=== PATIENT | male | born 1990 | race Caucasian/White ===

== ENCOUNTER 2016-11-12 08:21 | Emergency (ER) | payer SELFPAY ==
--- NOTE | 2016-11-12 09:08 | ER Document Report ---
HPI - HPI Onset: Other Onset/Duration: Gradual Quality of pain: Throbbing Pain Level: 5 Context: 26-year-old male wants a pimple cut open on his right forehead. It has been there 3 days and is getting worse without coming to a head he thinks it's too deep without cutting it open. 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 No fever. Associated Symptoms: None Exacerbated by: Denies Relieved by: Denies Similar symptoms previously: Yes Recently seen / treated by doctor: No - ROS ROS below otherwise negative: Yes Systems Reviewed and Negative: Yes All other systems reviewed and negative - CARDIOVASCULAR Cardiovascular: DENIES: Chest pain - REPRODUCTIVE Reproductive: DENIES: : - DERM Skin Color: Normal Past Medical History - General Information source: Patient - Social History Smoking Status: Current Every Day Smoker Chew tobacco use (# tins/day): No Frequency of alcohol use: Occasional Drug Abuse: None Family History: Reviewed & Not Pertinent Patient has suicidal ideation: No Patient has homicidal ideation: No Renal/ Medical History: Denies: Hx Peritoneal Dialysis Musculoskeltal Medical History: Reports Hx Musculoskeletal Trauma Skin Medical History: Reports Hx Cellulitis, Reports Hx MRSA Traumatic Medical History: Reports: Hx Fractures Infectious Medical History: Reports: Hx MRSA Past Surgical History: Reports: Hx Appendectomy - Immunizations Hx Diphtheria, Pertussis, Tetanus Vaccination: Yes Vertical Provider Document - CONSTITUTIONAL Agree With Documented VS: Yes Exam Limitations: No Limitations - INFECTION CONTROL TRAVEL OUTSIDE OF THE [place] IN LAST 30 DAYS: No - HEENT HEENT: Normocephalic Notes: Tender red indurated crusted lesion to the right forehead with surrounding swelling. - NECK Neck: Supple. negative: Lymphadenopathy-Left, Lymphadenopathy-Right - RESPIRATORY O2 Sat by Pulse Oximetry: 100 - MUSCULOSKELETAL/EXTREMETIES Musculoskeletal/Extremeties: MAEW, FROM - NEURO Level of Consciousness: Awake, Alert - DERM Integumentary: Warm, Dry, Abscess - The above Course - Vital Signs Vital signs: Temp Pulse Resp BP Pulse Ox 97.6 F 80 18 127/62 H 100 11/12/16 08:27 11/12/16 08:27 11/12/16 08:27 11/12/16 08:27 11/12/16 08:27 Procedures - Incision and Drainage Right Face Time completed: 10:08 Type: Simple Anesthetic type: 1% Lidocaine mL's of anesthetic: 3 Blade size: 11 I&D procedure: Betadine prep applied, Sterile dressing applied - corner of gauze packing Incision Method: Incision made by scalpel - 4mm with wrinkle line forehead Amount/type of drainage: large sebaceous abscess Adult Head Front/Back picture: 1 - secauceous abscess 4 mm horozontal cut Discharge - Discharge Clinical Impression: sebaceous abscess incision and drainage Condition: Good Disposition: HOME, SELF-CARE Instructions: Abscess ([facility]), Warm Packs ([facility]), Bactroban Ointment ([facility]), Trimethoprim-Sulfa ([facility]) Additional Instructions: warm compress bactroban when the pimple is small to er any concerns The dressing on for 2 days and then remove the packing at home Prescriptions: Mupirocin [Bactroban 2% Ointment 22 gm] 1 applic TP TID #22 gm Oxycodone HCl/Acetaminophen [Percocet 5-325 mg Tablet] 1 - 2 tab PO ASDIR PRN # 10 tablet PRN Reason: Sulfamethoxazole/Trimethoprim [Sulfamethoxazole-Tmp Ds Tablet] 1 each PO BID # 14 tablet Forms: Return to Work
[2016-11-12] MEDS ORDERED: OXYCODONE-ACETAMINOPHEN 5-325 MG TABLET PO ONE (10:07)
[2016-11-12] MEDS ORDERED: ONDANSETRON 4 MG TAB.RAPDIS PO ONE (10:07)
[2016-11-12] MEDS ORDERED: SULFAMETHOXAZOLE/TRIMETHOPRIM 800-160 MG TABLET PO ONE (10:07)
[2016-11-12 10:41] VITALS: BP 121/74
== END 2016-11-12 10:41 | disposition home or self-care (01) ==
LOC: ER 08:21
PROC: 0H91XZZ Drainage of Face Skin, External Approach (ICD-10-PCS; principal; 2016-11-12)
DX: L02.811 Cutaneous abscess of head [any part, except face] (principal)
CPT/HCPCS: 99283; 10060; S0119

== ENCOUNTER 2016-12-19 00:50 | Emergency (ER) | payer SELFPAY ==
[2016-12-19 01:33] VITALS: BP 119/73
== END 2016-12-19 03:53 | disposition left against medical advice (07) ==
LOC: ER 00:50
DX: Z53.21 Procedure and treatment not carried out due to patient leaving prior to being seen by health care provider (principal)

== ENCOUNTER 2017-09-26 09:09 | Emergency (ER) | payer SELFPAY ==
[2017-09-26 09:13] VITALS: BP 133/84
--- NOTE | 2017-09-26 09:22 | ER Document Report ---
ED General - General Chief Complaint: Ear Pain Stated Complaint: RIGHT EAR PAIN Time Seen by Provider: 09/26/17 09:20 Mode of Arrival: Ambulatory Information source: Patient Notes: Patient is a 26-year-old male who presents with right ear pain that started suddenly this morning when he woke up. He also endorses associated "fullness feeling" to right ear and some lightheadedness. He denies any fever, chills, headache, changes in vision, tinnitus, decreased or loss of hearing, cough, sore throat, vomiting or diarrhea. He did take a hydrocodone this morning and states "it did nothing for my pain." He is otherwise doing well. TRAVEL OUTSIDE OF THE [place] IN LAST 30 DAYS: No - Related Data Allergies/Adverse Reactions: No Known Allergies Allergy (Verified 09/26/17 09:10) Past Medical History - Social History Smoking Status: Current Every Day Smoker Family History: Reviewed & Not Pertinent Renal/ Medical History: Denies: Hx Peritoneal Dialysis Musculoskeltal Medical History: Reports Hx Musculoskeletal Trauma Skin Medical History: Reports Hx Cellulitis, Reports Hx MRSA Traumatic Medical History: Reports: Hx Fractures Infectious Medical History: Reports: Hx MRSA Past Surgical History: Reports: Hx Appendectomy - Immunizations Hx Diphtheria, Pertussis, Tetanus Vaccination: Yes Review of Systems - Review of Systems Constitutional: See HPI EENT: See HPI Cardiovascular: No symptoms reported Respiratory: No symptoms reported Gastrointestinal: No symptoms reported Genitourinary: No symptoms reported Male Genitourinary: No symptoms reported Musculoskeletal: No symptoms reported Skin: No symptoms reported Hematologic/Lymphatic: No symptoms reported Neurological/Psychological: No symptoms reported Physical Exam - Vital signs Vitals: Temp Pulse Resp BP Pulse Ox 97.9 F 102 H 18 133/84 H 98 09/26/17 09:13 09/26/17 09:13 09/26/17 09:13 09/26/17 09:13 09/26/17 09:13 - Notes Notes: PHYSICAL EXAM: CONSTITUTIONAL: Alert and oriented, well-appearing and in no acute distress. HENT: Normocephalic, atraumatic. Ear canals without erythema or foreign body, ear canals erythematous bilaterally with R TM noted to have air-fluid levels. Nares clear without erythema, septal hematoma or deviation, airway patent. Oropharynx clear without erythema, tonsilar exudate or malocclusion. Trachea midline. Uvula midline. Moist mucous membranes. EYES: Pupils equal round and reactive to light, EOM intact. Sclera anicteric, conjunctiva are normal. No entrapment. NECK: supple without lymphadenopathy. No midline tenderness or paraspinous muscle spasms. No step-offs or deformities. ROM intact. HEART: Regular rate and rhythm without murmurs. LUNGS: CTAB and equal. No wheezes, rales or rhonchi. GI: Normactive bowel sounds. Nontender, non-distended. No organomegaly. no CVAT. EXTREMITIES: Normal range of motion, no pitting edema. No cyanosis. Cap Refill < 3 seconds. NEURO: Cranial nerves grossly intact. Normal sensory/motor exams. PSYCH: Normal mood, normal affect. SKIN: Warm and dry. Normal turgor. No rashes or lesions noted. Course - Re-evaluation Re-evalutation: 09/26/17 09:34 Patient seen and examined. Patient alert and oriented, nontoxic in appearance, speaking full sentences without difficulty. Exam consistent with serous right otitis media. Will treat with antihistamine and discussed watchful waiting with use of antibiotics. Advised NSAIDs for pain. At this time, will discharge with return precautions and follow-up recommendations. Verbal discharge instructions given at the bedside and opportunity for questions given. Medication warnings reviewed. Patient is in agreement with this plan and has verbalized understanding of return precautions and the need for primary care follow-up in the next 24-72 hours. - Vital Signs Vital signs: Temp Pulse Resp BP Pulse Ox 97.9 F 102 H 18 133/84 H 98 09/26/17 09:13 09/26/17 09:13 09/26/17 09:13 09/26/17 09:13 09/26/17 09:13 Discharge - Discharge Clinical Impression: Right acute otitis media Condition: Stable Disposition: HOME, SELF-CARE Additional Instructions: OTITIS MEDIA: You have a middle ear infection (otitis media). This is usually a complication of a cold or sore throat. The middle ear cavity becomes filled with infection. Pressure and stretching of the ear drum cause pain. Antibiotics are required. A 10 day course is usually prescribed. A decongestant may be recommended if you have a "runny nose." You may need anesthetic drops or other pain medication. A follow-up exam may be recommended to make sure the infection has completely cleared. If the ear begins to drain, it means the ear drum has ruptured. This will usually heal spontaneously. However, it means you should keep the ear dry until re-examined by a doctor. Call the physician or return for examination at once if there is severe headache, stiff neck, confusion, increasing fever, or dizziness. You should improve significantly within two days. If you're not better, call the doctor. OTITIS MEDIA--CHILD: Your child has a middle ear infection (otitis media). This often occurs with a cold or sore throat. The middle ear cavity is filled by infection. The usual treatment for otitis media is a 10 day course of antibiotics. A decongestant may be recommended if your child has a "runny nose." Tylenol and/ or codeine may have been prescribed if your child is unable to sleep because of pain or for the fever. Numbing ear drops are sometimes given to decrease severe ear pain. A follow-up exam is often done in two weeks to make sure the infection has completely cleared. Call the doctor if your child does not improve within 48 hours, or if the child appears to be more ill in any way such as severe headache, stiff neck, repeated vomiting, or lethargy. If the ear begins to drain, it means the ear drum has ruptured. This will usually heal spontaneously, but it means you should keep the ear dry until the re-examination is performed. AZITHROMYCIN: Azithromycin (Zithromax) is a broad spectrum antibiotic in the same class as erythromycin. It can treat a variety of bacterial infections, but is most frequently used for respiratory infections. Azithromycin is extremely long-lasting. It accumulates in body tissues and continues to kill bacteria for many days. In order to improve absorption, Azithromycin should be taken at least one hour before or two hours after a meal. It does not have the same strong tendency to upset the stomach as erythromycin and is usually very well tolerated. Patients who have had a rash or other true allergic reactions to erythromycin should not take this medication. Call if you develop gastrointestinal distress, severe diarrhea, rash, hives, itching, or shortness of breath. USE OF ACETAMINOPHEN (Tylenol): Acetaminophen may be taken for pain relief or fever control. It's much safer than aspirin, offering a wider range of "safe" dosages. It is safe during . Some brand names are Tylenol, Panadol, Datril, Anacin 3, Tempra, and Liquiprin. Acetaminophen can be repeated every four hours. The following are maximum recommended dosages: WEIGHT Dose Drops Elixir Chewable( 80mg) (LBS.) drprs=droppers tsp=teaspoon 6 40 mg 0.4 ml (1/2) 6-11 80 mg 0.8 ml (full) tsp 1 tab 12-16 120 mg 1 1/2 drprs 3/4 tsp 1 1/2 tabs 17-23 160 mg 2 drprs 1 tsp 2 tabs 24-30 240 mg 3 drprs 1 1/2 tsp 3 tabs 30-35 320 mg 2 tsp 4 tabs 36-41 360 mg 2 1/4 tsp 4 1/2 tabs 42-47 400 mg 2 1/2 tsp 5 tabs 48-53 480 mg 3 tsp 6 tabs 54-59 520 mg 3 1/4 tsp 6 1/2 tabs 60-64 560 mg 3 1/2 tsp 7 tabs 65-70 600 mg 3 3/4 tsp 7 1/2 tabs 71-76 640 mg 4 tsp 8 tabs 77-82 720 mg 4 1/2 tsp 9 tabs 83-88 800 mg 5 tsp 10 tabs >89 pounds or adults 650 mg to 900 mg Acetaminophen can be repeated every four hours. Maximum dose not to exceed 4000 mg a day. These maximum recommended dosages are slightly higher than the dosages written on the product container, but these dosages are very safe and below the toxic dosage for acetaminophen. FOLLOW-UP CARE: If you have been referred to a physician for follow-up care, call the physician s office for an appointment as you were instructed or within the next two days. If you experience worsening or a significant change in your symptoms, notify the physician immediately or return to the Emergency Department at any time for re-evaluation. Prescriptions: Azithromycin [Zithromax 250 mg Tablet] 250 mg PO ASDIR #6 tablet Naproxen [Naprosyn 250 mg Tablet] 250 mg PO BID #14 tablet Forms: Elevated Blood Pressure
[2017-09-26] MEDS ORDERED: IBUPROFEN 600 MG TABLET PO ONE (09:32)
== END 2017-09-26 09:48 | disposition home or self-care (01) ==
LOC: ER 09:09
DX: H66.91 Otitis media, unspecified, right ear (principal); H92.01 Otalgia, right ear; R42 Dizziness and giddiness; F17.200 Nicotine dependence, unspecified, uncomplicated; Z86.14 Personal history of Methicillin resistant Staphylococcus aureus infection
CPT/HCPCS: 99282

== ENCOUNTER 2017-12-24 11:55 | Emergency (ER) | payer SELFPAY ==
[2017-12-24 12:03] VITALS: BP 123/77
[2017-12-24] MEDS ORDERED: CEPHALEXIN 500 MG CAPSULE PO ONE (12:33)
[2017-12-24] MEDS ORDERED: SULFAMETHOXAZOLE/TRIMETHOPRIM 800-160 MG TABLET PO ONE (12:33)
[2017-12-24] MEDS ORDERED: IBUPROFEN 800 MG TABLET PO ONE (12:33)
--- NOTE | 2017-12-24 12:39 | ER Document Report ---
ED Skin Rash/Insect Bite/Abscs - General Chief Complaint: Insect Bite Stated Complaint: POSSIBLE SPIDER BITE Time Seen by Provider: 12/24/17 12:17 Mode of Arrival: Ambulatory Information source: Patient Notes: 27-year-old male presented ED for complaint of possible spider bite 2 days ago to his right forearm antecubital and upper arm. He states he had a soft area that he stuck a needle in the day and got a little bit of pus out and then came in to have his arm checked out. He denies any use of drugs. TRAVEL OUTSIDE OF THE [place] IN LAST 30 DAYS: No - HPI Patient complains to provider of: Tender/swollen area Onset: Other - 2 days ago Onset/Duration: Gradual Quality of pain: Achy Severity: Mild Pain Level: 1 Skin Character: Erythema, Tenderness, Thickening Skin Temperature: Warm Quality of rash: Painful Identify cause: No Exacerbated by: Denies Relieved by: Denies Similar symptoms previously: Yes Recently seen / treated by doctor: No - Related Data Allergies/Adverse Reactions: No Known Allergies Allergy (Verified 12/24/17 12:09) Past Medical History - General Information source: Patient - Social History Smoking Status: Current Every Day Smoker Cigarette use (# per day): Yes - 1-1/2 packs per day Chew tobacco use (# tins/day): No Smoking Education Provided: Yes - 4 minutes Frequency of alcohol use: None Drug Abuse: None Occupation: [employer] Lives with: Family Family History: Arthritis, COPD, CVA, DM, Malignancy, Thyroid Disfunction. denies: CAD, Hyperlipidemia, Hypertension Patient has suicidal ideation: No Patient has homicidal ideation: No - Past Medical History Cardiac Medical History: Reports: None Pulmonary Medical History: Reports: None EENT Medical History: Reports: None Neurological Medical History: Reports: None Endocrine Medical History: Reports: None Renal/ Medical History: Reports: None Malignancy Medical History: Reports None GI Medical History: Reports: None Musculoskeltal Medical History: Reports Hx Musculoskeletal Trauma Skin Medical History: Reports Hx Cellulitis, Reports Hx MRSA Psychiatric Medical History: Reports: None Traumatic Medical History: Reports: Hx Fractures Infectious Medical History: Reports: Hx MRSA Past Surgical History: Reports: Hx Appendectomy - Immunizations Hx Diphtheria, Pertussis, Tetanus Vaccination: Yes Review of Systems - Review of Systems Constitutional: No symptoms reported EENT: No symptoms reported Cardiovascular: No symptoms reported Respiratory: No symptoms reported Gastrointestinal: No symptoms reported Genitourinary: No symptoms reported Male Genitourinary: No symptoms reported Musculoskeletal: No symptoms reported Skin: Change in color Hematologic/Lymphatic: No symptoms reported Neurological/Psychological: No symptoms reported Physical Exam - Vital signs Vitals: Temp Pulse Resp BP Pulse Ox 98.2 F 102 H 18 123/77 96 12/24/17 11:59 12/24/17 11:59 12/24/17 11:59 12/24/17 11:59 12/24/17 11:59 Interpretation: Normal - General General appearance: Appears well, Alert - HEENT Head: Normocephalic, Atraumatic Eyes: Normal Pupils: PERRL - Respiratory Respiratory status: No respiratory distress Chest status: Nontender Breath sounds: Normal Chest palpation: Normal - Cardiovascular Rhythm: Regular Heart sounds: Normal auscultation Murmur: No - Abdominal Inspection: Normal Distension: No distension Bowel sounds: Normal Tenderness: Nontender Organomegaly: No organomegaly - Back Back: Normal, Nontender - Extremities General upper extremity: Normal inspection, Nontender, Normal color, Normal ROM , Normal temperature General lower extremity: Normal inspection, Nontender, Normal color, Normal ROM , Normal temperature, Normal weight bearing. No: Mauricio's sign - Neurological Neuro grossly intact: Yes Cognition: Normal Orientation: AAOx4 Chavez Coma Scale Eye Opening: Spontaneous Jones Coma Scale Verbal: Oriented Chavez Coma Scale Motor: Obeys Commands Jones Coma Scale Total: 15 Speech: Normal Motor strength normal: LUE, RUE, LLE, RLE Sensory: Normal - Psychological Associated symptoms: Normal affect, Normal mood - Skin Skin Temperature: Warm Skin Moisture: Dry Skin Color: Normal Skin irregularity: negative: Abscess Location of irregularity: Extremities - Right arm from just above the antecubital to a little below the antecubital Character of irregularity: Erythematous Irregularity with: Swelling, Tenderness - Red firm tender area to the right upper forearm antecubital and lower upper arm. No definite abscess noted, Thickening Course - Vital Signs Vital signs: Temp Pulse Resp BP Pulse Ox 98.2 F 102 H 18 123/77 96 12/24/17 11:59 12/24/17 11:59 12/24/17 11:59 12/24/17 11:59 12/24/17 11:59 Discharge - Discharge Clinical Impression: Cellulitis of right arm Condition: Stable Disposition: HOME, SELF-CARE Instructions: Family Physicians / Practices Additional Instructions: CELLULITIS: You have an infection of your skin and underlying soft tissues called cellulitis. This is due to bacteria, which can enter through any break in the skin, or even through an irritated hair follicle. Untreated, cellulitis will usually worsen. Antibiotics are required. Usually, warm packs or warm soaks, and elevation of the infected area are recommended. You should start getting better within 24 to 36 hours. Most infections respond quickly to the right medication. Follow-up care is important, however, to check for abscess (boil) formation, unsuspected foreign body, or resistant infection. If you develop fever, chills, or if the area of infection is becoming rapidly more swollen or painful, call the doctor at once. MRSA CELLULITIS: You have an infection of your skin and underlying soft tissues called cellulitis. This is due to bacteria, which can enter through any break in the skin, or even through an irritated hair follicle. Untreated, cellulitis will usually worsen and may form an abscess which requires draining. Although many bacterial organisms can cause cellulitis and abscess formations, the most likely bacteria is Methicillin-Resistant Staph Aureus, or MRSA for short. Antibiotics are required. Usually, warm packs or warm soaks, and elevation of the infected area are recommended. You should start getting better within 24 to 36 hours. Most infections respond quickly to the right medication. Follow-up care is important, however, to check for abscess (boil) formation, unsuspected foreign body, or resistant infection. If you develop fever, chills, or if the area of infection is becoming rapidly more swollen or painful, call the doctor at once. TRIMETHOPRIM-SULFA: You have been given a prescription for trimethoprim-sulfa (TMS, Septra, Bactrim). This is a combination antibiotic of the sulfa class, often used for urinary tract infections, middle ear infections, bronchitis, shigella intestinal infection, and Pneumocystis pneumonia. TMS is usually well-tolerated. Occasional side effects include nausea and decreased appetite. Septra is not recommended for infants less than two months of age. Do not take this medication if you have experienced severe side effects or allergy to sulfa medicine. You should stop this medicine at once and contact your physician if you develop any rash, joint pain, shortness of breath, bruising, or jaundice ( yellow color in the skin), or if you develop any other new or unusual symptoms. Cephalexin The antibiotic you've been prescribed is a member of the cephalosporin class. This type of antibiotic covers a wide variety of infections, including those of the skin, lungs, and urinary tract. It's useful for staph infections. This antibiotic is slightly similar to the penicillin family. In rare cases , a person who is allergic to penicillin will also be allergic to this medication. If you have had a severe allergic reaction to penicillin, and have not taken this antibiotic since that time, notify your doctor. Antibiotics which cover many germs ("broad spectrum" antibiotics) are more likely to cause diarrhea or "yeast" infections. Women prone to vaginal yeast problems may suffer an attack after taking this antibiotic. In infants, oral thrush (white spots "stuck" on the cheek) or yeast diaper rash may result. See your doctor if these problems occur. Call at once if you develop itching, hives , shortness of breath, or lightheadedness. Anti-Inflammatory Medication You have received a prescription for an antiinflammatory agent. This is an excellent, safe drug for pain control. In addition, it has potent antiinflammatory effects which are beneficial, especially in the treatment of injuries, arthritis, or tendonitis. It's best to take this medicine with food. Persons with ulcer disease or allergy to aspirin should notify their physician of this before taking this drug. Take the medication exactly as prescribed. Don't take additional doses unless instructed to do so by your doctor. If you develop wheezing, shortness of breath, hives, faintness, stomach pain, vomiting, or dark black stools, return for re-evaluation at once. Epsom Salt Soaks Soak the wound area in a container of warm epsom salt water. If you can't get the wound area into a bucket or joseph, use a folded towel soaked in the epsom salt solution and apply to the area. Use clean hot tap water (about the temperature of a very warm bath), mixing in about one (1) teaspoon for every pint of water. Two gallon --> 16 teaspoons Epsom Salts One gallon --> 8 teaspoons Epsom Salts Two quarts --> 4 teaspoons Epsom Salts One quart --> 2 teaspoons Epsom Salts Soak the wound for about 20 minutes while gently moving it around in the water. Repeat this four (4) times a day. FOLLOW-UP CARE: If you have been referred to a physician for follow-up care, call the physician s office for an appointment as you were instructed or within the next two days. If you experience worsening or a significant change in your symptoms, notify the physician immediately or return to the Emergency Department at any time for re-evaluation. Prescriptions: Ibuprofen 800 mg PO Q8HP PRN #14 tablet PRN Reason: Cephalexin Monohydrate [Keflex 500 mg Capsule] 500 mg PO QID #20 capsule Sulfamethoxazole/Trimethoprim [Bactrim Ds Tablet] 1 each PO BID #20 tablet Forms: Smoking Cessation Education, Return to Work
== END 2017-12-24 13:24 | disposition home or self-care (01) ==
LOC: ER 11:55
DX: L03.113 Cellulitis of right upper limb (principal); F17.210 Nicotine dependence, cigarettes, uncomplicated; Z71.6 Tobacco abuse counseling; Z86.14 Personal history of Methicillin resistant Staphylococcus aureus infection
CPT/HCPCS: 99281; 99406

== ENCOUNTER 2018-03-08 11:21 | Emergency (ER) | payer SELFPAY ==
[2018-03-08 11:26] VITALS: BP 136/88
[2018-03-08] MEDS ORDERED: PENICILLIN V POTASSIUM 500 MG TABLET PO ONE (11:50)
[2018-03-08] MEDS ORDERED: OXYCODONE-ACETAMINOPHEN 5-325 MG TABLET PO ONE (11:50)
--- NOTE | 2018-03-08 11:56 | ER Document Report ---
HPI - HPI Patient complains to provider of: Dental pain Onset: Other - 3 days Onset/Duration: Persistent Quality of pain: Sharp Pain Level: 5 Context: Patient complains of dental pain from a broken tooth for the past 3 days. Patient states he has had purulent drainage from his gums. Patient denies any fever. Associated Symptoms: Other - Dental infection Exacerbated by: Denies Relieved by: Denies Similar symptoms previously: Yes Recently seen / treated by doctor: No - ROS ROS below otherwise negative: Yes Systems Reviewed and Negative: Yes All other systems reviewed and negative - CONSTITUTIONAL Constitutional: DENIES: Fever, Chills - EENT Notes: Dental pain - RESPIRATORY Respiratory: DENIES: Coughing - GASTROINTESTINAL Gastrointestinal: DENIES: Nausea, Patient vomiting - REPRODUCTIVE Reproductive: DENIES: : - DERM Skin Color: Normal Skin Problems: None Past Medical History - General Information source: Patient - Social History Smoking Status: Current Every Day Smoker Chew tobacco use (# tins/day): No Frequency of alcohol use: None Drug Abuse: None Occupation: [employer] Lives with: Spouse/Significant other Family History: Arthritis, COPD, CVA, DM, Malignancy, Thyroid Disfunction. denies: CAD, Hyperlipidemia, Hypertension Patient has suicidal ideation: No Patient has homicidal ideation: No Renal/ Medical History: Denies: Hx Peritoneal Dialysis Musculoskeltal Medical History: Reports Hx Musculoskeletal Trauma Skin Medical History: Reports Hx Cellulitis, Reports Hx MRSA Traumatic Medical History: Reports: Hx Fractures Infectious Medical History: Reports: Hx MRSA Past Surgical History: Reports: Hx Appendectomy, Hx Orthopedic Surgery - Immunizations Hx Diphtheria, Pertussis, Tetanus Vaccination: Yes Vertical Provider Document - CONSTITUTIONAL Agree With Documented VS: Yes Exam Limitations: No Limitations General Appearance: WD/WN, No Apparent Distress - INFECTION CONTROL TRAVEL OUTSIDE OF THE [place] IN LAST 30 DAYS: No - HEENT HEENT: Atraumatic, Normocephalic Mouth Diagram: 1 - Dental decay, gingival induration, no drainable abscess, no submental or sublingual swelling - NECK Neck: Normal Inspection, Supple. negative: Lymphadenopathy-Left, Lymphadenopathy-Right - RESPIRATORY Respiratory: Breath Sounds Normal, No Respiratory Distress - CARDIOVASCULAR Cardiovascular: Regular Rate, Regular Rhythm - MUSCULOSKELETAL/EXTREMETIES Musculoskeletal/Extremeties: MAEW - NEURO Level of Consciousness: Awake, Alert, Appropriate Motor/Sensory: No Motor Deficit - DERM Integumentary: Warm, Dry Course - Re-evaluation Re-evalutation: 03/08/18 11:51 Controlled substance database reviewed. 03/08/18 12:00 Offered patient a dental block, patient declined. - Vital Signs Vital signs: Temp Pulse Resp BP Pulse Ox 98.3 F 105 H 18 136/88 H 97 03/08/18 11:24 03/08/18 11:24 03/08/18 11:24 03/08/18 11:24 03/08/18 11:24 Discharge - Discharge Clinical Impression: Infected dental caries Condition: Stable Disposition: HOME, SELF-CARE Instructions: Dental Infection or Abscess ([facility]), Penicillin V K ([facility]), Ultram ( [facility]) Additional Instructions: Return immediately for any new or worsening symptoms Followup with your primary care provider, call tomorrow to make a followup appointment Follow-up with a dentist Prescriptions: Naproxen [Naprosyn 250 Nmg Tablet] 1 tab PO BID #14 tablet Penicillin V Potassium [Penicillin Vk 500 mg Tablet] 500 mg PO BID #20 tablet Tramadol HCl [Ultram 50 mg Tablet] 50 mg PO ASDIR PRN #20 tablet PRN Reason: Forms: Smoking Cessation Education, Return to Work Referrals: DENTISTRY [Provider Group] - Follow up as needed [facility] [Provider Group] - Follow up as needed
== END 2018-03-08 12:01 | disposition home or self-care (01) ==
LOC: ER 11:21
DX: K04.7 Periapical abscess without sinus (principal); K02.9 Dental caries, unspecified; K08.89 Other specified disorders of teeth and supporting structures; F17.200 Nicotine dependence, unspecified, uncomplicated
CPT/HCPCS: 99282

== ENCOUNTER 2018-03-10 11:34 | Emergency (ER) | payer SELFPAY ==
[2018-03-10] MEDS ORDERED: NORMAL SALINE 1000 ML 1,000 ML IV ONE (12:09)
[2018-03-10] MEDS ORDERED: MORPHINE SULFATE 10 MG/ML INJ IV ONE ×2 (12:09→14:25)
--- NOTE | 2018-03-10 12:13 | ER Document Report ---
ED Medical Screen (RME) - General Chief Complaint: Toothache Stated Complaint: TOOTH PAIN Time Seen by Provider: 03/10/18 12:09 TRAVEL OUTSIDE OF THE [place] IN LAST 30 DAYS: No - HPI Notes: 03/10/18 12:10 Unfortunate 27-year-old male presents with fever, weakness and chills increasing right-sided facial swelling. Patient has a broken lower right molar. Seen in the emergency department last week. Was given prescription for penicillin. Patient was scheduled to follow-up with his dentist this afternoon. But due to the profound infection dentist would not see the patient. Patient comes in with profound pain 10/10 throbbing in nature without radiation nothing is made it better or worse. An increasing right-sided facial swelling. Patient is now experiencing trismus inability to open his mouth increased purulent discharge into his mouth foul swell fevers at home. Patient took antipyretics prior to arrival. Swelling on patient's face has increased greatly since being seen last 03/10/18 12:12 - Related Data Allergies/Adverse Reactions: No Known Allergies Allergy (Verified 03/10/18 11:35) Past Medical History - Social History Chew tobacco use (# tins/day): - 15 Frequency of alcohol use: None Drug Abuse: None Renal/ Medical History: Denies: Hx Peritoneal Dialysis Musculoskeltal Medical History: Reports Hx Musculoskeletal Trauma Skin Medical History: Reports Hx Cellulitis, Reports Hx MRSA Traumatic Medical History: Reports: Hx Fractures Infectious Medical History: Reports: Hx MRSA Past Surgical History: Reports: Hx Appendectomy, Hx Orthopedic Surgery - Right hand - Immunizations Hx Diphtheria, Pertussis, Tetanus Vaccination: Yes Review of Systems - Review of Systems Notes: REVIEW OF SYSTEMS: CONSTITUTIONAL fever EENT: -eye pain, -difficulty swallowing, -nasal congestion CARDIOVASCULAR: -chest pain, -syncope. RESPIRATORY: -cough, -SOB GASTROINTESTINAL: -abdominal pain, -nausea, -vomiting, -diarrhea GENITOURINARY: -dysuria, -hematuria MUSCULOSKELETAL: -back pain, -neck pain SKIN: -rash or skin lesions. HEMATOLOGIC: -easy bruising or bleeding. LYMPHATIC: -swollen, enlarged glands. NEUROLOGICAL: -altered mental status or loss of consciousness, -headache, - neurologic symptoms PSYCHIATRIC: -anxiety, -depression. ALL OTHER SYSTEMS REVIEWED AND NEGATIVE. Physical Exam - Vital signs Vitals: Temp Pulse Resp BP Pulse Ox 98.6 F 108 H 18 135/90 H 99 03/10/18 11:44 03/10/18 11:44 03/10/18 11:44 03/10/18 11:44 03/10/18 11:44 - Notes Notes: PHYSICAL EXAMINATION: GENERAL: Well-appearing, well-nourished and in no acute distress. HEAD: Atraumatic, normocephalic. EYES: Pupils equal round and reactive to light, extraocular movements intact, sclera anicteric, conjunctiva are normal. ENT: Obvious right-sided facial swelling, purulent discharge from patient's mouth. We are molar. Unable to palpate specific fluctuant mass in patient's right lower cheek although with profound swelling. NECK: Normal range of motion, supple without lymphadenopathy LUNGS: Breath sounds clear to auscultation bilaterally and equal. No wheezes rales or rhonchi. HEART: Regular rate and rhythm without murmurs ABDOMEN: Soft, nontender, normoactive bowel sounds. No guarding, no rebound. No masses appreciated. EXTREMITIES: Normal range of motion, no pitting or edema. No cyanosis. NEUROLOGICAL: Cranial nerves grossly intact. Normal speech, normal gait. Normal sensory and motor exams. PSYCH: Normal mood, normal affect. SKIN: Warm, Dry, normal turgor, no rashes or lesions noted. Course - Vital Signs Vital signs: Temp Pulse Resp BP Pulse Ox 98.6 F 108 H 18 135/90 H 99 03/10/18 11:44 03/10/18 11:44 03/10/18 11:44 03/10/18 11:44 03/10/18 11:44
[2018-03-10 13:05] LABS: ABSOLUTE EOSINOPHILS # (AUTO) 0.1 10^3/uL (0.0-0.6); ABSOLUTE LYMPHOCYTES (AUTO) 2.6 10^3/uL (0.5-4.7); ABSOLUTE MONOCYTES (AUTO) 0.5 10^3/uL (0.1-1.4); ABSOLUTE NEUT (AUTO) 5.3 10^3/uL (1.7-8.2); BASOPHILS % (AUTO) 0.5 % (0-2); EOSINOPHILS % (AUTO) 1.6 % (0-6); HEMOGLOBIN 14.1 g/dL (13.5-17.0); LYMPHOCYTES % (AUTO) 30.3 % (13-45); MEAN CORPUSCULAR HEMOGLOBIN 30.6 pg (27.0-33.4); MEAN CORPUSCULAR HGB CONC 35.2 g/dL (32.0-36.0); MEAN CORPUSCULAR VOLUME 87 fl (80-97); MONOCYTES % (AUTO) 6.1 % (3-13); PLATELET COUNT 411 10^3/uL (150-450); RED CELL DISTRIBUTION WIDTH 13.6 % (11.5-14.0); SEGMENTED NEUTROPHILS % (AUTO) 61.5 % (42-78); TOTAL CELLS COUNTED % (AUTO) 100 %; WHITE BLOOD COUNT 8.5 10^3/uL (4.0-10.5)
--- NOTE | 2018-03-10 13:28 | ER Document Report ---
ED Oral Problem - General Mode of Arrival: Ambulatory Information source: Patient TRAVEL OUTSIDE OF THE [place] IN LAST 30 DAYS: No <VAISHALI PHAN - Last Filed: 03/10/18 18:43> <SOPHIE EDWARDS - Last Filed: 03/10/18 19:17> - General Chief Complaint: Toothache Stated Complaint: TOOTH PAIN Time Seen by Provider: 03/10/18 12:09 Notes: Patient is a 27 year old male that presents to the emergency department today with complaints of a "knot on his gum" for the last few days. Patient was started on penicillin 2 days ago and he states he has taken his medications as prescribed and has not missed any dosages. Patient states he feels like the swelling is getting worse and the pain has gotten much more severe. Patient states he feels like he is tasting pus coming out of the broken tooth. Patient states the pain seems to be radiating to his right ear and right shoulder now. Patient states he has had sweats and chills. Patient has a temperature of 100.2 yesterday. (VAISHALI PHAN) - Related Data Allergies/Adverse Reactions: No Known Allergies Allergy (Verified 03/10/18 11:35) Past Medical History - Social History Smoking Status: Current Every Day Smoker Cigarette use (# per day): Yes - 1/2ppd Frequency of alcohol use: None Drug Abuse: None Lives with: Family Family History: Arthritis, COPD, CVA, DM, Malignancy, Thyroid Disfunction Patient has suicidal ideation: No Patient has homicidal ideation: No Musculoskeltal Medical History: Reports Hx Musculoskeletal Trauma Skin Medical History: Reports Hx Cellulitis, Reports Hx MRSA Traumatic Medical History: Reports: Hx Fractures Infectious Medical History: Reports: Hx MRSA Past Surgical History: Reports: Hx Appendectomy, Hx Orthopedic Surgery - Right hand - Immunizations Hx Diphtheria, Pertussis, Tetanus Vaccination: Yes <VAISHALI PHAN - Last Filed: 03/10/18 18:43> Review of Systems - Review of Systems Constitutional: See HPI, Chills, Fever, Other - sweats EENT: See HPI, Mouth pain, Dental problem Cardiovascular: No symptoms reported Respiratory: No symptoms reported Gastrointestinal: No symptoms reported Genitourinary: No symptoms reported Male Genitourinary: No symptoms reported Musculoskeletal: No symptoms reported Skin: No symptoms reported Hematologic/Lymphatic: No symptoms reported Neurological/Psychological: No symptoms reported -: Yes All other systems reviewed and negative <SYLVESTER,VAISHALI - Last Filed: 03/10/18 18:43> Physical Exam <VAISHALI PHAN - Last Filed: 03/10/18 18:43> <SOPHIE EDWARDS - Last Filed: 03/10/18 19:17> - Vital signs Vitals: Temp Pulse Resp BP Pulse Ox 98.6 F 108 H 18 135/90 H 99 03/10/18 11:44 03/10/18 11:44 03/10/18 11:44 03/10/18 11:44 03/10/18 11:44 - Notes Notes: PHYSICAL EXAM GENERAL: Alert, interacts well. Appears uncomfortable. HEAD: Normocephalic, atraumatic. EYES: Pupils equal, round, and reactive to light. Extraocular movements intact. ENT: Oral mucosa moist, tongue midline. Right sided and submandibular swelling and tenderness with palpation. No induration under the tongue. outside portion of 2nd to last molar on the bottom right is fractured, no erythema. Trismus, limited jaw opening approximately 1 cm. NECK: Full range of motion. Supple. Trachea midline. LUNGS: Clear to auscultation bilaterally, no wheezes, rales, or rhonchi. No respiratory distress. HEART: Regular rate and rhythm. No murmurs, gallops, or rubs. ABDOMEN: Non-distended. EXTREMITIES: Moves all 4 extremities spontaneously. NEUROLOGICAL: Alert and oriented x3. Normal speech. PSYCH: Normal affect, normal mood. SKIN: Warm, dry, normal turgor. No rashes or lesions noted. (VAISHALI PHAN) Course - Laboratory Result Diagrams: 03/10/18 12:33 03/10/18 12:33 <VAISHALI PHAN - Last Filed: 03/10/18 18:43> - Laboratory Result Diagrams: 03/10/18 12:33 03/10/18 12:33 <SOPHIE EDWARDS - Last Filed: 03/10/18 19:17> - Re-evaluation Re-evalutation: 03/10/18 15:27 CBC unremarkable, BMP unremarkable, lactic acid negative, calcium slightly elevated at 10.3, CT scan of the facial bones does not show any active abscess, it shows soft tissue edema and inflammation of the right side of the face adjacent to the mandible, no evidence of soft tissue abscess, there is prominent right submandibular adenopathy and in the adjacent mandible there is a molar with significant decay and periodontal disease with periapical resorption adjacent to the roots. 03/10/18 15:28 Patient is able to open his mouth, there is some pus draining from the site but no large fluid collection remaining on the CAT scan. I do not see any fluctuant or feel any fluctuant area that I could drain at this time. The pus is draining from the fractured part of the tooth. Patient will be switched from oral penicillin to clindamycin by mouth, he is already been given a dose IV. He will also be given Robaxin as a muscle relaxer, Rillito for pain as well as Tessalon Perles to use topically. Instructed to follow-up with dentist as an outpatient. (SOPHIE EDWARDS) - Vital Signs Vital signs: Temp Pulse Resp BP Pulse Ox 97.7 F 90 18 140/93 H 100 03/10/18 16:04 03/10/18 16:04 03/10/18 16:04 03/10/18 16:04 03/10/18 16:04 - Laboratory Laboratory results interpreted by me: 03/10/18 03/10/18 12:33 13:14 Lactic Acid 0.6 L Calcium 10.3 H Discharge <VAISHALI PHAN - Last Filed: 03/10/18 18:43> <SOPHIE EDWARDS - Last Filed: 03/10/18 19:17> - Discharge Clinical Impression: Infected dental caries, Disease of periapical tissues of tooth Fractured tooth Qualifiers: Encounter type: subsequent encounter Fracture type: open Fracture healing: with delayed healing Qualified Code(s): S02.5XXG - Fracture of tooth (traumatic) , subsequent encounter for fracture with delayed healing Condition: Stable Disposition: HOME, SELF-CARE Additional Instructions: Please stop taking the penicillin and start taking the clindamycin. You may take Motrin 800 mg every 8 hours as needed for pain. You may also use Tessalon Perles to decrease the pain, he should poke a hole in the Priscila and hold it over top of the painful tooth and slowly let the liquid seep out. You may use 1 of these every 8 hours. If the pain continues please try the hydrocodone as prescribed. You may also use the Robaxin as prescribed to help open your mouth wider. If the pain gets worse, you have fevers after the next 48 hours, you cannot open your mouth at all or you develop any new or concerning symptoms please return to the emergency department. Otherwise follow-up with your dentist in the next few days. Prescriptions: Hydrocodone/Acetaminophen [Rillito 5-325 mg Tablet] 1 tab PO Q4HP PRN #20 tablet PRN Reason: Benzonatate [Tessalon Perles 100 mg Capsule] 100 mg PO ASDIR PRN #40 capsule PRN Reason: Clindamycin HCl 300 mg PO QID #28 capsule Methocarbamol [Robaxin 750 mg Tablet] 750 mg PO ASDIR PRN #40 tablet PRN Reason: Adry Attestation: 03/10/18 19:17 I personally performed the services described in the documentation, reviewed and edited the documentation which was dictated to the scribe in my presence, and it accurately records my words and actions. (SOPHIE EDWARDS) Scribe Documentation - Scribe Written by Adry:: Adry Rajput, 03/10/2018 1445 acting as scribe for :: Kedar <VAISHALI PHAN - Last Filed: 03/10/18 18:43>
[2018-03-10] MEDS ORDERED: CLINDAMYCIN 600 MG/D5W RTU 600 MG/50 ML RTUPB IV ONE (13:31)
[2018-03-10 13:54] LABS: ANION GAP 13 (5-19); BLOOD UREA NITROGEN 20 mg/dL (7-20); CALCIUM 10.3 mg/dL (8.4-10.2); CARBON DIOXIDE 28 mmol/L (22-30); CHLORIDE 101 mmol/L (98-107); GLUCOSE 92 mg/dL (75-110); POTASSIUM 4.4 mmol/L (3.6-5.0); SODIUM 142.1 mmol/L (137-145)
--- NOTE | 2018-03-10 15:14 | RADIOLOGY REPORT (SQ) ---
EXAM DESCRIPTION: CT FACIAL AREA WITH COMPLETED DATE/TIME: 03/10/2018 2:46 pm REASON FOR STUDY: facial swelling abscess COMPARISON: None. TECHNIQUE: Post contrast images through the facial bones and orbits windowed for bone and soft tissu e. Additional coronal and sagittal reconstructed images reviewed. All images stored on PACS. All CT scanners at this facility use dose modulation, iterative reconstruction, and/or weight based d osing when appropriate to reduce radiation dose to as low as reasonably achievable (ALARA). [facility]: Dose Right [facility]: CareDose [facility]: Dose Right [facility]: Teradose 4D [facility]: Leixir CONTRAST TYPE AND DOSE: contrast/concentration: Isovue 370.00 mg/ml; Total Contrast Delivered: 75.0 ml; Total Saline Delivered: 55.0 ml RENAL FUNCTION: BUN 20 creatinine 1.08. RADIATION DOSE: CT Rad equipment meets quality standard of care and radiation dose reduction techniq ues were employed. CTDIvol: 30.4 mGy. DLP: 646 mGy-cm. . LIMITATIONS: None. FINDINGS: FACIAL BONES: No fracture or bone lesion. ORBITS: Intact. No fracture. Symmetric intact globes and retroorbital soft tissues. PARANASAL SINUSES: Mucous membrane thickening in the right maxillary sinus. No fluid. Narrowing of t he right ostiomeatal unit. SOFT TISSUES: Soft tissue edema and inflammation on the right side of the face adjacent to the mandib le. No evidence of abscess. Several enlarged lymph nodes in the right submandibular area measuring up to 1.2 cm. Unremarkable appearance of the parotid and submandibular glands. INFERIOR BRAIN: Limited view. No acute findings. OTHER: There is a right mandibular molar with extensive decay involving the crown and prominent peria pical resorption adjacent to the roots. IMPRESSION: SOFT TISSUE EDEMA AND INFLAMMATION ON THE RIGHT SIDE OF FACE ADJACENT TO THE MANDIBLE. NO EVIDENCE OF SOFT TISSUE ABSCESS. THERE IS ALSO PROMINENT RIGHT SUBMANDIBULAR ADENOPATHY. IN THE ADJACENT MANDIBLE THERE IS A MOLAR WITH SIGNIFICANT DECAY AND PERIODONTAL DISEASE WITH PERIAPICAL RES ORPTION ADJACENT TO THE ROOTS. PRESUMABLY THE SOFT TISSUE CHANGES ARE RELATED TO DENTAL DISEASE AND INFECTION. TECHNICAL DOCUMENTATION: JOB ID: [id number] Quality ID # [id number]: Final reports with documentation of one or more dose reduction techniques (e.g., Au tomated exposure control, adjustment of the mA and/or kV according to patient size, use of iterative reconstruction technique) 2010 [employer]- All Rights Reserved Reading location - IP/workstation name: [email or web address]
[2018-03-10 16:05] VITALS: BP 140/93
== END 2018-03-10 16:05 | disposition home or self-care (01) ==
LOC: ER 11:34
DX: S02.5XXG Fracture of tooth (traumatic), subsequent encounter for fracture with delayed healing (principal); K04.90 Unspecified diseases of pulp and periapical tissues; K04.7 Periapical abscess without sinus; K08.89 Other specified disorders of teeth and supporting structures; H92.01 Otalgia, right ear; M25.511 Pain in right shoulder; X58.XXXD Exposure to other specified factors, subsequent encounter; F17.210 Nicotine dependence, cigarettes, uncomplicated
CPT/HCPCS: 99284; 36415; 87040; 83605; 85025; 80048; 70487; J2270; J7030

== ENCOUNTER 2018-12-18 09:31 | Emergency (ER) | payer SELFPAY ==
[2018-12-18] MEDS ORDERED: PIPERACILLIN/TAZOBACTAM 4.5 GM VIAL IV ONE (10:57)
[2018-12-18] MEDS ORDERED: ACETAMINOPHEN 325 MG TABLET PO ONE (10:57)
[2018-12-18] MEDS ORDERED: VANCOMYCIN HCL INJ 1000 MG VIAL IV ONE (10:57)
[2018-12-18] MEDS ORDERED: NORMAL SALINE 1000 ML 1,000 ML IV ONE (10:57)
[2018-12-18] MEDS ORDERED: KETOROLAC TROMETHAMINE INJ/PF 30 MG/1 ML SDV IV ONE (11:01)
[2018-12-18] MEDS ORDERED: ONDANSETRON HCL INJ/PF 4 MG/2 ML SDV IV ONE (11:01)
--- NOTE | 2018-12-18 11:03 | ER Document Report ---
ED Medical Screen (RME) - General Chief Complaint: Abscess Stated Complaint: POSSIBLE ABSCESS Time Seen by Provider: 12/18/18 11:02 TRAVEL OUTSIDE OF THE [place] IN LAST 30 DAYS: No - HPI Notes: 12/18/18 11:02 Patient complained of left axilla lump which is painful with surrounding redness. This has been ongoing for the past 2 days. Patient denies any history of injury. Skull exam shows a left axillary abscess with surrounding erythema which is spreading down the left arm. Patient also said his last tetanus was less than 10 years ago. - Related Data Allergies/Adverse Reactions: No Known Allergies Allergy (Verified 12/18/18 09:39) Past Medical History - Social History Chew tobacco use (# tins/day): No Frequency of alcohol use: None Drug Abuse: Heroin Renal/ Medical History: Denies: Hx Peritoneal Dialysis Musculoskeltal Medical History: Reports Hx Musculoskeletal Trauma Skin Medical History: Reports Hx Cellulitis, Reports Hx MRSA Traumatic Medical History: Reports: Hx Fractures Infectious Medical History: Reports: Hx MRSA Past Surgical History: Reports: Hx Appendectomy, Hx Orthopedic Surgery - Right hand - Immunizations Hx Diphtheria, Pertussis, Tetanus Vaccination: Yes Physical Exam - Vital signs Vitals: Temp Pulse Resp BP Pulse Ox 99.0 F 107 H 16 121/62 98 12/18/18 09:43 12/18/18 09:43 12/18/18 09:43 12/18/18 09:43 12/18/18 09:43 Course - Vital Signs Vital signs: Temp Pulse Resp BP Pulse Ox 99.0 F 107 H 16 121/62 98 12/18/18 09:43 12/18/18 09:43 12/18/18 09:43 12/18/18 09:43 12/18/18 09:43
[2018-12-18 12:01] LABS: ABSOLUTE EOSINOPHILS # (AUTO) 0.1 10^3/uL (0.0-0.6); ABSOLUTE LYMPHOCYTES (AUTO) 2.1 10^3/uL (0.5-4.7); ABSOLUTE MONOCYTES (AUTO) 1.4 10^3/uL (0.1-1.4); ABSOLUTE NEUT (AUTO) 13.1 10^3/uL (1.7-8.2); BASOPHILS % (AUTO) 0.3 % (0-2); EOSINOPHILS % (AUTO) 0.9 % (0-6); HEMATOCRIT 43.4 % (37.9-51.0); LYMPHOCYTES % (AUTO) 12.5 % (13-45); MEAN CORPUSCULAR HGB CONC 34.6 g/dL (32.0-36.0); MEAN CORPUSCULAR VOLUME 90 fl (80-97); MONOCYTES % (AUTO) 8.2 % (3-13); PLATELET COUNT 397 10^3/uL (150-450); RED BLOOD COUNT 4.85 10^6/uL (4.35-5.55); SEGMENTED NEUTROPHILS % (AUTO) 78.1 % (42-78); TOTAL CELLS COUNTED % (AUTO) 100 %; WHITE BLOOD COUNT 16.8 10^3/uL (4.0-10.5)
[2018-12-18 12:07] LABS: INTERNATIONAL RATION (INR) 1.01; PROTHROMBIN TIME 13.8 SEC (11.4-15.4)
[2018-12-18 12:20] LABS: ALANINE AMINOTRANSFERASE 39 U/L (21-72); ALBUMIN 4.5 g/dL (3.5-5.0); ALKALINE PHOSPHATASE 96 U/L (38-126); ANION GAP 11 (5-19); ASPARTATE AMINO TRANSFERASE 48 U/L (17-59); BILIRUBIN,DIRECT 0.2 mg/dL (0.0-0.4); BILIRUBIN,TOTAL 1.4 mg/dL (0.2-1.3); BLOOD UREA NITROGEN 11 mg/dL (7-20); CALCIUM 10.4 mg/dL (8.4-10.2); CARBON DIOXIDE 28 mmol/L (22-30); CHLORIDE 99 mmol/L (98-107); GLUCOSE 97 mg/dL (75-110); POTASSIUM 4.7 mmol/L (3.6-5.0); TOTAL PROTEIN 7.3 g/dL (6.3-8.2)
[2018-12-18] MEDS ORDERED: MORPHINE SULFATE 10 MG/ML INJ IV ONE ×2 (14:27→16:53)
--- NOTE | 2018-12-18 14:36 | ER Document Report ---
ED General - General Chief Complaint: Abscess Stated Complaint: POSSIBLE ABSCESS Time Seen by Provider: 12/18/18 11:02 Primary Care Provider: HERMELINDA DANIELS MD [ACTIVE STAFF] - Follow up in 3-5 days Notes: Patient is a 28-year-old male that presents to the emergency department for chief complaint of left arm pain and swelling. Patient states he noticed a small pimple in his left axilla 2 days ago, he did try to luzma it himself at home with a needle, just got worse the next day and he had redness spread throu ghout his arm today so he decided come to the emergency department. He currently rates his pain as a 10 out of 10 describes as a constant throbbing and aching sensation in the left axilla. He denies having any fevers or chills, nausea or vomiting or chest pain. Past Medical History: Denies chronic medical conditions Past Surgical History: Appendectomy Social History: Admits to smoking cigarettes, and admits to marijuana use, denies alcohol use. Family History: Reviewed and noncontributory for presenting illness Allergies: Reviewed, see documented allergy list. REVIEW OF SYSTEMS: Other than noted above, the 12 point review of systems was reviewed with the patient and were negative, all pertinent findings are included in the HPI. PHYSICAL EXAMINATION: Vital signs reviewed, nursing noted reviewed. GENERAL: He is uncomfortable exam, no respiratory distress. HEAD: Atraumatic, normocephalic. EYES: Eyes appear normal, extraocular movements intact, sclera anicteric, conjunctiva are normal. ENT: nares patent, oropharynx clear without exudates. Moist mucous membranes. NECK: Normal range of motion, supple without lymphadenopathy LUNGS: Breath sounds clear to auscultation bilaterally and equal. No wheezes rales or rhonchi. HEART: Heart rate tachycardic, regular rhythm ABDOMEN: Soft, nontender, normoactive bowel sounds. No rebound, guarding, or rigidity. No masses appreciated. EXTREMITIES: In the left axilla, there is a fluctuant abscess, that has come to ahead, tender to palpate, with extensive cellulitis surrounding the abscess and distally to the elbow, tender to palpation. The rest the patient's extremity exam is grossly unremarkable, good range of motion, and nontender, Otherwise. NEUROLOGICAL: No focal neurological deficits. Moves all extremities spontane ously Motor and sensory grossly intact on exam. PSYCH: Normal mood, normal affect. SKIN: Warm, Dry, normal turgor, left upper extremity erythema extending from the axilla to the elbow TRAVEL OUTSIDE OF THE [place] IN LAST 30 DAYS: No - Related Data Allergies/Adverse Reactions: No Known Allergies Allergy (Verified 12/18/18 09:39) Past Medical History - Social History Smoking Status: Current Every Day Smoker Chew tobacco use (# tins/day): No Frequency of alcohol use: None Drug Abuse: Heroin Family History: Arthritis, COPD, CVA, DM, Malignancy, Thyroid Disfunction Patient has suicidal ideation: No Patient has homicidal ideation: No Renal/ Medical History: Denies: Hx Peritoneal Dialysis Musculoskeletal Medical History: Reports Hx Musculoskeletal Trauma Skin Medical History: Reports Hx Cellulitis, Reports Hx MRSA Traumatic Medical History: Reports: Hx Fractures Infectious Medical History: Reports: Hx MRSA Past Surgical History: Reports: Hx Appendectomy, Hx Orthopedic Surgery - Right hand - Immunizations Hx Diphtheria, Pertussis, Tetanus Vaccination: Yes Physical Exam - Vital signs Vitals: Temp Pulse Resp BP Pulse Ox 99.0 F 107 H 16 121/62 98 12/18/18 09:43 12/18/18 09:43 12/18/18 09:43 12/18/18 09:43 12/18/18 09:43 Course - Re-evaluation Re-evalutation: Patient seen and examined vital signs reviewed. Laboratory data and imaging were ordered as appropriate for the patient's presenting symptoms and complaint, with consideration of any critical or life threatening conditions that may be associated with their obtained history and exam as noted above. Patient was treated with IV fluids, given a dose of IV Zosyn and vancomycin ordered by triage provider, he was also given a dose of IV morphine and Toradol for his pain Results were reviewed when available and demonstrated leukocytosis, consistent with the patient's presentation of cellulitis associated with abscess, patient was given a dose of IV antibiotics as noted, and I&D performed as noted the abscess in his left axilla The patient was re-evaluated and was improved after I&D, and pain medications Evaluation was most consistent with left axillary abscess, with associated left upper extremity cellulitis Results were discussed with the patient at this point, after careful c onsideration I feel that that patient can be discharged from the emergency department, the patient was educated treatments and reasons to return to the emergency department based on their presumed diagnosis as noted above, they were advised to followup with a primary care physician in 2-3 days. Patient was agreeable to plan of care. *Note is created using voice recognition software and may contain spelling, syntax or grammatical errors. Laboratory 12/18/18 12/18/18 12/18/18 11:40 11:40 11:40 WBC 16.8 H RBC 4.85 Hgb 15.0 Hct 43.4 MCV 90 MCH 31.0 MCHC 34.6 RDW 13.0 Plt Count 397 Seg Neutrophils % 78.1 H Lymphocytes % 12.5 L Monocytes % 8.2 Eosinophils % 0.9 Basophils % 0.3 Absolute Neutrophils 13.1 H Absolute Lymphocytes 2.1 Absolute Monocytes 1.4 Absolute Eosinophils 0.1 Absolute Basophils 0.0 PT 13.8 INR 1.01 Sodium 138.0 Potassium 4.7 Chloride 99 Carbon Dioxide 28 Anion Gap 11 BUN 11 Creatinine 1.25 Est GFR ( Amer) > 60 Est GFR (Non-Af Amer) > 60 Glucose 97 Lactic Acid Calcium 10.4 H Total Bilirubin 1.4 H Direct Bilirubin 0.2 Neonat Total Bilirubin Not Reportable Neonat Direct Bilirubin Not Reportable Neonat Indirect Bili Not Reportable AST 48 ALT 39 Alkaline Phosphatase 96 Total Protein 7.3 Albumin 4.5 Urine Color Urine Appearance Urine pH Ur Specific Alexander Urine Protein Urine Glucose (UA) Urine Ketones Urine Blood Urine Nitrite Urine Bilirubin Urine Urobilinogen Ur Leukocyte Esterase Urine WBC (Auto) Squamous Epi Cells Auto Urine Mucus (Auto) Urine Ascorbic Acid 12/18/18 12/18/18 11:40 14:15 WBC RBC Hgb Hct MCV MCH MCHC RDW Plt Count Seg Neutrophils % Lymphocytes % Monocytes % Eosinophils % Basophils % Absolute Neutrophils Absolute Lymphocytes Absolute Monocytes Absolute Eosinophils Absolute Basophils PT INR Sodium Potassium Chloride Carbon Dioxide Anion Gap BUN Creatinine Est GFR ( Amer) Est GFR (Non-Af Amer) Glucose Lactic Acid 1.1 Calcium Total Bilirubin Direct Bilirubin Neonat Total Bilirubin Neonat Direct Bilirubin Neonat Indirect Bili AST ALT Alkaline Phosphatase Total Protein Albumin Urine Color YELLOW Urine Appearance CLEAR Urine pH 5.0 Ur Specific Alexander 1.009 Urine Protein NEGATIVE Urine Glucose (UA) NEGATIVE Urine Ketones NEGATIVE Urine Blood NEGATIVE Urine Nitrite NEGATIVE Urine Bilirubin NEGATIVE Urine Urobilinogen NEGATIVE Ur Leukocyte Esterase NEGATIVE Urine WBC (Auto) 1 Squamous Epi Cells Auto <1 Urine Mucus (Auto) RARE Urine Ascorbic Acid NEGATIVE - Vital Signs Vital signs: Temp Pulse Resp BP Pulse Ox 97.8 F 102 H 18 112/84 100 12/18/18 16:58 12/18/18 17:14 12/18/18 17:14 12/18/18 17:14 12/18/18 17:14 - Laboratory Result Diagrams: 12/18/18 11:40 12/18/18 11:40 Laboratory results interpreted by me: 12/18/18 12/18/18 11:40 11:40 WBC 16.8 H Seg Neutrophils % 78.1 H Lymphocytes % 12.5 L Absolute Neutrophils 13.1 H Calcium 10.4 H Total Bilirubin 1.4 H Procedures - Incision and Drainage Left Arm Type: Complex Anesthetic type: 1% Lidocaine mL's of anesthetic: 5 Blade size: 11 I&D procedure: Betadine prep applied, Sterile dressing applied Incision Method: Incision made by scalpel Amount/type of drainage: 8 Notes: Patient was prepped and draped in usual sterile fashion, was anesthetized with lidocaine as noted above, and using 11 blade scalpel, the abscess was incised, and copious amounts of purulent drainage were obtained, and sent for culture, condom swab was inserted and loculations were broken up, more drainage was removed and expelled from the abscess, it was then irrigated with saline, and pa tient tolerated well. Sterile dressing applied. Discharge - Discharge Clinical Impression: Abscess Cellulitis Qualifiers: Site of cellulitis: extremity Site of cellulitis of extremity: upper extremity Laterality: left Qualified Code(s): L03.114 - Cellulitis of left upper limb Condition: Stable Disposition: HOME, SELF-CARE Instructions: Post Incision and Drainage, Trimethoprim-Sulfa ([facility]) Additional Instructions: Please monitor for worsening redness, please take the antibiotics as prescribed and complete the entire course, please follow-up with the surgical clinic as well, their phone number has been listed with your paperwork. Prescriptions: RX: Cephalexin Monohydrate [Keflex 500 mg Capsule] 500 mg PO Q6H 10 Days #40 capsule Sulfamethoxazole/Trimethoprim [Bactrim Ds Tablet] 1 each PO BID #20 tablet RX: Tramadol HCl [Ultram] 50 mg PO Q6H PRN #15 tablet PRN Reason: arm pain Referrals: HERMELINDA DANIELS MD [ACTIVE STAFF] - Follow up in 3-5 days
[2018-12-18 14:40] LABS: APPEARANCE,URINE CLEAR; BILIRUBIN,URINE NEGATIVE (NEGATIVE); COLOR,URINE YELLOW; GLUCOSE, URINE NEGATIVE (NEGATIVE); KETONES,URINE NEGATIVE (NEGATIVE); LEUKOCYTE ESTERASE,URINE NEGATIVE (NEGATIVE); NITRITE,URINE NEGATIVE (NEGATIVE); PROTEIN,URINE NEGATIVE (NEGATIVE); URINE SPECIFIC GRAVITY 1.009; UROBILINOGEN,URINE NEGATIVE mg/dL (<2.0)
[2018-12-18] MEDS ORDERED: LIDOCAINE 1% INJ-PF (10 MG/ML) 30 ML SDV INJ ONE (15:21)
[2018-12-18 17:23] VITALS: BP 115/73
== END 2018-12-18 17:23 | disposition home or self-care (01) ==
LOC: ER 09:31
DX: L02.414 Cutaneous abscess of left upper limb (principal); F17.210 Nicotine dependence, cigarettes, uncomplicated
CPT/HCPCS: 10061; 96376; 99283; 96361; 96375; 96365; 96366; 96367; 36415; 87040; 87086; 87070; 87205; 85025; 85610; 87077; 80053; 81001; 87186; 83605; J1885; J2270; J2405; J7030; J3370; J2543

== ENCOUNTER 2018-12-21 12:46 | Emergency (ER) | payer SELFPAY ==
[2018-12-21 13:00] VITALS: BP 129/67
--- NOTE | 2018-12-21 13:25 | ER Document Report ---
ED Medical Screen (RME) - General Chief Complaint: Arm Pain Stated Complaint: ARM PAIN Time Seen by Provider: 12/21/18 13:24 Notes: Patient is here complaining of worsening infection in his left "armpit" and upper arm. He was seen here 3 days ago for the same condition and had an incision and drainage and was given IV antibiotics and sent home on Keflex and Bactroban. Patient says the arm is done nothing but get worse and is draining pus and is red all the way from the armpit to the elbow. He has multiple enlarged lymph nodes in the left axilla. TRAVEL OUTSIDE OF THE [place] IN LAST 30 DAYS: No - Related Data Allergies/Adverse Reactions: No Known Allergies Allergy (Verified 12/21/18 12:55) Past Medical History Renal/ Medical History: Denies: Hx Peritoneal Dialysis Musculoskeltal Medical History: Reports Hx Musculoskeletal Trauma Skin Medical History: Reports Hx Cellulitis, Reports Hx MRSA Traumatic Medical History: Reports: Hx Fractures Infectious Medical History: Reports: Hx MRSA Past Surgical History: Reports: Hx Appendectomy, Hx Orthopedic Surgery - Right hand - Immunizations Hx Diphtheria, Pertussis, Tetanus Vaccination: Yes Physical Exam - Vital signs Vitals: Temp Pulse Resp BP Pulse Ox 97.5 F 112 H 20 129/67 H 100 12/21/18 12:59 12/21/18 12:59 12/21/18 12:59 12/21/18 12:59 12/21/18 12:59 Course - Vital Signs Vital signs: Temp Pulse Resp BP Pulse Ox 97.5 F 112 H 20 129/67 H 100 12/21/18 12:59 12/21/18 12:59 12/21/18 12:59 12/21/18 12:59 12/21/18 12:59
== END 2018-12-21 14:18 | disposition left against medical advice (07) ==
LOC: ER 12:46
DX: Z53.21 Procedure and treatment not carried out due to patient leaving prior to being seen by health care provider (principal); M79.602 Pain in left arm

== ENCOUNTER 2018-12-21 21:16 | Observation (INO) | payer SELFPAY ==
[2018-12-22] MEDS ORDERED: OXYCODONE-ACETAMINOPHEN 5-325 MG TABLET PO ONE (01:18)
[2018-12-22] MEDS ORDERED: PROMETHAZINE HCL 25 MG TABLET PO ONE (01:18)
[2018-12-22] MEDS ORDERED: VANCOMYCIN HCL INJ 1000 MG VIAL IV ONE (01:19)
[2018-12-22] MEDS ORDERED: CEFTRIAXONE 1 GM/D5W RTU 1 GM/50 ML RTUPB IV ONE ×2 (01:19→04:30)
--- NOTE | 2018-12-22 01:21 | ER Document Report ---
ED Medical Screen (RME) - General Chief Complaint: Abscess Stated Complaint: ABCESS Time Seen by Provider: 12/22/18 01:18 Notes: 28-year-old male with chief complaint of pain and swelling with spreading redness in the left upper arm, seen about 3 days ago and had the area drained after he had attempted to luzma the area himself with a needle, he states that the area has continued to have purulent drainage that has not stopped, he has developed spreading redness towards the elbow with severe worsening pain. He denies fever or chills. Denies history of IV drug abuse. He states he was placed on antibiotic and he has been taking this as prescribed. TRAVEL OUTSIDE OF THE [place] IN LAST 30 DAYS: No - Related Data Allergies/Adverse Reactions: No Known Allergies Allergy (Verified 12/21/18 12:55) Past Medical History Renal/ Medical History: Denies: Hx Peritoneal Dialysis Musculoskeltal Medical History: Reports Hx Musculoskeletal Trauma Skin Medical History: Reports Hx Cellulitis, Reports Hx MRSA Traumatic Medical History: Reports: Hx Fractures Infectious Medical History: Reports: Hx MRSA Past Surgical History: Reports: Hx Appendectomy, Hx Orthopedic Surgery - Right hand - Immunizations Hx Diphtheria, Pertussis, Tetanus Vaccination: Yes Physical Exam - Vital signs Vitals: Temp Pulse Resp BP Pulse Ox 98.3 F 94 18 130/72 H 100 12/21/18 21:20 12/21/18 21:20 12/21/18 21:20 12/21/18 21:20 12/21/18 21:20 - Extremities Arm: Other - Draining abscess in the left medial arm with purulent drainage, there is surrounding erythema and soft tissue swelling with spreading erythema towards the elbow. Course - Vital Signs Vital signs: Temp Pulse Resp BP Pulse Ox 98.3 F 94 18 130/72 H 100 12/21/18 21:20 12/21/18 21:20 12/21/18 21:20 12/21/18 21:20 12/21/18 21:20
[2018-12-22 02:00] LABS: ABSOLUTE BASOPHILS # (AUTO) 0.1 10^3/uL (0.0-0.2); ABSOLUTE EOSINOPHILS # (AUTO) 0.2 10^3/uL (0.0-0.6); ABSOLUTE LYMPHOCYTES (AUTO) 3.2 10^3/uL (0.5-4.7); ABSOLUTE NEUT (AUTO) 5.6 10^3/uL (1.7-8.2); EOSINOPHILS % (AUTO) 2.1 % (0-6); HEMATOCRIT 40.5 % (37.9-51.0); HEMOGLOBIN 14.2 g/dL (13.5-17.0); LYMPHOCYTES % (AUTO) 31.5 % (13-45); MEAN CORPUSCULAR HEMOGLOBIN 31.3 pg (27.0-33.4); MEAN CORPUSCULAR VOLUME 89 fl (80-97); MONOCYTES % (AUTO) 9.6 % (3-13); PLATELET COUNT 496 10^3/uL (150-450); RED BLOOD COUNT 4.53 10^6/uL (4.35-5.55); RED CELL DISTRIBUTION WIDTH 13.2 % (11.5-14.0); SEGMENTED NEUTROPHILS % (AUTO) 55.8 % (42-78); TOTAL CELLS COUNTED % (AUTO) 100 %
[2018-12-22] MEDS ORDERED: MORPHINE SULFATE 10 MG/ML INJ IV ONE (04:04)
--- NOTE | 2018-12-22 04:37 | ER Document Report ---
ED General - General Chief Complaint: Abscess Stated Complaint: ABCESS Time Seen by Provider: 12/22/18 01:18 Notes: Patient is a 28-year-old male who presents with complaints of worsening cellulitis. He had a axillary abscess which was drained a few days ago here in the ER. Was placed on antibiotics. He says cellulitis is spread down his arm is now has swelling into the left upper arm. He has been taking antibiotics as prescribed. He denies any history of IV drug abuse. He does donate plasma with his left arm on a routine basis. Denies any fevers. No vomiting. No other complaints at this time. TRAVEL OUTSIDE OF THE [place] IN LAST 30 DAYS: No - Related Data Allergies/Adverse Reactions: No Known Allergies Allergy (Verified 12/21/18 12:55) Past Medical History - Social History Smoking Status: Unknown if Ever Smoked Frequency of alcohol use: None Drug Abuse: None Family History: Arthritis, COPD, CVA, DM, Malignancy, Thyroid Disfunction Renal/ Medical History: Denies: Hx Peritoneal Dialysis Musculoskeletal Medical History: Reports Hx Musculoskeletal Trauma Skin Medical History: Reports Hx Cellulitis, Reports Hx MRSA Traumatic Medical History: Reports: Hx Fractures Infectious Medical History: Reports: Hx MRSA Past Surgical History: Reports: Hx Appendectomy, Hx Orthopedic Surgery - Right hand - Immunizations Hx Diphtheria, Pertussis, Tetanus Vaccination: Yes Review of Systems - Review of Systems Notes: My Normal Review Basic REVIEW OF SYSTEMS: CONSTITUTIONAL : Denies fever, chills, or sweats. Denies recent illness. GASTROINTESTINAL: Denies abdominal pain. Denies nausea, vomiting, or diarrhea. MUSCULOSKELETAL: Recent axillary abscess SKIN: Redness on left arm. NEUROLOGICAL: Denies altered mental status or loss of consciousness. Denies headache. Denies weakness or paralysis or loss of use of either side. Denies problems with gait or speech. Denies sensory or motor loss. ALL OTHER SYSTEMS REVIEWED AND NEGATIVE. Physical Exam - Vital signs Vitals: Temp Pulse Resp BP Pulse Ox 98.3 F 94 18 130/72 H 100 12/21/18 21:20 12/21/18 21:20 12/21/18 21:20 12/21/18 21:20 12/21/18 21:20 - Notes Notes: General Appearance: Well nourished, alert, cooperative, no acute distress, moderate obvious discomfort. Vitals: reviewed, See vital signs table. Eyes: PERRL, EOMI, Conjuctiva clear Mouth: No decreasd moisture Lungs: No wheezing, No rales, No rhonci, No accessory muscle use, good air exchange bilaterally. Heart: Normal rate, Regular rythm, No murmur, no rub Extremities: Patient has still some purulent drainage coming from the incised abscess. He does have redness going down the arm with swelling along the medial aspect of the upper arm down to the elbow. No crepitus to palpation. Skin: warm, dry, appropriate color, no rash Neuro: speech clear, oriented x 3, normal affect, responds appropriately to questions. Course - Re-evaluation Re-evalutation: 12/22/18 05:50 CT scan does not show any evidence of further developing abscess. No evidence of dictation fasciitis. I do not suspect necrotizing fasciitis based on exam being the pain is not out of proportion to exam and has no crepitance. He does have worsening cellulitis despite being on outpatient antibiotics and therefore I think is appropriate to admit him. I did speak with the hospitalist, Dr. Crowder, who agrees to evaluate the patient for admission. Dictation of this chart was performed using voice recognition software; therefore, there may be some unintended grammatical errors. - Vital Signs Vital signs: Temp Pulse Resp BP Pulse Ox 98.0 F 79 15 110/62 100 12/22/18 05:18 12/22/18 05:18 12/22/18 05:18 12/22/18 05:18 12/22/18 05:18 - Laboratory Result Diagrams: 12/22/18 01:47 12/22/18 04:29 Laboratory results interpreted by me: 12/22/18 01:47 Plt Count 496 H Discharge - Discharge Clinical Impression: Cellulitis Qualifiers: Site of cellulitis: extremity Site of cellulitis of extremity: upper extremity Laterality: left Qualified Code(s): L03.114 - Cellulitis of left upper limb Condition: Stable Disposition: ADMITTED INPATIENT Admitting Provider: Hospitalist Unit Admitted: Medical Floor
[2018-12-22 04:55] LABS: ANION GAP 11 (5-19); BLOOD UREA NITROGEN 15 mg/dL (7-20); CALCIUM 9.4 mg/dL (8.4-10.2); CARBON DIOXIDE 25 mmol/L (22-30); CHLORIDE 103 mmol/L (98-107); GLUCOSE 99 mg/dL (75-110); POTASSIUM 3.6 mmol/L (3.6-5.0); SODIUM 139.1 mmol/L (137-145)
[2018-12-22] MEDS ORDERED: VANCOMYCIN HCL INJ 500 MG VIAL ONE (05:20)
--- NOTE | 2018-12-22 05:43 | RADIOLOGY REPORT (SQ) ---
EXAM DESCRIPTION: CT UPPER EXTREMITY WITH IV CONTRAST COMPLETED DATE/TME: 12/22/2018 04:03 CLINICAL HISTORY: Pain. 28 years Male, axillary abscess. cellulits down upper arm COMPARISON: Same day. Technique: IV contrast. Coronal and sagittal reformat. This exam was performed according to our departmental dose-optimization program, which includes automated exposure control, adjustment of the mA and/or kV according to patient size and/or use of iterative reconstruction technique. [facility]: Dose Right [facility]: CareDose [facility]: Dose Right [facility]: Teradose 4D [facility]: Tekmi LIMITATIONS: None Findings: Moderate subcutaneous soft tissue edema involves the subcutaneous left axilla and medial left upper arm in an area measuring 12 x 1 x 4 cm. There is moderate left axillary lymphadenopathy measuring up to 2.3 x 2.1 cm. No drainable abscess or fluid collection discerned. Bones, joints, and soft tissues of the CT UPPER EXTREMITY WITH IV CONTRAST appear otherwise intact. IMPRESSION: Moderate subcutaneous edema/cellulitis of the left upper extremity. Moderate left axillary lymphadenopathy. Differential etiologies include infectious, inflammatory, and neoplastic processes.
[2018-12-22] MEDS ORDERED: MAG HYDROX/AL HYDROX/SIMETH SUSP 30 ML UDCUP PO PRN (05:50)
[2018-12-22] MEDS ORDERED: OXYCODONE-ACETAMINOPHEN 5-325 MG TABLET PO PRN (05:50)
[2018-12-22] MEDS ORDERED: VANCOMYCIN HCL 0 MG in DEXTROSE 5%-WATER 250 ML IV NR (06:00)
[2018-12-22] MEDS ORDERED: NORMAL SALINE 1000 ML 1,000 ML IV PRN (06:00)
[2018-12-22] MEDS ORDERED: GLUCAGON,HUMAN RECOMB 1 MG INJ SUBCUT PRN (06:26)
[2018-12-22] MEDS ORDERED: DEXTROSE 40% GEL 15 GM TUBE PO PRN ×2 (06:26)
[2018-12-22] MEDS ORDERED: DEXTROSE 50%-WATER 25 GM/50 ML DISP.SYRIN IV PRN ×2 (06:26)
--- NOTE | 2018-12-22 06:26 | PDOC CONSULTATION ---
Consultation Consult Date: 12/22/18 Attending physician:: GWENDOLYN STRAUSS Consult reason:: Infection of left axilla History of Present Illness Admission Date/PCP: 12/22/18 05:56 History of Present Illness: ADEOLA FUENTES is a 28 year old male Presents to the emergency department via ground rescue complaining of persisting pain, swelling, drainage left axilla. Patient is several days status post I&D of left axillary abscess in the emergency department. He was sent home on p.o. antibiotics, returns last night complaining of the above symptoms. He was seen in the emergency department where he was found to have cellulitis; he had a CT scan of the left axilla which showed no karen abscess, but edema. Patient was admitted to the hospitalist service and surgery was consulted. At [address] Brantley, general surgeon, examined patient's left axilla and there was pus rolling out of the previous wound. Patient was kept n.p.o. and advised to undergo reoperative drainage procedure. Past Medical History Past Medical History: History of infections, trauma Infectious Medical History: Reports: Methicillin-Resistant Staph Aureus Past Surgical History Past Surgical History: Reports: Appendectomy, Orthopedic Surgery - Right hand Social History Information Source: Patient Smoking Status: Unknown if Ever Smoked Hx Recreational Drug Use: Yes Drugs: Marijuana Family History Family History: None, Arthritis, COPD, CVA, DM, Malignancy, Thyroid Disfunction Parental Family History Reviewed: Yes Children Family History Reviewed: Yes Sibling(s) Family History Reviewed.: Yes Medication/Allergy Home Medications: Benzonatate [Tessalon Perles 100 mg Capsule] 100 mg PO ASDIR PRN #40 capsule 03/10/18 Clindamycin HCl 300 mg PO QID #28 capsule 03/10/18 Hydrocodone/Acetaminophen [[place] 5-325 mg Tablet] 1 tab PO Q4HP PRN #20 tablet 03/10/18 Methocarbamol [Robaxin 750 mg Tablet] 750 mg PO ASDIR PRN #40 tablet 03/10/18 Cephalexin Monohydrate [Keflex 500 mg Capsule] 500 mg PO Q6H 10 Days #40 capsule 12/18/18 Sulfamethoxazole/Trimethoprim [Bactrim Ds Tablet] 1 each PO BID #20 tablet 12/18/18 Tramadol HCl [Ultram] 50 mg PO Q6H PRN #15 tablet 12/18/18 Allergies/Adverse Reactions: No Known Allergies Allergy (Verified 12/21/18 12:55) Review of Systems Constitutional: PRESENT: as per HPI Eyes: ABSENT: visual disturbances Ears: ABSENT: hearing changes Cardiovascular: ABSENT: chest pain, dyspnea on exertion, edema, orthropnea, palpitations Respiratory: ABSENT: cough, hemoptysis Gastrointestinal: ABSENT: abdominal pain, constipation, diarrhea, hematemesis, hematochezia, nausea, vomiting Genitourinary: ABSENT: dysuria, hematuria Physical Exam Vital Signs: Temp Pulse Resp BP Pulse Ox 98.0 F 79 15 110/62 100 12/22/18 05:18 12/22/18 05:18 12/22/18 05:18 12/22/18 05:18 12/22/18 05:18 Intake & Output 12/20/18 12/21/18 12/22/18 06:59 06:59 06:59 Intake Total 50 Balance 50 Weight 85.2 kg General appearance: PRESENT: no acute distress Head exam: PRESENT: normocephalic, other - Hearing left ear Eye exam: PRESENT: EOMI Mouth exam: PRESENT: dry mucosa Respiratory exam: PRESENT: clear to auscultation emily Cardiovascular exam: PRESENT: RRR GI/Abdominal exam: PRESENT: other - Erythema inferior aspect of left axilla tracking along arm; open wound lateral aspect of the axilla with active pus sixto ining. Rectal exam: PRESENT: deferred Musculoskeletal exam: PRESENT: ambulatory Neurological exam: PRESENT: awake, oriented to person, oriented to place Psychiatric exam: PRESENT: anxious Results Laboratory Results: 12/22/18 01:47 12/22/18 04:29 12/22/18 12/22/18 12/22/18 01:47 01:47 04:29 WBC 10.0 RBC 4.53 Hgb 14.2 Hct 40.5 MCV 89 MCH 31.3 MCHC 35.0 RDW 13.2 Plt Count 496 H Seg Neutrophils % 55.8 Lymphocytes % 31.5 Monocytes % 9.6 Eosinophils % 2.1 Basophils % 1.0 Absolute Neutrophils 5.6 Absolute Lymphocytes 3.2 Absolute Monocytes 1.0 Absolute Eosinophils 0.2 Absolute Basophils 0.1 Sodium Cancelled 139.1 Potassium Cancelled 3.6 Chloride Cancelled 103 Carbon Dioxide Cancelled 25 Anion Gap Cancelled 11 BUN Cancelled 15 Creatinine Cancelled 1.07 Est GFR ( Amer) Cancelled > 60 Est GFR (Non-Af Amer) Cancelled > 60 Glucose Cancelled 99 Calcium Cancelled 9.4 Impressions: Upper Extremity CT 12/22/18 04:03 IMPRESSION: Moderate subcutaneous edema/cellulitis of the left upper extremity. Moderate left axillary lymphadenopathy. Differential etiologies include infectious, inflammatory, and neoplastic processes. Clinical impression: Active persistent infection left axilla status post local I&D, in need of more aggressive drainage; personal history of MRSA. Recommendations: 1. Keep n.p.o. IV fluids and intravenous antibiotics 2. Set patient up for additional drainage procedure in the operating room, Dr. Saunders, surgical list for December 22.
--- NOTE | 2018-12-22 06:29 | PDOC H&P ---
History of Present Illness Admission Date/PCP: 12/22/18 05:56 Patient complains of: Left arm pain History of Present Illness: ADEOLA FUENTES is a 28 year old male without history with exception to left axilla, arm cellulitis. I&D was performed 3 days ago he was placed on empiric antibiotics without significant improvement. Cultures growing MRSA sensitive to clindamycin, vancomycin and Bactrim. He returns with swelling of his left arm with fever. CT reveals moderate subcutaneous edema and lymphadenopathy without obvious fluid collection. He is started on IV vancomycin and Rocephin then referred to the hospitalist for admission. Past Medical History Medical History: None Infectious Medical History: Reports: Methicillin-Resistant Staph Aureus Past Surgical History Past Surgical History: Reports: Appendectomy, Orthopedic Surgery - Right hand Social History Information Source: Patient Lives with: Family Smoking Status: Unknown if Ever Smoked Frequency of Alcohol Use: None Drugs: Marijuana - Advance Directive Resuscitation Status: Full Code Family History Family History: Arthritis, COPD, CVA, DM, Malignancy, Thyroid Disfunction Parental Family History Reviewed: Yes Children Family History Reviewed: Yes Sibling(s) Family History Reviewed.: Yes Medication/Allergy Home Medications: Benzonatate [Tessalon Perles 100 mg Capsule] 100 mg PO ASDIR PRN #40 capsule 03/10/18 Clindamycin HCl 300 mg PO QID #28 capsule 03/10/18 Hydrocodone/Acetaminophen [[place] 5-325 mg Tablet] 1 tab PO Q4HP PRN #20 tablet 03/10/18 Methocarbamol [Robaxin 750 mg Tablet] 750 mg PO ASDIR PRN #40 tablet 03/10/18 Cephalexin Monohydrate [Keflex 500 mg Capsule] 500 mg PO Q6H 10 Days #40 capsule 12/18/18 Sulfamethoxazole/Trimethoprim [Bactrim Ds Tablet] 1 each PO BID #20 tablet 12/18/18 Tramadol HCl [Ultram] 50 mg PO Q6H PRN #15 tablet 12/18/18 Allergies/Adverse Reactions: No Known Allergies Allergy (Verified 12/21/18 12:55) Review of Systems Constitutional: ABSENT: chills, fever(s), headache(s), weight gain, weight loss Eyes: ABSENT: visual disturbances Ears: ABSENT: hearing changes Cardiovascular: ABSENT: chest pain, dyspnea on exertion, edema, orthropnea, palpitations Respiratory: ABSENT: cough, hemoptysis Gastrointestinal: ABSENT: abdominal pain, constipation, diarrhea, hematemesis, hematochezia, nausea, vomiting Genitourinary: ABSENT: dysuria, hematuria Musculoskeletal: ABSENT: joint swelling Integumentary: ABSENT: rash, wounds Neurological: ABSENT: abnormal gait, abnormal speech, confusion, dizziness, foc al weakness, syncope Psychiatric: ABSENT: anxiety, depression, homidical ideation, suicidal ideation Endocrine: ABSENT: cold intolerance, heat intolerance, polydipsia, polyuria Hematologic/Lymphatic: ABSENT: easy bleeding, easy bruising Physical Exam Vital Signs: Temp Pulse Resp BP Pulse Ox 98.0 F 79 15 110/62 100 12/22/18 05:18 12/22/18 05:18 12/22/18 05:18 12/22/18 05:18 12/22/18 05:18 Intake & Output 12/20/18 12/21/18 12/22/18 11:59 11:59 11:59 Intake Total 50 Balance 50 Weight 85.2 kg General appearance: PRESENT: cooperative, mild distress. ABSENT: disheveled Head exam: PRESENT: atraumatic, normocephalic Eye exam: PRESENT: conjunctiva pink, EOMI, PERRLA. ABSENT: scleral icterus Ear exam: PRESENT: normal external ear exam Mouth exam: PRESENT: moist, tongue midline Neck exam: ABSENT: carotid bruit, JVD, lymphadenopathy, thyromegaly Respiratory exam: PRESENT: clear to auscultation emily. ABSENT: rales, rhonchi, wheezes Cardiovascular exam: PRESENT: RRR. ABSENT: diastolic murmur, rubs, systolic murmur Pulses: PRESENT: normal dorsalis pedis pul Vascular exam: PRESENT: normal capillary refill GI/Abdominal exam: PRESENT: normal bowel sounds, soft. ABSENT: distended, guarding, mass, organolmegaly, rebound, tenderness Torso Front/Back Image: 1 - Circumferential erythema edema and pain Rectal exam: PRESENT: deferred Results Laboratory Results: 12/22/18 01:47 12/22/18 04:29 12/22/18 12/22/1819 01:47 01:47 04:29 WBC 10.0 RBC 4.53 Hgb 14.2 Hct 40.5 MCV 89 MCH 31.3 MCHC 35.0 RDW 13.2 Plt Count 496 H Seg Neutrophils % 55.8 Lymphocytes % 31.5 Monocytes % 9.6 Eosinophils % 2.1 Basophils % 1.0 Absolute Neutrophils 5.6 Absolute Lymphocytes 3.2 Absolute Monocytes 1.0 Absolute Eosinophils 0.2 Absolute Basophils 0.1 Sodium Cancelled 139.1 Potassium Cancelled 3.6 Chloride Cancelled 103 Carbon Dioxide Cancelled 25 Anion Gap Cancelled 11 BUN Cancelled 15 Creatinine Cancelled 1.07 Est GFR ( Amer) Cancelled > 60 Est GFR (Non-Af Amer) Cancelled > 60 Glucose Cancelled 99 Calcium Cancelled 9.4 Impressions: Upper Extremity CT 12/22/18 04:03 IMPRESSION: Moderate subcutaneous edema/cellulitis of the left upper extremity. Moderate left axillary lymphadenopathy. Differential etiologies include infectious, inflammatory, and neoplastic processes. Assessment & Plan - Diagnosis (1) MRSA cellulitis Is this a current diagnosis for this admission?: Yes Plan: No evidence for fluid collection, IV vancomycin and Bactrim, follow-up culture and CBC. Consider surgical consult if not improved (2) Left arm pain Is this a current diagnosis for this admission?: Yes Plan: Secondary to #1, symptom medic management. - Time Time Spent: 30 to 50 Minutes
[2018-12-22] MEDS ORDERED: SULFAMETHOXAZOLE/TRIMETHOPRIM 480 MG in DEXTROSE 5%-WATER 1000 ML 750 ML IV SCH (06:30)
[2018-12-22] MEDS: HEPARIN SOD (PORCINE) 5,000 UNIT/ML 1 ML SYRINGE SUBCUT SCH ×3 (06:31→21:27)
[2018-12-22] MEDS ORDERED: SULFAMETHOXAZOLE/TRIMETHOPRIM 480 MG in DEXTROSE 5%-WATER 1000 ML 750 ML IV ONE (07:00)
[2018-12-22] MEDS ORDERED: SULFAMETHOX/TRIMETH 800-160 MG/10 ML VIAL IV PRN (07:22)
[2018-12-22] MEDS ORDERED: DIPHENHYDRAMINE HCL 50 MG/ML VIAL IV PRN (12:25)
[2018-12-22] MEDS ORDERED: MEPERIDINE HCL/PF INJ 25 MG/1 ML DISP.SYRIN IV PRN (12:25)
[2018-12-22] MEDS ORDERED: MORPHINE SULFATE 10 MG/ML INJ IV PRN (12:25)
[2018-12-22] MEDS ORDERED: LABETALOL HCL INJ 20 MG/4 ML DISP.SYRIN IV PRN (12:25)
[2018-12-22] MEDS ORDERED: PROMETHAZINE HCL INJ 25 MG/1 ML VIAL IV PRN (12:25)
[2018-12-22] MEDS ORDERED: FENTANYL CITRATE INJ/PF 100 MCG/2 ML AMPUL IV PRN ×3 (12:25)
[2018-12-22] MEDS ORDERED: HYDROMORPHONE HCL INJ/PF 2 MG/ML AMPULE ONE (13:02)
[2018-12-22] MEDS ORDERED: ONDANSETRON HCL INJ/PF 4 MG/2 ML SDV ONE (13:03)
[2018-12-22] MEDS ORDERED: FENTANYL CITRATE INJ/PF 100 MCG/2 ML AMPUL ONE (13:03)
[2018-12-22] MEDS ORDERED: MIDAZOLAM 2 MG/2 ML INJ ONE (13:03)
[2018-12-22] MEDS ORDERED: PROPOFOL INJ 200 MG/20 ML VIAL IV ONE (13:04)
[2018-12-22] MEDS ORDERED: LIDOCAINE 0.5% INJ-PF (5 MG/ML) 50 ML SDV ONE (13:13)
--- NOTE | 2018-12-22 14:04 | Progress Note ---
Provider Note Provider Note: ID Consult Note Asked to review patient's chart by Cammy Nicholson NP. Pt not seen or examined. Pt is a 28 year old man admitted today 12/22/18 with L axilla/LUE cellulitis. He presented to the ED on 12/18, had I&D performed, blood cultures drawn (negative), and culture from the abscess sent (grew MRSA, susceptible to vancomycin, clindamycin, TMP/SMX, tetracycline). He was discharged on Keflex 500 q6h and Septra 1 DS BID. He returned because of swelling of the L arm has worsened and subjective fever. He was appreciated on exam in the ED to have some purulent drainage from the incised abscess and to have circumferential erythema, edema and pain involving the LUE with no crepitus. CT of the arm showed subcutaneous soft tissue edema involving L axilla and medial LUE and moderate L axillary LAD. Surgery was consulted considering the lack of improvement in medical management. Pt was made NPO pending additional drainage procedure. Pt is getting IV vancomycin. Operative notepending. BCx pending. Operative cx pending. Impression/Recommendations MRSA soft tissue infection involving LUE. Continue IV vancomycin pending results of I&D. Doubt that this was an antimicrobial failure per se. The most important intervention for an organized collection of pus is drainage/debridement. The infection may have required surgical intervention, which is taking place today. If the blood cultures are negative and the culture from the I&D only shows growth of MRSA, I anticipate the patient could be discharged on Bactrim 2 DS BID PO x 7 days. Duration of therapy would have to take into account clinical response and could be a few days shorter or longer than this. Clindamycin and doxycycline are alternatives. Nemesio Farrell MD [facility] Infectious Diseases pager [phone]
[2018-12-22] MEDS: FENTANYL CITRATE INJ/PF 100 MCG/2 ML AMPUL ONE ×2 (14:13→14:18)
[2018-12-22] MEDS ORDERED: OXYCODONE-ACETAMINOPHEN 5-325 MG TABLET ONE (14:37)
--- NOTE | 2018-12-22 15:13 | OPERATIVE REPORT E ---
Operative Report NAME: ADEOLA FUENTES : 1990 AGE: 28Y DATE OF SURGERY: 12/22/2018 ROOM: ED16 PREOPERATIVE DIAGNOSIS: ABSCESS OF THE LEFT AXILLA. POSTOPERATIVE DIAGNOSIS: ABSCESS OF THE LEFT AXILLA. OPERATION: INCISION AND DRAINAGE OF ABSCESS LEFT AXILLA. SURGEON: KISHOR VANEGAS M.D. ANESTHESIA: General. INDICATION: This is a 28-year-old male complaining of pain along the left axilla for the past 4 days. Three days ago, he went to the ED where it was drained. Unfortunately, the patient continued to have more swelling and redness and pain in the left axilla and needed more definitive incision and drainage. PROCEDURE: After adequate general anesthesia, the patient was placed in supine position with the left arm extended. The left axilla was subsequently prepped and draped in the usual sterile fashion. Appropriate timeout was then called. Next, the initial small I and D site was then probed and it was noted to be going distally and across the axilla toward the area of the pectoralis groove. The initial incision was extended medially to a distance of 2.5 cm and a counter incision made across the tunnel toward the pectoralis groove, making about a 2 cm incision vertically. Cultures were earlier obtained. Hemostasis obtained with cautery, primarily from bleeding on the dermis and subcu sites. The cavity was then pulse lavaged with a liter of saline. The area was subsequently packed with 1/2 inch Iodoform gauze using at least half of the bottle. 4 x 4 and ABD pads were placed over the incision site and tape to the skin. The patient tolerated the procedure well. Needle, instrument, and sponge count were all correct. Estimated blood loss about 50 mL. The patient was extubated and brought to the recovery room in satisfactory condition. DICTATING PHYSICIAN: KISHOR VANEGAS M.D. [id number] PHY#: [id number] ID: [id number] JOB#: [id number] ACCT: [id number] cc:KISHOR VANEGAS M.D. >
[2018-12-22] MEDS: OXYCODONE-ACETAMINOPHEN 5-325 MG TABLET PO PRN ×2 (15:21→21:18)
[2018-12-22] MEDS: VANCOMYCIN HCL 1,000 MG in DEXTROSE 5%-WATER 250 ML IV SCH ×2 (15:29→21:19)
[2018-12-22] MEDS: KETOROLAC TROMETHAMINE INJ/PF 30 MG/1 ML SDV IV PRN (16:27)
--- NOTE | 2018-12-22 17:09 | PDOC PROGRESS REPORT ---
Subjective Progress Note for:: 12/22/18 Subjective:: ADEOLA FUENTES is a 28 year old male who denies significant past medical history, though likely has a hx of substance abuse in consideration of previously prescribed subutex, who was admitted 12/22/18 for recurrent cellulitis to the left arm and axilla following I&D and oral antibiotics. The patient was seen on morning rounds while still in the emergency department he was found resting comfortably on room air. He was sleeping when I entered the room, but did wake easily after I said his name. He reports continued pain and asks for an increase in his pain medication. He does report that he has chronic pain which he utilizes oxycodone 10 mg intermittently, but at least once daily. Of note, review of the [place] controlled database was reviewed and the patient is not regularly prescribed narcotics. However, it does appear that he was on Subutex through January 2018. Otherwise, he denies fever, chills, body aches, chest pain, palpitations, dyspnea, abdominal pain, nausea vomiting and diarrhea. He has no other questions or concerns. No concerns per nursing; scheduled for surgical I&D in the OR at [address] Saunders. Reason For Visit: AXILLARY CELLULITIS,HIDRADENITIS Physical Exam Vital Signs: Temp Pulse Resp BP Pulse Ox 98.2 F 80 17 120/56 L 98 12/22/18 11:01 12/22/18 11:01 12/22/18 11:01 12/22/18 11:01 12/22/18 11:01 Intake & Output 12/21/18 12/22/18 12/23/18 06:59 06:59 06:59 Intake Total 97 Balance 97 Weight 85.2 kg General appearance: PRESENT: no acute distress, well-developed, well-nourished Head exam: PRESENT: atraumatic, normocephalic Eye exam: PRESENT: conjunctiva pink, EOMI, PERRLA. ABSENT: scleral icterus Mouth exam: PRESENT: moist, tongue midline Respiratory exam: PRESENT: clear to auscultation emily, symmetrical, unlabored. ABSENT: rales, rhonchi, wheezes Cardiovascular exam: PRESENT: RRR. ABSENT: diastolic murmur, rubs, systolic murmur Vascular exam: PRESENT: normal capillary refill Rectal exam: PRESENT: deferred Extremities exam: PRESENT: full ROM. ABSENT: calf tenderness, clubbing, pedal edema Neurological exam: PRESENT: alert, awake, oriented to person, oriented to place, oriented to time, oriented to situation, CN II-XII grossly intact. ABSENT: motor sensory deficit Psychiatric exam: PRESENT: flat affect, normal mood. ABSENT: homicidal ideation, suicidal ideation Skin exam: PRESENT: dry, erythema - Circumferential erythema and edema to right upper extremity, warm. ABSENT: cyanosis, rash Results Laboratory Results: 12/22/18 01:47 12/22/18 04:29 12/22/18 12/22/18 12/22/18 01:47 01:47 04:29 WBC 10.0 RBC 4.53 Hgb 14.2 Hct 40.5 MCV 89 MCH 31.3 MCHC 35.0 RDW 13.2 Plt Count 496 H Seg Neutrophils % 55.8 Lymphocytes % 31.5 Monocytes % 9.6 Eosinophils % 2.1 Basophils % 1.0 Absolute Neutrophils 5.6 Absolute Lymphocytes 3.2 Absolute Monocytes 1.0 Absolute Eosinophils 0.2 Absolute Basophils 0.1 Sodium Cancelled 139.1 Potassium Cancelled 3.6 Chloride Cancelled 103 Carbon Dioxide Cancelled 25 Anion Gap Cancelled 11 BUN Cancelled 15 Creatinine Cancelled 1.07 Est GFR ( Amer) Cancelled > 60 Est GFR (Non-Af Amer) Cancelled > 60 Glucose Cancelled 99 Calcium Cancelled 9.4 Impressions: Upper Extremity CT 12/22/18 04:03 IMPRESSION: Moderate subcutaneous edema/cellulitis of the left upper extremity. Moderate left axillary lymphadenopathy. Differential etiologies include infectious, inflammatory, and neoplastic processes. Assessment & Plan - Diagnosis (1) MRSA cellulitis Is this a current diagnosis for this admission?: Yes Plan: Now status post surgical I&D in the OR by Dr. Saunders. Wound and blood cultures are pending. Wound care per surgery's expertise. Continue IV vancomycin until cultures result; will adjust antibiotics pending sensitivities. Infectious disease has been consulted; recommends Bactrim DS twice daily times 7 days at discharge. (2) Left arm pain Is this a current diagnosis for this admission?: Yes Plan: Secondary to #1. Analgesics as needed; oxycodone/APAP 5 mg every 4 hours as needed. Tramadol 50 mg every 6 hours. Elevate extremity as able. (3) History of substance abuse Is this a current diagnosis for this admission?: Yes Plan: Past medical history: ([facility] reviewed) reveals accidental heroin overdose. [place] controlled substance database shows that he was regularly prescribed Subutex until January 2018. Pain medication regimen is currently Percocet 5 mg every 4 hours as needed for pain. Will avoid IV analgesics and limit narcotic prescriptions at discharge. - Time Time Spent with patient: Less than 15 minutes Medications reviewed and adjusted accordingly: Yes Anticipated discharge: Home Within: within 48 hours - Inpatient Certification Based on my medical assessment, after consideration of the patient's comorbidities, presenting symptoms, or acuity I expect that the services needed warrant INPATIENT care.: Yes I certify that my determination is in accordance with my understanding of Medicare's requirements for reasonable and necessary INPATIENT services [42 CFR 412.3e].: Yes Medical Necessity: Need for IV Antibiotics, Need for Surgery
[2018-12-22] MEDS: TRAMADOL HCL 50 MG TABLET PO PRN (20:01)
[2018-12-22] MEDS ORDERED: CEFTRIAXONE 1 GM/D5W RTU 1 GM/50 ML RTUPB IV SCH (22:00)
[2018-12-23] MEDS: KETOROLAC TROMETHAMINE INJ/PF 30 MG/1 ML SDV IV PRN ×2 (00:04→19:06)
[2018-12-23] MEDS: HEPARIN SOD (PORCINE) 5,000 UNIT/ML 1 ML SYRINGE SUBCUT SCH ×3 (05:21→22:44)
[2018-12-23] MEDS: OXYCODONE-ACETAMINOPHEN 5-325 MG TABLET PO PRN ×4 (06:06→20:11)
[2018-12-23] MEDS: VANCOMYCIN HCL 1,000 MG in DEXTROSE 5%-WATER 250 ML IV SCH ×3 (06:06→22:50)
[2018-12-23 06:49] LABS: ABSOLUTE BASOPHILS # (AUTO) 0.1 10^3/uL (0.0-0.2); ABSOLUTE EOSINOPHILS # (AUTO) 0.1 10^3/uL (0.0-0.6); ABSOLUTE LYMPHOCYTES (AUTO) 2.9 10^3/uL (0.5-4.7); ABSOLUTE MONOCYTES (AUTO) 0.7 10^3/uL (0.1-1.4); ABSOLUTE NEUT (AUTO) 3.4 10^3/uL (1.7-8.2); BASOPHILS % (AUTO) 1.1 % (0-2); EOSINOPHILS % (AUTO) 1.8 % (0-6); HEMOGLOBIN 12.6 g/dL (13.5-17.0); LYMPHOCYTES % (AUTO) 40.9 % (13-45); MEAN CORPUSCULAR HEMOGLOBIN 30.8 pg (27.0-33.4); MEAN CORPUSCULAR VOLUME 88 fl (80-97); MONOCYTES % (AUTO) 9.1 % (3-13); PLATELET COUNT 356 10^3/uL (150-450); RED BLOOD COUNT 4.09 10^6/uL (4.35-5.55); RED CELL DISTRIBUTION WIDTH 13.1 % (11.5-14.0); SEGMENTED NEUTROPHILS % (AUTO) 47.1 % (42-78); TOTAL CELLS COUNTED % (AUTO) 100 %; WHITE BLOOD COUNT 7.2 10^3/uL (4.0-10.5)
[2018-12-23 07:11] LABS: VANCOMYCIN,TROUGH 9.8 ug/mL (5.0-20.0)
[2018-12-23] MEDS: TRAMADOL HCL 50 MG TABLET PO PRN (14:09)
[2018-12-23 22:35] LABS: VANCOMYCIN,TROUGH 10.8 ug/mL (5.0-20.0)
--- NOTE | 2018-12-23 22:51 | PDOC PROGRESS REPORT ---
Subjective Progress Note for:: 12/23/18 Subjective:: ADEOLA FUENTES is a 28 year old male who denies significant past medical history, though likely has a hx of substance abuse in consideration of previously prescribed subutex, who was admitted 12/22/18 for recurrent cellulitis to the left arm and axilla following I&D and oral antibiotics. The patient is now s/p I&D of the abscess by surgery. Afebrile. Nontoxic appeari ng. Awaiting final C&S of wound culture. Plan to d/c home in 24-48 hours Reason For Visit: AXILLARY CELLULITIS,HIDRADENITIS Physical Exam Vital Signs: Temp Pulse Resp BP Pulse Ox 97.8 F 88 16 121/65 99 12/23/18 21:14 12/23/18 21:14 12/23/18 21:14 12/23/18 21:14 12/23/18 21:14 Intake & Output 12/22/18 12/23/18 12/24/18 06:59 06:59 06:59 Intake Total 97 4953 736 Output Total 2050 Balance 97 2903 736 Weight 85.2 kg 74.9 kg General appearance: PRESENT: no acute distress, well-developed, well-nourished Head exam: PRESENT: atraumatic, normocephalic Eye exam: PRESENT: conjunctiva pink, EOMI, PERRLA. ABSENT: scleral icterus Ear exam: PRESENT: normal external ear exam Mouth exam: PRESENT: moist, tongue midline Teeth exam: PRESENT: poor dentation Neck exam: ABSENT: carotid bruit, JVD, lymphadenopathy, thyromegaly Respiratory exam: PRESENT: clear to auscultation emily. ABSENT: rales, rhonchi, wheezes Cardiovascular exam: PRESENT: RRR. ABSENT: diastolic murmur, rubs, systolic murmur Pulses: PRESENT: normal dorsalis pedis pul Vascular exam: PRESENT: normal capillary refill GI/Abdominal exam: PRESENT: normal bowel sounds, soft. ABSENT: distended, guard ing, mass, organolmegaly, rebound, tenderness Rectal exam: PRESENT: deferred Extremities exam: PRESENT: full ROM. ABSENT: calf tenderness, clubbing, pedal edema Neurological exam: PRESENT: alert, awake, oriented to person, oriented to place, oriented to time, oriented to situation. ABSENT: motor sensory deficit Psychiatric exam: PRESENT: appropriate affect, suicidal ideation - TO THE AFFECTED AREA - L AXILLA Skin exam: PRESENT: dry, intact, warm. ABSENT: cyanosis, rash Results Laboratory Results: 12/23/18 05:46 12/23/18 05:46 12/23/18 12/23/18 05:46 05:46 WBC 7.2 RBC 4.09 L Hgb 12.6 L Hct 36.0 L MCV 88 MCH 30.8 MCHC 35.0 RDW 13.1 Plt Count 356 Seg Neutrophils % 47.1 Lymphocytes % 40.9 Monocytes % 9.1 Eosinophils % 1.8 Basophils % 1.1 Absolute Neutrophils 3.4 Absolute Lymphocytes 2.9 Absolute Monocytes 0.7 Absolute Eosinophils 0.1 Absolute Basophils 0.1 Creatinine 1.17 Est GFR ( Amer) > 60 Est GFR (Non-Af Amer) > 60 Impressions: Upper Extremity CT 12/22/18 04:03 IMPRESSION: Moderate subcutaneous edema/cellulitis of the left upper extremity. Moderate left axillary lymphadenopathy. Differential etiologies include infectious, inflammatory, and neoplastic processes. Status: Imported from PACS Assessment and Plan - Diagnosis (1) Cellulitis Qualifiers: Site of cellulitis: extremity Site of cellulitis of extremity: upper e xtremity Laterality: left Qualified Code(s): L03.114 - Cellulitis of left upper limb Is this a current diagnosis for this admission?: Yes Plan: (+) mrsa Now status post surgical I&D in the OR by Dr. Saunders. Wound and blood cultures are pending. Wound care per surgery's expertise. Continue IV vancomycin until cultures result; will adjust antibiotics pending sensitivities. Infectious disease has been consulted; recommends Bactrim DS twice daily times 7 days at discharge. 12/23/18 22:49 (2) Left arm pain Is this a current diagnosis for this admission?: Yes Plan: Secondary to #1. Analgesics as needed; oxycodone/APAP 5 mg every 4 hours as needed. Tramadol 50 mg every 6 hours. Elevate extremity as able. (3) History of substance abuse Is this a current diagnosis for this admission?: Yes Plan: Past medical history: ([employer] reviewed) reveals accidental heroin overdose. [place] controlled substance database shows that he was regularly prescribed Subutex until January 2018. Pain medication regimen is currently Percocet 5 mg every 4 hours as needed for pain. Will avoid IV analgesics and limit narcotic prescriptions at discharge. - Time Time Spent with patient: 15-24 minutes Medications reviewed and adjusted accordingly: Yes Anticipated discharge: Home - Inpatient Certification Based on my medical assessment, after consideration of the patient's comorbidities, presenting symptoms, or acuity I expect that the services needed warrant INPATIENT care.: Yes I certify that my determination is in accordance with my understanding of Medicare's requirements for reasonable and necessary INPATIENT services [42 CFR 412.3e].: Yes Medical Necessity: Need for IV Antibiotics
--- NOTE | 2018-12-23 23:40 | PDOC PROGRESS REPORT ---
Subjective Progress Note for:: 12/23/18 Subjective:: pains left axilla and arm but less than pre-op Reason For Visit: AXILLARY CELLULITIS,HIDRADENITIS Physical Exam Vital Signs: Temp Pulse Resp BP Pulse Ox 97.8 F 88 16 121/65 99 12/23/18 21:14 12/23/18 21:14 12/23/18 21:14 12/23/18 21:14 12/23/18 21:14 Intake & Output 12/22/18 12/23/18 12/24/18 06:59 06:59 06:59 Intake Total 97 4953 736 Output Total 2050 Balance 97 2903 736 Weight 85.2 kg 74.9 kg Exam: Left arm swelling and erythema markedly improved. Packing removed and I&D sites look dry. Wounds not repacked. Results Laboratory Results: 12/23/18 05:46 12/23/18 05:46 12/23/18 12/23/18 05:46 05:46 WBC 7.2 RBC 4.09 L Hgb 12.6 L Hct 36.0 L MCV 88 MCH 30.8 MCHC 35.0 RDW 13.1 Plt Count 356 Seg Neutrophils % 47.1 Lymphocytes % 40.9 Monocytes % 9.1 Eosinophils % 1.8 Basophils % 1.1 Absolute Neutrophils 3.4 Absolute Lymphocytes 2.9 Absolute Monocytes 0.7 Absolute Eosinophils 0.1 Absolute Basophils 0.1 Creatinine 1.17 Est GFR ( Amer) > 60 Est GFR (Non-Af Amer) > 60 Impressions: Upper Extremity CT 12/22/18 04:03 IMPRESSION: Moderate subcutaneous edema/cellulitis of the left upper extremity. Moderate left axillary lymphadenopathy. Differential etiologies include infectious, inflammatory, and neoplastic processes. Assessment & Plan - Time Time Spent with patient: 15-24 minutes - Plan Summary Plan Summary: Continue IV antibiotics . OK to dischrge in 24 hrs. OK to give Clinda until o fficial C/S results are back We can follow in surgical clinic in 1-2 weeks
[2018-12-24] MEDS: OXYCODONE-ACETAMINOPHEN 5-325 MG TABLET PO PRN ×3 (00:17→11:57)
[2018-12-24] MEDS: HEPARIN SOD (PORCINE) 5,000 UNIT/ML 1 ML SYRINGE SUBCUT SCH (05:27)
[2018-12-24] MEDS: VANCOMYCIN HCL 1,000 MG in DEXTROSE 5%-WATER 250 ML IV SCH (05:30)
[2018-12-24 06:08] LABS: HEMATOCRIT 37.4 % (37.9-51.0); HEMOGLOBIN 12.9 g/dL (13.5-17.0); MEAN CORPUSCULAR HEMOGLOBIN 30.3 pg (27.0-33.4); MEAN CORPUSCULAR HGB CONC 34.4 g/dL (32.0-36.0); MEAN CORPUSCULAR VOLUME 88 fl (80-97); PLATELET COUNT 436 10^3/uL (150-450); RED BLOOD COUNT 4.26 10^6/uL (4.35-5.55); WHITE BLOOD COUNT 8.1 10^3/uL (4.0-10.5)
[2018-12-24 06:32] LABS: ALANINE AMINOTRANSFERASE 89 U/L (21-72); ALBUMIN 3.2 g/dL (3.5-5.0); ALKALINE PHOSPHATASE 86 U/L (38-126); ANION GAP 13 (5-19); ASPARTATE AMINO TRANSFERASE 26 U/L (17-59); BILIRUBIN,DIRECT 0.3 mg/dL (0.0-0.4); BILIRUBIN,TOTAL 0.4 mg/dL (0.2-1.3); BLOOD UREA NITROGEN 16 mg/dL (7-20); CALCIUM 9.6 mg/dL (8.4-10.2); CARBON DIOXIDE 23 mmol/L (22-30); CHLORIDE 105 mmol/L (98-107); GLUCOSE 98 mg/dL (75-110); POTASSIUM 3.6 mmol/L (3.6-5.0); SODIUM 140.7 mmol/L (137-145)
[2018-12-24] MEDS: KETOROLAC TROMETHAMINE INJ/PF 30 MG/1 ML SDV IV PRN (09:17)
[2018-12-24 12:37] VITALS: BP 131/70
[2018-12-24] MEDS ORDERED: VANCOMYCIN HCL 1,250 MG in DEXTROSE 5%-WATER 250 ML IV SCH (14:00)
--- NOTE | 2019-01-05 11:36 | PDOC DISCHARGE SUMMARY ---
General - Admit/Disc Date/PCP Admission Date/Primary Care Provider: 12/22/18 05:56 Discharge Date: 12/24/18 - Discharge Diagnosis (1) Cellulitis Is this a current diagnosis for this admission?: Yes (2) Left arm pain Is this a current diagnosis for this admission?: Yes (3) History of substance abuse Is this a current diagnosis for this admission?: Yes - Additional Information Resuscitation Status: Full Code Discharge Diet: As Tolerated Discharge Activity: Activity As Tolerated Prescriptions: Sulfamethoxazole/Trimethoprim [Bactrim Ds Tablet] 1 each PO BID #14 tablet Home Medications: Sulfamethoxazole/Trimethoprim [Bactrim Ds Tablet] 1 each PO BID #14 tablet 12/24/18 History of Present Illness History of Present Illness: ADEOLA FUENTES is a 28 year old male without history with exception to left axilla, arm cellulitis. I&D was performed 3 days ago he was placed on empiric antibiotics without significant improvement. Cultures growing MRSA sensitive to clindamycin, vancomycin and Bactrim. He returns with swelling of his left arm with fever. CT reveals moderate subcutaneous edema and lymphadenopathy without obvious fluid collection. He is started on IV vancomycin and Rocephin then referred to the hospitalist for admission. Hospital Course Hospital Course: ADEOLA FUENTES is a 28 year old male who denies significant past medical history, though likely has a hx of substance abuse in consideration of previously prescribed subutex and heroin overdose, who was admitted 3 for recurrent cellulitis to the left arm and axilla following I&D and oral antibiotics. CT LUE revealed cellulitis and lympadenopathy, but no obvious fluid collection. The patient was admitted to the hospitalist service and started on IV vancomycin and Rocephin. It is unclear if the patient was compliant with his outpatient antibiotic regimen. A repeat I&D was preformed at the L axilla site during this hospitalization. Repeat wound cultures (+) MRSA. The patient was transitioned from IV Vancomycin/Rocephin to Bactrim. ID was consulted regarding antibiotic duration, Dr. Farrell recommended PO Bactrim DS for 7 days. On hospital day #3 the patient was discharged with a prescription for Bactrim to treat his MRSA cellulitis. Unfortunately, the patient's past medical history ([facility] reviewed) revealed an accidental heroin overdose. [place] controlled substance database shows that he was regularly prescribed Subutex until January 2018. This patient was not sent home with pain medication. He was advised to follow up with the wound care clinic and to use tylenol or Mortin for pain control. Physical Exam Vital Signs: Temp Pulse Resp BP Pulse Ox 98.1 F 81 18 131/70 H 100 12/24/18 12:35 12/24/18 12:35 12/24/18 12:35 12/24/18 12:35 12/24/18 12:35 General appearance: PRESENT: no acute distress, well-developed, well-nourished Head exam: PRESENT: atraumatic, normocephalic Eye exam: PRESENT: conjunctiva pink, EOMI, PERRLA. ABSENT: scleral icterus Ear exam: PRESENT: normal external ear exam Mouth exam: PRESENT: moist, tongue midline Neck exam: ABSENT: carotid bruit, JVD, lymphadenopathy, thyromegaly Respiratory exam: PRESENT: clear to auscultation emily. ABSENT: rales, rhonchi, wheezes Cardiovascular exam: PRESENT: RRR. ABSENT: diastolic murmur, rubs, systolic murmur Pulses: PRESENT: normal dorsalis pedis pul Vascular exam: PRESENT: normal capillary refill GI/Abdominal exam: PRESENT: normal bowel sounds, soft. ABSENT: distended, guarding, mass, organolmegaly, rebound, tenderness Rectal exam: PRESENT: deferred Extremities exam: PRESENT: full ROM. ABSENT: calf tenderness, clubbing, pedal edema Neurological exam: PRESENT: alert, awake, oriented to person, oriented to place, oriented to time, oriented to situation, CN II-XII grossly intact. ABSENT: m otor sensory deficit Psychiatric exam: PRESENT: appropriate affect, normal mood. ABSENT: homicidal ideation, suicidal ideation Skin exam: PRESENT: dry, intact, warm, other - SURGICAL I&D SITE L AXILLA. DRESSING IS C/D/I. ABSENT: cyanosis, rash Results Laboratory Results: 12/24/18 04:49 12/24/18 04:49 Impressions: Upper Extremity CT 12/22/18 04:03 IMPRESSION: Moderate subcutaneous edema/cellulitis of the left upper extremity. Moderate left axillary lymphadenopathy. Differential etiologies include infectious, inflammatory, and neoplastic processes. Status: Imported from PACS Qualifiers - * PATIENT BEING DISCHARGED WITH ANY OF THE FOLLOWING DIAGNOSIS: No
== END 2018-12-24 13:14 | disposition home or self-care (01) ==
LOC: ER 21:16 → INTOOBSV 12-22 05:56 → EH 12-22 05:56 → 4N 12-22 15:04
PROVIDERS: ADMIT Internal Medicine; ATTEND Internal Medicine
PROC: 0J9F0ZZ Drainage of Left Upper Arm Subcutaneous Tissue and Fascia, Open Approach (ICD-10-PCS; principal; 2018-12-21)
DX: L03.114 Cellulitis of left upper limb (principal); L02.412 Cutaneous abscess of left axilla; B95.62 Methicillin resistant Staphylococcus aureus infection as the cause of diseases classified elsewhere; M79.602 Pain in left arm; G89.29 Other chronic pain; F11.11 Opioid abuse, in remission; Z79.899 Other long term (current) drug therapy; Z90.49 Acquired absence of other specified parts of digestive tract; Z86.14 Personal history of Methicillin resistant Staphylococcus aureus infection; Z79.891 Long term (current) use of opiate analgesic; Z98.890 Other specified postprocedural states
CPT/HCPCS: 10060; 99284; 96375; 96365; 96367; 36415 ×3; 87040; 87070; 87205; 82565; 83735; 85025 ×2; 85027; 87075; 87077; 80048; 80053; 87186; 80202; 73201; G0378 ×3; J2250; J3010; J3490 ×2; J1885 ×3; J2270; J1170; J2405; J7060 ×4; J7030; J2704; J3370 ×3; J0696; 00400

== ENCOUNTER 2019-03-19 23:32 | Emergency (ER) | payer OTHER ==
[2019-03-20] MEDS ORDERED: DEXAMETHASONE SOD PHOS INJ 10 MG/1 ML VIAL IM ONE (05:45)
[2019-03-20] MEDS ORDERED: KETOROLAC TROMETHAMINE 60 MG/2 ML SDV IM ONE (05:45)
--- NOTE | 2019-03-20 05:58 | ER Document Report ---
HPI - HPI Time Seen by Provider: 03/20/19 05:05 Pain Level: 2 Context: Patient is a 28-year-old male who presents emergency department with a chief complaint of mid and lower back pain. He is a prisoner and he was sleeping on the top bunk and he fell and landed on his back. He states he has some tingling in his calves. He does have some tenderness to his mid thoracic spine. He also has tenderness to his lumbar spine. He has not taken any medication for the jose luis n. Past surgical history includes appendectomy. He does not have any past medical history. He does not take any medications. - CONSTITUTIONAL Constitutional: DENIES: Fever, Chills - NEURO Neurology: DENIES: Headache - CARDIOVASCULAR Cardiovascular: DENIES: Chest pain - RESPIRATORY Respiratory: DENIES: Trouble Breathing, Coughing - GASTROINTESTINAL Gastrointestinal: DENIES: Abdominal Pain, Nausea, Patient vomiting, Diarrhea - REPRODUCTIVE Reproductive: DENIES: : - MUSCULOSKELETAL Musculoskeletal: REPORTS: Back Pain - Mid back at T7, lumbar spine. DENIES: Extremity pain, Neck Pain, Swelling - DERM Skin Color: Normal Skin Problems: None Past Medical History - Social History Smoking Status: Unknown if Ever Smoked Family History: Arthritis, COPD, CVA, DM, Malignancy, Thyroid Disfunction Patient has suicidal ideation: No Patient has homicidal ideation: No Renal/ Medical History: Denies: Hx Peritoneal Dialysis Musculoskeletal Medical History: Reports Hx Musculoskeletal Trauma Skin Medical History: Reports Hx Cellulitis, Reports Hx MRSA Traumatic Medical History: Reports: Hx Fractures Infectious Medical History: Reports: Hx MRSA Past Surgical History: Reports: Hx Appendectomy, Hx Orthopedic Surgery - Right hand - Immunizations Hx Diphtheria, Pertussis, Tetanus Vaccination: Yes Vertical Provider Document - CONSTITUTIONAL Agree With Documented VS: Yes Exam Limitations: No Limitations General Appearance: No Apparent Distress - INFECTION CONTROL TRAVEL OUTSIDE OF THE [place] IN LAST 30 DAYS: No - HEENT HEENT: Atraumatic, Normocephalic - NECK Neck: Normal Inspection - RESPIRATORY Respiratory: Breath Sounds Normal, No Respiratory Distress - CARDIOVASCULAR Cardiovascular: Regular Rate, Regular Rhythm Pulses: Normal: Radial - MUSCULOSKELETAL/EXTREMETIES Musculoskeletal/Extremeties: FROM, Tender - Thoracic spine at T7 and lumbar spine. negative: No Edema, Eccymosis - NEURO Level of Consciousness: Awake, Alert, Appropriate Motor/Sensory: No Motor Deficit, No Sensory Deficit - DERM Integumentary: Warm, Dry, No Rash Course - Re-evaluation Re-evalutation: 03/20/19 07:19 The patient's x-rays are all negative for any acute fracture. Suspect patient had a contusion and this is the pain he is feeling. At this time he will be discharged. He is able to walk. I have a very low suspicion for central cord damage. I have instructed him that if he continues to have pain, he needs to follow-up with the primary care doctor at senior living to have further diagnostic imaging. Verbal discharge instructions were given to the patient. They verbalized understanding. They are stable for discharge. - Vital Signs Vital signs: Temp Pulse Resp BP Pulse Ox 97.7 F 75 18 123/81 100 03/20/19 01:00 03/20/19 01:00 03/20/19 01:00 03/20/19 01:00 03/20/19 01:00 Discharge - Discharge Clinical Impression: Fall Qualifiers: Encounter type: initial encounter Qualified Code(s): W19.XXXA - Unspecified fall, initial encounter Back pain Qualifiers: Back pain location: back pain in unspecified location Chronicity: acute Back pain laterality: midline Qualified Code(s): M54.9 - Dorsalgia, unspecified Condition: Stable Disposition: OTHER Additional Instructions: You are seen today in the emergency department after a fall. Your x-rays are normal. You did a steroid shot and pain medication shot here in the emergency department. You can take Tylenol 1000 mg and ibuprofen 600 mg every 6 hours as needed for your pain. Please have the nurse that she will give you this as needed. If you continue to have pain, please follow-up with the senior living primary care provider.
--- NOTE | 2019-03-20 07:06 | RADIOLOGY REPORT (SQ) ---
EXAM DESCRIPTION: XR THORACIC SPINE 2 VIEWS, XR LUMBAR SPINE ANTEROPOSTERIOR, LATERAL, AND OBLIQUES COMPLETED DATE/TME: 03/20/2019 05:45 CLINICAL HISTORY: 28 years Male, fall COMPARISON: None. Findings: Normal alignment. Mild dextroconvexity of the thoracic spine. Vertebral and intervertebral heights are maintained. Extraspinal structures are grossly intact. IMPRESSION: No acute findings of XR THORACIC SPINE 2 VIEWS, XR LUMBAR SPINE ANTEROPOSTERIOR, LATERAL, AND OBLIQUES. .
[2019-03-20 08:12] VITALS: BP 126/76
== END 2019-03-20 08:12 | disposition other institution (70) ==
LOC: ER 23:32
DX: M54.5 Low back pain (principal); R20.0 Anesthesia of skin; W19.XXXA Unspecified fall, initial encounter
CPT/HCPCS: 99283; 96372; 72110; 72070; J1885; J1100

== ENCOUNTER 2020-05-25 09:22 | Emergency (ER) | payer SELFPAY ==
[2020-05-25 09:41] VITALS: BP 126/67
--- NOTE | 2020-05-25 09:56 | ER Document Report ---
Entered by VAISHALI PHAN SCRIBE 05/25/20 0941 Acting as scribe for:JERZY DUNNE MD ED General - General Chief Complaint: Near Syncope Stated Complaint: SYNCOPE Time Seen by Provider: 05/25/20 09:35 Information source: Patient Notes: This 29 year old male patient presents to the emergency department today with complaints of a syncopal event today. He reports that he was hauling limbs at work and "then i dont know what happened". He reports he fell down to the grass but adds that he did not hit his head. Patient mentions that he was "up all night having sex" and he is unsure if it is related. He has been to this ED for a heroin overdose in the past although he denies any current usage. TRAVEL OUTSIDE OF THE [place] IN LAST 30 DAYS: No - Related Data Allergies/Adverse Reactions: No Known Allergies Allergy (Verified 12/21/18 12:55) Past Medical History - General Information source: Patient - Social History Smoking Status: Current Every Day Smoker - 2ppd Cigarette use (# per day): Yes Frequency of alcohol use: None Drug Abuse: Other - Hx of heroin abuse. Denies now. Lives with: Family Family History: Arthritis, COPD, CVA, DM, Malignancy, Thyroid Disfunction Musculoskeletal Medical History: Reports Hx Musculoskeletal Trauma Skin Medical History: Reports Hx Cellulitis, Reports Hx MRSA Traumatic Medical History: Reports: Hx Fractures Infectious Medical History: Reports: Hx MRSA Past Surgical History: Reports: Hx Appendectomy, Hx Orthopedic Surgery - Right hand - Immunizations Hx Diphtheria, Pertussis, Tetanus Vaccination: Yes Review of Systems - Review of Systems Constitutional: No symptoms reported EENT: No symptoms reported Cardiovascular: See HPI, Syncope Respiratory: No symptoms reported Gastrointestinal: No symptoms reported Genitourinary: No symptoms reported Male Genitourinary: No symptoms reported Musculoskeletal: No symptoms reported Skin: No symptoms reported Hematologic/Lymphatic: No symptoms reported Neurological/Psychological: No symptoms reported -: Yes All other systems reviewed and negative Physical Exam - Vital signs Vitals: Temp Pulse Resp BP Pulse Ox 97.9 F 111 H 16 126/67 H 100 05/25/20 09:27 05/25/20 09:27 05/25/20 09:27 05/25/20 09:27 05/25/20 09:27 - Notes Notes: Physical Exam: General: Alert, moaning and groaning throughout exam, states he is having trouble saying what he wants to and "his head feels funny". HEENT: Normocephalic. Atraumatic. PERRL. Extraocular movements intact. Oropha rynx clear. Neck: Supple. Non-tender. Respiratory: No respiratory distress. Clear and equal breath sounds bilaterally. Cardiovascular: Regular rate and rhythm. Slightly weak radial pulse. Abdominal: Normal Inspection. Non-tender. No distension. Normal Bowel Sounds. Back: No gross abnormalities. Extremities: Moves all four extremities. Upper extremities: Normal inspection. Normal ROM. Lower extremities: Normal inspection. No edema. Normal ROM. Neurological: Normal cognition. AAOx4. Normal speech. Psychological: Normal affect. Normal Mood. Skin: Track orozco in left AC. Course - Re-evaluation Re-evalutation: 05/25/20 12:38 Patient has had 3 L of IV fluids, has not urinated yet. He is sleeping soundly. - Vital Signs Vital signs: Temp Pulse Resp BP Pulse Ox 97.9 F 111 H 16 126/67 H 100 05/25/20 09:27 05/25/20 09:27 05/25/20 09:27 05/25/20 09:27 05/25/20 09:27 - Laboratory Result Diagrams: 05/25/20 09:44 05/25/20 09:44 Laboratory results interpreted by me: 05/25/20 05/25/20 05/25/20 09:44 09:44 13:58 RDW 14.7 H Total Bilirubin 3.3 H Direct Bilirubin 1.4 H AST 878 H ALT 1074 H Alkaline Phosphatase 269 H Creatine Kinase 403 H Urine Glucose (UA) 150 H Urine Urobilinogen 4.0 H Discharge - Discharge Clinical Impression: Syncope and collapse, Dehydration, Amphetamine abuse, Hepatitis, Multiple substance abuse Condition: Stable Disposition: HOME, SELF-CARE Additional Instructions: Hepatitis You have hepatitis. Hepatitis is an inflammation of the liver, usually caused by a virus. Usually there is a week or so of malaise, fatigue, aches, lack of appetite, and headache, followed by nausea and vomiting, dark urine, and jaundice. Cases of hepatitis A, B, or C are usually reported to the health department. Tests will determine what type of hepatitis you have: (1) Hepatitis B: This type of hepatitis is not highly contagious. It is usually transmitted by needles or sexual contact. The length of the illness is longer (a couple of months), and the chance of long-term complications is greater. Special immune globulin is available for sexual partners or others exposed to blood or body fluids. (2) Hepatitis A (infectious hepatitis): Hepatitis A is more contagious, but has a shorter length of illness (2-4 weeks). Close personal contacts may need gamma globulin shots to prevent hepatitis. (3) Hepatitis C: This type of hepatitis is passed by blood products or sexual contact. The initial illness is less severe, but there is a good chance the hepatitis will become chronic. (4) Non-specific hepatitis: Other viruses can cause hepatitis. These cases of hepatitis usually go away without permanent damage. There is no cure for hepatitis. While you are ill, you may receive medication to make you more comfortable. Do not drink alcohol, and don't take any drug or medication not approved by your doctor. Rest and try to eat a healthy diet. Use good handwashing so you don't spread the virus. Shared toys should be cleaned with disinfectant. Clean the toilets, sinks, and counter surfaces in bathrooms. Launder clothing in hot water. Return or call the doctor if you develop increasing abdominal pain, severe vomiting, dehydration, severe weakness, or confusion. You passed out today most likely due to being extremely dehydrated. You also have hepatitis which is a new problem based on your previous lab work. Your drug screen was positive for opiates, benzodiazepines, and amphetamines. You should drink plenty of fluids and get plenty of rest today. You will need to follow-up with a local primary care provider to further evaluate and manage your hepatitis. RETURN TO THE EMERGENCY ROOM IF ANY NEW OR WORSENING SYMPTOMS. I personally performed the services described in the documentation, reviewed and edited the documentation which was dictated to the scribe in my presence, and it accurately records my words and actions.
[2020-05-25] MEDS: RINGERS SOLUTION,LACTATED 1,000 ML IV PRN ×2 (09:59→10:30)
[2020-05-25 10:00] LABS: ABSOLUTE BASOPHILS # (AUTO) 0.1 10^3/uL (0.0-0.2); ABSOLUTE EOSINOPHILS # (AUTO) 0.2 10^3/uL (0.0-0.6); ABSOLUTE MONOCYTES (AUTO) 0.7 10^3/uL (0.1-1.4); ABSOLUTE NEUT (AUTO) 3.3 10^3/uL (1.7-8.2); BASOPHILS % (AUTO) 0.9 % (0-2); EOSINOPHILS % (AUTO) 2.8 % (0-6); HEMATOCRIT 41.2 % (37.9-51.0); LYMPHOCYTES % (AUTO) 32.1 % (13-45); MEAN CORPUSCULAR HEMOGLOBIN 30.3 pg (27.0-33.4); MEAN CORPUSCULAR HGB CONC 33.9 g/dL (32.0-36.0); MEAN CORPUSCULAR VOLUME 89 fl (80-97); MONOCYTES % (AUTO) 11.3 % (3-13); PLATELET COUNT 267 10^3/uL (150-450); RED BLOOD COUNT 4.61 10^6/uL (4.35-5.55); RED CELL DISTRIBUTION WIDTH 14.7 % (11.5-14.0); SEGMENTED NEUTROPHILS % (AUTO) 52.9 % (42-78); TOTAL CELLS COUNTED % (AUTO) 100 %; WHITE BLOOD COUNT 6.3 10^3/uL (4.0-10.5)
[2020-05-25 10:17] LABS: ALBUMIN 4.5 g/dL (3.5-5.0); ALKALINE PHOSPHATASE 269 U/L (38-126); ANION GAP 9 (5-19); BILIRUBIN,DIRECT 1.4 mg/dL (0.0-0.4); BILIRUBIN,TOTAL 3.3 mg/dL (0.2-1.3); BLOOD UREA NITROGEN 20 mg/dL (7-20); CALCIUM 9.7 mg/dL (8.4-10.2); CARBON DIOXIDE 29 mmol/L (22-30); CHLORIDE 103 mmol/L (98-107); CREATINE KINASE 403 U/L (55-170); GLUCOSE 88 mg/dL (75-110); POTASSIUM 3.8 mmol/L (3.6-5.0); TOTAL PROTEIN 8.2 g/dL (6.3-8.2)
[2020-05-25 10:29] LABS: ASPARTATE AMINO TRANSFERASE 878 U/L (17-59)
[2020-05-25] MEDS ORDERED: DEXTROSE 5%-LACTATED RINGERS 1,000 ML IV ONE ×2 (11:26→12:39)
[2020-05-25 14:14] LABS: APPEARANCE,URINE CLEAR; BILIRUBIN,URINE NEGATIVE (NEGATIVE); COLOR,URINE AMBER; GLUCOSE, URINE 150 mg/dL (NEGATIVE); KETONES,URINE NEGATIVE (NEGATIVE); LEUKOCYTE ESTERASE,URINE NEGATIVE (NEGATIVE); NITRITE,URINE NEGATIVE (NEGATIVE); PROTEIN,URINE NEGATIVE (NEGATIVE); URINE SPECIFIC GRAVITY 1.024
[2020-05-25 14:27] LABS: URINE BARBITURATES SCREEN NEGATIVE; URINE COCAINE SCREEN NEGATIVE; URINE MARIJUANA (THC) SCREEN NEGATIVE; URINE METHADONE SCREEN NEGATIVE; URINE PHENCYCLIDINE SCREEN NEGATIVE
[2020-05-25 14:41] LABS: URINE BENZODIAZEPINES SCREEN UNCONFIRMED POSITIVE
[2020-05-26 08:37] LABS: HEPATITS B SURFACE ANTIGEN Negative (Negative)
[2020-05-26 11:21] LABS: HEPATITIS C VIRUS ANTIBODY >11.0 s/co ratio (0.0-0.9)
== END 2020-05-25 15:05 | disposition home or self-care (01) ==
LOC: ER 09:22
DX: R55 Syncope and collapse (principal); E86.0 Dehydration; F15.10 Other stimulant abuse, uncomplicated; F17.210 Nicotine dependence, cigarettes, uncomplicated; K75.9 Inflammatory liver disease, unspecified
CPT/HCPCS: 99284; 96360; 96361; 36415; 82550; 83690; 85025; 80053; 81001; 84484; 80307; 80074; J7121; J7120

== ENCOUNTER 2020-07-03 16:18 | Inpatient (IN) | payer MEDICAID ==
[2020-07-03] MEDS ORDERED: NORMAL SALINE IV ONE (16:53)
[2020-07-03] MEDS ORDERED: VANCOMYCIN HCL INJ 1000 MG VIAL IV ONE (16:55)
[2020-07-03] MEDS ORDERED: CEFEPIME 2 GM/D5W RTU 2 GM/50 ML RTUPB IV ONE (16:57)
--- NOTE | 2020-07-03 16:58 | ER Document Report ---
ED Medical Screen (RME) - General Chief Complaint: Arm Pain Stated Complaint: ARM PAIN Time Seen by Provider: 07/03/20 16:35 TRAVEL OUTSIDE OF THE [place] IN LAST 30 DAYS: No - HPI Notes: 07/03/20 16:56 29-year-old male to the emergency department with complaints of severe right elbow and forearm pain that began 3 days ago and is gotten worse. He states he started with a wound to his right antecubital fossa. He states he works for a [employer] company and thinks may be poked with a [place]. He states that since then the arm is gotten more swollen, more red, more painful. He denies any fevers. He is of note a former IV drug abuser. He states he last used 2 months ago. He is in the [facility] clinic. Brief medical screening exam the right arm is very swollen and erythematous from the level of the elbow down to the wrist. Erythema is nearly circumferential. Very taut and tender to palpation. There is an area of honey crusted wound to the antecubital fossa. Sepsis orders started and Vanco and cefepime ordered. I performed a brief medical screening exam on the patient determined that the patient needs further evaluation and management by main side provider. I have placed initial orders to help expedite care. - Related Data Allergies/Adverse Reactions: No Known Allergies Allergy (Verified 12/21/18 12:55) Past Medical History Renal/ Medical History: Denies: Hx Peritoneal Dialysis Musculoskeltal Medical History: Reports Hx Musculoskeletal Trauma Skin Medical History: Reports Hx Cellulitis, Reports Hx MRSA Traumatic Medical History: Reports: Hx Fractures Infectious Medical History: Reports: Hx MRSA Past Surgical History: Reports: Hx Appendectomy, Hx Orthopedic Surgery - Right hand - Immunizations Hx Diphtheria, Pertussis, Tetanus Vaccination: Yes Physical Exam - Vital signs Vitals: Temp Pulse Resp BP Pulse Ox 98.3 F 108 H 20 128/82 H 97 07/03/20 16:21 07/03/20 16:21 07/03/20 16:21 07/03/20 16:21 07/03/20 16:21 Course - Vital Signs Vital signs: Temp Pulse Resp BP Pulse Ox 98.3 F 108 H 20 128/82 H 97 07/03/20 16:21 07/03/20 16:21 07/03/20 16:21 07/03/20 16:21 07/03/20 16:21
--- NOTE | 2020-07-03 17:19 | RADIOLOGY REPORT (SQ) ---
EXAM DESCRIPTION: ELBOW RIGHT AP/LAT IMAGES COMPLETED DATE/TIME: 07/03/2020 5:09 pm REASON FOR STUDY: elbow infection, eval osteo COMPARISON: None. EXAM PARAMETERS: NUMBER OF VIEWS: Two view. TECHNIQUE: lateral and oblique radiographic images acquired of the right elbow. LIMITATIONS: None. FINDINGS: MINERALIZATION: Normal. BONES: No acute fracture or dislocation. No worrisome bone lesions. JOINTS: No effusion. SOFT TISSUES: Moderate soft tissue swelling. No radiopaque foreign body. OTHER: No other significant finding. IMPRESSION: NO FRACTURE.No radiopaque foreign body. TECHNICAL DOCUMENTATION: JOB ID: [id number] [place]-72 2010 [employer]- All Rights Reserved Reading location - IP/workstation name: [email or web address]
--- NOTE | 2020-07-03 18:06 | ER Document Report ---
ED Extremity Problem, Upper - General TRAVEL OUTSIDE OF THE [place] IN LAST 30 DAYS: No - Related Data Home Medications: suboxone <JESSICA PHILLIPS - Last Filed: 07/03/20 18:01> <ONEIL BOOGIE IV - Last Filed: 07/03/20 22:02> - General Chief Complaint: Skin Problem Stated Complaint: ARM PAIN Time Seen by Provider: 07/03/20 16:35 Notes: This 29-year-old male presents to the emergency department with a 3-day history of swelling and pain involving the right forearm. He states that he developed an area of swelling and tenderness in the right antecubital area. He states that he attempted to drain it at home with a needle and after that attempt the area has spread and the entire forearm is now swollen. He complains of aching pain and pain with flexion and extension of his fingers. He is a prior IV drug user, states that he has not injected himself for IV drugs and more than 3 years. He never injected the right arm. Is presently on Suboxone and goes to the Suboxone/pain management clinic. He does work in [employer] and is not sure whether he may have accidentally sustained an injury while working. (JESSICA PHILLIPS) - Related Data Allergies/Adverse Reactions: No Known Allergies Allergy (Verified 12/21/18 12:55) Past Medical History - Social History Smoking Status: Current Every Day Smoker Chew tobacco use (# tins/day): No Drug Abuse: Marijuana Family History: Arthritis, COPD, CVA, DM, Malignancy, Thyroid Disfunction Renal/ Medical History: Denies: Hx Peritoneal Dialysis Musculoskeletal Medical History: Reports Hx Musculoskeletal Trauma Skin Medical History: Reports Hx Cellulitis, Reports Hx MRSA Traumatic Medical History: Reports: Hx Fractures Infectious Medical History: Reports: Hx MRSA Past Surgical History: Reports: Hx Appendectomy, Hx Orthopedic Surgery - Right hand - Immunizations Hx Diphtheria, Pertussis, Tetanus Vaccination: Yes <JESSICA PHILLIPS - Last Filed: 07/03/20 18:01> Review of Systems <JESSICA PHILLIPS - Last Filed: 07/03/20 18:01> - Review of Systems Notes: Constitutional: Negative for fever. HENT: Negative for sore throat. Eyes: Negative for visual changes. Cardiovascular: Negative for chest pain. Respiratory: Negative for shortness of breath. Gastrointestinal: Negative for abdominal pain, vomiting or diarrhea. Genitourinary: Negative for dysuria. Musculoskeletal: HPI Skin: See HPI Neurological: Negative for headaches, weakness or numbness. 10 point ROS negative except as marked above and in HPI. (JESSICA PHILLIPS) Physical Exam <JESSICA PHILLIPS - Last Filed: 07/03/20 18:01> - Vital signs Vitals: Temp Pulse Resp BP Pulse Ox 98.3 F 108 H 20 128/82 H 97 07/03/20 16:21 07/03/20 16:21 07/03/20 16:21 07/03/20 16:21 07/03/20 16:21 - Notes Notes: PHYSICAL EXAMINATION: Physical Exam: General: Well-nourished well-developed in no acute distress HEENT: NC/AT, pupils equal round and reactive to light, MM moist,nares clear, oropharynx clear, airway patent Neck: supple, no adenopathy, no masses. Good range of motion Lungs: clear, no wheezing, no rales no rhonchi CVS: Regular rate and rhythm no murmur gallop or rub Abdomen: Soft, active, nontender, no masses, no hepatosplenomegaly Ext: Right arm with swelling in the antecubital region and the entire right forearm hand and fingers. There is some erythema, there is tightness in the tissues., neurovascular is intact. There is an opening in the antecubital region and there is a purulent drainage noted. Neuro: Alert and responsive, moving all 4 extremities on command, cranial nerves intact, no focal findings Skin: Intact no open lesions, no rash PSYCH: Normal mood, normal affect. (JESSICA PHILLIPS) Course - Laboratory Result Diagrams: 07/03/20 18:02 07/03/20 18:02 - Diagnostic Test Radiology reviewed: Image reviewed, Reports reviewed - Consults Dr. Brantley, surgeon Time consulted: 21:18 - Dr. Brantley came to see the patient in the ED and did a bedside ultrasound which shows a loculated pocket of fluid that he said he will drain. He requested that the patient be admitted to the medical service for antibiotics and pain management and he will gladly consult. Consulted provider: will come to ER Dr. Mercado Time consulted: 21:25 - Dr. Mercado stated she would see pt in ed, agreed to admit Consulted provider: will come to ER <ONEIL BOOGIE IV - Last Filed: 07/03/20 22:02> - Re-evaluation Re-evalutation: 07/03/20 21:28 Results of ED MSE discussed with patient. Patient informed that admission and surgical consultation is recommended. Patient is agreeable to this all questions were answered. (ONEIL BOOGIE IV) - Vital Signs Vital signs: Temp Pulse Resp BP Pulse Ox 98.3 F 108 H 20 128/82 H 97 07/03/20 16:50 07/03/20 16:21 07/03/20 16:21 07/03/20 16:21 07/03/20 16:21 - Laboratory Laboratory results interpreted by me: 07/03/20 07/03/20 07/03/20 18:02 18:02 18:02 WBC 15.3 H RDW 14.1 H Lymph % (Auto) 8.9 L Absolute Neuts (auto) 12.3 H Absolute Monos (auto) 1.5 H Seg Neutrophils % 80.5 H Sodium 135.7 L Potassium 3.4 L Chloride 97 L Lactic Acid 2.2 H Total Bilirubin 2.1 H Direct Bilirubin 1.3 H AST 101 H ALT 340 H Alkaline Phosphatase 235 H - Consults Dr. Brantley, surgeon Reason for consultation: 07/03/20 21:56 Right forearm cellulitis and myositis. (ONEIL BOOGIE IV) Dr. Mercado Reason for consultation: 07/03/20 21:58 Cellulitis and myositis of the right forearm (ONEIL BOOGIE IV) Discharge <JESSICA PHILLIPS - Last Filed: 07/03/20 18:01> - Discharge Admitting Provider: hospitalistdr mercado Unit Admitted: Medical Floor <ONEIL BOOGIE IV - Last Filed: 07/03/20 22:02> - Discharge Clinical Impression: Cellulitis Qualifiers: Site of cellulitis: extremity Site of cellulitis of extremity: upper extremity Laterality: right Qualified Code(s): L03.113 - Cellulitis of right upper limb Condition: Stable Disposition: ADMITTED INPATIENT
[2020-07-03] MEDS ORDERED: MORPHINE SULFATE 10 MG/ML INJ IV ONE ×2 (18:07→21:10)
[2020-07-03 18:22] LABS: ABSOLUTE EOSINOPHILS # (AUTO) 0.1 10^3/uL (0.0-0.6); ABSOLUTE LYMPHOCYTES (AUTO) 1.4 10^3/uL (0.5-4.7); ABSOLUTE MONOCYTES (AUTO) 1.5 10^3/uL (0.1-1.4); ABSOLUTE NEUT (AUTO) 12.3 10^3/uL (1.7-8.2); BASOPHILS % (AUTO) 0.3 % (0-2); EOSINOPHILS % (AUTO) 0.5 % (0-6); HEMATOCRIT 41.5 % (37.9-51.0); LYMPHOCYTES % (AUTO) 8.9 % (13-45); MEAN CORPUSCULAR HEMOGLOBIN 29.7 pg (27.0-33.4); MEAN CORPUSCULAR HGB CONC 33.7 g/dL (32.0-36.0); MEAN CORPUSCULAR VOLUME 88 fl (80-97); MONOCYTES % (AUTO) 9.8 % (3-13); RED BLOOD COUNT 4.71 10^6/uL (4.35-5.55); RED CELL DISTRIBUTION WIDTH 14.1 % (11.5-14.0); SEGMENTED NEUTROPHILS % (AUTO) 80.5 % (42-78); TOTAL CELLS COUNTED % (AUTO) 100 %; WHITE BLOOD COUNT 15.3 10^3/uL (4.0-10.5)
[2020-07-03 18:36] LABS: INTERNATIONAL RATION (INR) 1.04; PROTHROMBIN TIME 13.8 SEC (11.4-15.4)
[2020-07-03 18:41] LABS: ALBUMIN 4.2 g/dL (3.5-5.0); ALKALINE PHOSPHATASE 235 U/L (38-126); ANION GAP 13 (5-19); ASPARTATE AMINO TRANSFERASE 101 U/L (17-59); BILIRUBIN,DIRECT 1.3 mg/dL (0.0-0.4); BILIRUBIN,TOTAL 2.1 mg/dL (0.2-1.3); BLOOD UREA NITROGEN 7 mg/dL (7-20); CALCIUM 9.3 mg/dL (8.4-10.2); CARBON DIOXIDE 26 mmol/L (22-30); CHLORIDE 97 mmol/L (98-107); GLUCOSE 109 mg/dL (75-110); POTASSIUM 3.4 mmol/L (3.6-5.0); TOTAL PROTEIN 7.9 g/dL (6.3-8.2)
[2020-07-03 18:42] LABS: PLATELET COUNT 412 10^3/uL (150-450)
--- NOTE | 2020-07-03 20:43 | RADIOLOGY REPORT (SQ) ---
EXAM DESCRIPTION: CT UPPER EXTREMITY WITH IV CONTRAST COMPLETED DATE/TME: 07/03/2020 18:12 CLINICAL HISTORY: 29 years, Male, Right upper extremity swelling/infection COMPARISON: None. TECHNIQUE: Contrast enhanced CT of the right upper extremity was acquired. Images were obtained after the administration of 65 mL of Omnipaque 350 intravenous contrast. Images stored on PACS. All CT scanners at this facility use dose modulation, iterative reconstruction, and/or weight based dosing when appropriate to reduce radiation dose to as low as reasonably achievable (ALARA). [facility]: Dose Right [facility]: CareDose [facility]: Dose Right [facility]: Teradose 4D [facility]: [email or web address] LIMITATIONS: None. FINDINGS: Visualized portions of the left lung are clear. Visualized osseous structures appear normal without acute fracture or dislocation. There is circumferential inflammatory stranding located about the mid to distal upper arm extending into the elbow as well as the mid to distal forearm. In addition, there is infiltrative hypodensity located about the musculature of the proximal to mid forearm, specifically involving the medial aspect of the proximal to mid forearm with additional fluid interdigitating the fascial planes of the deep musculature of the forearm.. No obvious well-demarcated drainable fluid collections are clearly identified. However, there may be hypodensity within the a superficial venous structure at the level of the elbow (likely antecubital vein), suspicious for superficial venous thrombosis. Associated adjacent inflammatory stranding is evident. No retained radiopaque foreign bodies are clearly identified. No soft tissue gas. IMPRESSION: Diffuse soft tissue swelling about the upper arm extending to the elbow and forearm, as above described. Superimposed enlargement and hypodensity about the musculature along the medial aspect of the proximal to mid forearm is suspicious for underlying infectious myositis. No obvious drainable fluid collections identified on this exam. However, there is suspected superficial thrombophlebitis involving the antecubital vein. This could be confirmed with ultrasound. Additionally, inflammatory stranding/fluid appears to interdigitate the fascial planes of the deep musculature of the proximal to mid forearm. No superimposed foci of soft tissue gas. TECHNICAL DOCUMENTATION: Quality ID # 436: Final reports with documentation of one or more dose reduction techniques (e.g., Automated exposure control, adjustment of the mA and/or kV according to patient size, use of iterative reconstruction technique) copyright 2011 [employer]- All Rights Reserved
[2020-07-03] MEDS ORDERED: LORAZEPAM INJ 2 MG/1 ML VIAL IV ONE (21:45)
[2020-07-03] MEDS ORDERED: HYDROMORPHONE HCL INJ/PF 2 MG/ML AMPULE IV ONE (21:45)
[2020-07-03] MEDS ORDERED: ONDANSETRON HCL INJ/PF 4 MG/2 ML SDV IV PRN (21:49)
--- NOTE | 2020-07-03 21:51 | Operative Report ---
Operative Report DATE OF SURGERY: 07/03/20 PREOPERATIVE DIAGNOSIS: Status post injection right antecubital fossa with mass yash arm swelling: Myositis, fasciitis POSTOPERATIVE DIAGNOSIS: Same with abscess antecubital fossa tracking towards brachial sheath OPERATION: Focused ultrasound right upper extremity SURGEON: HERMELINDA DANIELS TISSUE REMOVED OR ALTERED: None COMPLICATIONS: None ESTIMATED BLOOD LOSS: None INTRAOPERATIVE FINDINGS: None PROCEDURE: Patient's right upper extremity was examined. There is marked edema of the right arm at the antecubital fossa, and distally. There is an open wound at the antecubital fossa with seropurulent dry discharge. Focused ultrasound of the right upper extremity performed with the variable frequency linear transducer. Findings were significant for patent cephalic vein above and below the elbow, and patent eating cubital vein. There is a hypoechoic collection just below the wound at the antecubital fossa of the proximal arm, consistent with pus, tracking towards the brachial complex specifically brachial artery. Marked edema of the upper extremity, with edema within the proximal muscle bellies Patient tolerated procedure well Recommendations: Admission for IV fluids, intravenous antibiotics, n.p.o. check COVID STATUS, and plan for operative drainage in the morning after patient has been n.p.o.
[2020-07-03] MEDS ORDERED: POTASSIUM CHLORIDE 10 MEQ TABLET.ER PO ONE (21:56)
[2020-07-03] MEDS ORDERED: NORMAL SALINE 1000 ML 1,000 ML IV ONE (21:56)
--- NOTE | 2020-07-03 21:58 | PDOC CONSULTATION ---
Consultation Consult Date: 07/03/20 Attending physician:: ONEIL BOOGIE IV Provider Consulted: HERMELINDA DANIELS Consult reason:: Infection right upper extremity History of Present Illness History of Present Illness: ADEOLA FUENTES is a 29 year old male Presents emergency department via ground rescue complaining of several days her right arm, swelling, purulent discharge from the antecubital fossa. Patient has a long history of substance abuse, including drug abuse but denies any in the last 3 years. Is on Suboxone. Patient is examined the emergency department found to have serum purulent discharge from antecubital fossa wound, marked swelling of the right upper extremity, tenderness, leukocytosis, left shift, elevated lactate level and CT scan findings consistent with myositis, fasciitis but no "drainable abscess". Surgery was consulted. Patient advised admission by the hospitalist service. Past Medical History Past Medical History: Hepatitis A, hepatitis C, MRSA, history of trauma, substance abuse history Infectious Medical History: Reports: Methicillin-Resistant Staph Aureus Past Surgical History Past Surgical History: ORIF hand, history of injections Past Surgical History: Reports: Appendectomy, Orthopedic Surgery - Right hand Social History Smoking Status: Current Every Day Smoker Electronic Cigarette use?: No Frequency of Alcohol Use: None Hx Recreational Drug Use: Yes Drugs: Heroin, Marijuana Family History Family History: None, Arthritis, COPD, CVA, DM, Malignancy, Thyroid Disfunction Parental Family History Reviewed: No Children Family History Reviewed: NA Sibling(s) Family History Reviewed.: NA Medication/Allergy Home Medications: No Home Medications 05/25/20 Allergies/Adverse Reactions: No Known Allergies Allergy (Verified 12/21/18 12:55) Review of Systems Constitutional: PRESENT: as per HPI Eyes: ABSENT: visual disturbances Ears: ABSENT: hearing changes Cardiovascular: ABSENT: chest pain, dyspnea on exertion, edema, orthropnea, palpitations Genitourinary: ABSENT: dysuria, hematuria Musculoskeletal: PRESENT: as per HPI Neurological: PRESENT: other - Numbness, weakness, tenderness right arm Physical Exam Vital Signs: Temp Pulse Resp BP Pulse Ox 98.3 F 108 H 20 128/82 H 97 07/03/20 16:50 07/03/20 16:21 07/03/20 16:21 07/03/20 16:21 07/03/20 16:21 Intake & Output 07/02/20 07/03/20 07/04/20 06:59 06:59 06:59 Intake Total 50 Balance 50 Weight 86.2 kg General appearance: PRESENT: mild distress Head exam: PRESENT: normocephalic Eye exam: PRESENT: EOMI Mouth exam: PRESENT: dry mucosa Neck exam: PRESENT: full ROM Respiratory exam: PRESENT: rhonchi Cardiovascular exam: PRESENT: tachycardia Pulses: PRESENT: normal carotid pulses, normal radial pulses, normal femoral pulses, other - Unable to palpate pulses in the right arm due to edema GI/Abdominal exam: PRESENT: soft Rectal exam: PRESENT: deferred Extremities exam: PRESENT: other - Marked swelling right upper extremity above the antecubital, at the antecubital fossa and distally, with erythema, open wound, small, just distal to the antecubital crease; extreme tenderness Musculoskeletal exam: PRESENT: other - Limited range of motion of the right upp er extremity, and wrist Neurological exam: PRESENT: alert, awake, oriented to person, oriented to place, oriented to time, oriented to situation Psychiatric exam: PRESENT: anxious Results Laboratory Results: 07/03/20 18:02 07/03/20 18:02 07/03/20 07/03/20 07/03/20 18:02 18:02 18:02 WBC 15.3 H RBC 4.71 Hgb 14.0 Hct 41.5 MCV 88 MCH 29.7 MCHC 33.7 RDW 14.1 H Plt Count 412 Seg Neutrophils % 80.5 H Sodium 135.7 L Potassium 3.4 L Chloride 97 L Carbon Dioxide 26 Anion Gap 13 BUN 7 Creatinine 0.85 Est GFR ( Amer) > 60 Glucose 109 Lactic Acid 2.2 H Calcium 9.3 Total Bilirubin 2.1 H AST 101 H Alkaline Phosphatase 235 H Total Protein 7.9 Albumin 4.2 Impressions: Elbow X-Ray 07/03/20 16:55 IMPRESSION: NO FRACTURE.No radiopaque foreign body. Upper Extremity CT 07/03/20 18:12 IMPRESSION: Diffuse soft tissue swelling about the upper arm extending to the elbow and forearm, as above described. Superimposed enlargement and hypodensity about the musculature along the medial aspect of the proximal to mid forearm is suspicious for underlying infectious myositis. No obvious drainable fluid collections identified on this exam. However, there is suspected superficial thrombophlebitis involving the antecubital vein. This could be confirmed with ultrasound. Additionally, inflammatory stranding/fluid appears to interdigitate the fascial planes of the deep musculature of the proximal to mid forearm. No superimposed foci of soft tissue gas. TECHNICAL DOCUMENTATION: Quality ID # 436: Final reports with documentation of one or more dose reduction techniques (e.g., Automated exposure control, adjustment of the mA and/or kV according to patient size, use of iterative reconstruction technique) copyright 2011 [employer]- All Rights Reserved Assessment & Plan - Diagnosis (1) Abscess of right arm Is this a current diagnosis for this admission?: Yes Plan: Impression: Acute abscess right upper extremity with marked cellulitis, probable myositis and fasciitis in patient with history of IV drug abuse, smoking, hepatitis A and hepatitis C with elevated total bilirubin Plan: 1. Admit to medicine service, n.p.o., IV fluids, intravenous antibiotics, right arm elevation 2. We will check COVID status 3. Patient needs to be taken to the operating room, right arm for later open, possible counterincisions and drain placement deep soft tissue infection with pus. Unfortunately patient has been drinking bedside here in the emergency department, so must wait 6 to 8 hours for n.p.o. status to clear. In addition await COVID status. Was explained to patient, and nursing staff. (2) Smoker Is this a current diagnosis for this admission?: Yes (3) History of hepatitis A Is this a current diagnosis for this admission?: Yes (4) History of hepatitis C Is this a current diagnosis for this admission?: Yes (5) History of intravenous drug abuse Is this a current diagnosis for this admission?: Yes (6) History of intravenous drug abuse Is this a current diagnosis for this admission?: Yes - Time Time Spent: 30 to 50 Minutes Medications reviewed and adjusted accordingly: Yes Anticipated discharge: Home Anticipated DC Timeframe: within 72 hours - Inpatient Certification Based on my medical assessment, after consideration of the patient's comorbidities, presenting symptoms, or acuity I expect that the services needed warrant INPATIENT care.: Yes I certify that my determination is in accordance with my understanding of Medicare's requirements for reasonable and necessary INPATIENT services [42 CFR 412.3e].: Yes Medical Necessity: Need For IV Fluids, Need for Pain Control, Need for IV Antibiotics, Need for Surgery
[2020-07-03] MEDS ORDERED: VANCOMYCIN HCL 0 MG in DEXTROSE 5%-WATER 250 ML IV NR (22:00)
[2020-07-03] MEDS ORDERED: VANCOMYCIN HCL INJ 1000 MG VIAL IV PRN (22:49)
--- NOTE | 2020-07-03 22:54 | PDOC H&P ---
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 He states that about 3 days ago, he noticed a pustule in the right antecubital fossa. He frequently gets skin pustules that he is able to "pop" and drain himself. He tried to do the same thing with this particular pustule by using sharp tweezers to pull open the pustule to let it drain, but states that the area just kept getting more painful. Two days ago, he started noticing that his entire arm was becoming more red/swollen. Today, the arm was so painful and swollen that he could barely move his arm or fingers, so he decided to come to the ED. He notes that he previously struggled with IVDU but has been getting help through a local suboxone clinic. He does endorse having injected some of his prescribed suboxone "a couple weeks ago" but states that he uses a clean needle. Otherwise, he denies any other injection drug use in the last 2 weeks and states that he does not partake in skin-popping. He has a long history of skin pustules and a known prior history of MRSA skin infection. He lives with his and 3 kids; none of the rest of his family have such pustules. His only home medication is suboxone. He denies any fevers but does endorse chills. He had vomiting x1 today due to severe pain. Denies nausea, diarrhea, chest pain, SOB, GALINDO. He denies parasthesia/numbness/tingling of the right arm/hand but does endorse severe pain. 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 Past Medical History Cardiac Medical History: Reports: None Pulmonary Medical History: Reports: None EENT Medical History: Reports: None Neurological Medical History: Reports: None Endocrine Medical History: Reports: None Renal/ Medical History: Reports: None Malignancy Medical History: Reports: None GI Medical History: Reports: Other - hepatitis Musculoskeltal Medical History: Reports: None Skin Medical History: Reports: Other - MRSA skin infection + frequent pustules Psychiatric Medical History: Reports: Substance Abuse, Tobacco Dependency Hematology: Reports: None Infectious Medical History: Reports: Hepatitis C, Methicillin-Resistant Staph Aureus Denies: HIV Past Surgical History Past Surgical History: Reports: Appendectomy, Orthopedic Surgery - Right hand Social History Information Source: Patient Smoking Status: Current Every Day Smoker Cigarettes Packs Per Day: 2 Electronic Cigarette use?: No Frequency of Alcohol Use: None Hx Recreational Drug Use: Yes Drugs: Heroin, Marijuana Family History Family History: None, Arthritis, COPD, CVA, DM, Malignancy, Thyroid Disfunction Parental Family History Reviewed: Yes Children Family History Reviewed: Yes Sibling(s) Family History Reviewed.: Yes Medication/Allergy Home Medications: No Home Medications 05/25/20 Allergies/Adverse Reactions: No Known Allergies Allergy (Verified 12/21/18 12:55) Review of Systems Constitutional: PRESENT: chills. ABSENT: fever(s) Cardiovascular: ABSENT: chest pain, dyspnea on exertion, palpitations Respiratory: ABSENT: cough Gastrointestinal: ABSENT: diarrhea, nausea, vomiting Neurological: ABSENT: numbness, paresthesias, tingling Physical Exam Vital Signs: Temp Pulse Resp BP Pulse Ox 98.3 F 108 H 20 128/82 H 97 07/03/20 16:50 07/03/20 16:21 07/03/20 16:21 07/03/20 16:21 07/03/20 16:21 Intake & Output 07/02/20 07/03/20 07/04/20 06:59 06:59 06:59 Intake Total 50 Balance 50 Weight 86.2 kg General appearance: PRESENT: cooperative, mild distress Eye exam: ABSENT: scleral icterus Mouth exam: PRESENT: dry mucosa Throat exam: ABSENT: post pharyngeal erythema Neck exam: ABSENT: JVD Respiratory exam: PRESENT: clear to auscultation emily, tachypnea. ABSENT: cr ackles, wheezes Cardiovascular exam: PRESENT: tachycardia Pulses: PRESENT: normal radial pulses Vascular exam: PRESENT: normal capillary refill. ABSENT: pallor GI/Abdominal exam: PRESENT: normal bowel sounds, soft. ABSENT: distended, tenderness Rectal exam: PRESENT: deferred Extremities exam: PRESENT: other - RUE is swollen/erythematous/warm from shoulder to hand, large pustule in antecubital fossa, patient is able to move all fingers although he is unable to close fist due to swelling, sensation is in tact in RUE Musculoskeletal exam: PRESENT: ambulatory Neurological exam: PRESENT: alert, awake, oriented to person, oriented to place, oriented to time, oriented to situation Psychiatric exam: PRESENT: anxious Focused psych exam: PRESENT: restlessness Skin exam: ABSENT: mottled Results Laboratory Results: 07/03/20 18:02 07/03/20 18:02 07/03/20 07/03/20 07/03/20 18:02 18:02 18:02 WBC 15.3 H RBC 4.71 Hgb 14.0 Hct 41.5 MCV 88 MCH 29.7 MCHC 33.7 RDW 14.1 H Plt Count 412 Seg Neutrophils % 80.5 H Sodium 135.7 L Potassium 3.4 L Chloride 97 L Carbon Dioxide 26 Anion Gap 13 BUN 7 Creatinine 0.85 Est GFR ( Amer) > 60 Glucose 109 Lactic Acid 2.2 H Calcium 9.3 Total Bilirubin 2.1 H AST 101 H Alkaline Phosphatase 235 H Total Protein 7.9 Albumin 4.2 Impressions: Elbow X-Ray 07/03/20 16:55 IMPRESSION: NO FRACTURE.No radiopaque foreign body. Upper Extremity CT 07/03/20 18:12 IMPRESSION: Diffuse soft tissue swelling about the upper arm extending to the elbow and forearm, as above described. Superimposed enlargement and hypodensity about the musculature along the medial aspect of the proximal to mid forearm is suspicious for underlying infectious myositis. No obvious drainable fluid collections identified on this exam. However, there is suspected superficial thrombophlebitis involving the antecubital vein. This could be confirmed with ultrasound. Additionally, inflammatory stranding/fluid appears to interdigitate the fascial planes of the deep musculature of the proximal to mid forearm. No superimposed foci of soft tissue gas. TECHNICAL DOCUMENTATION: Quality ID # [id number]: Final reports with documentation of one or more dose reduction techniques (e.g., Automated exposure control, adjustment of the mA and/or kV according to patient size, use of iterative reconstruction technique) copyright 2011 [employer]- All Rights Reserved Assessment and Plan - Diagnosis (1) Cellulitis Qualifiers: Site of cellulitis: extremity Site of cellulitis of extremity: upper extremity Laterality: right Qualified Code(s): L03.113 - Cellulitis of right upper limb Is this a current diagnosis for this admission?: Yes (2) Abscess of right arm Is this a current diagnosis for this admission?: Yes (3) History of hepatitis A Is this a current diagnosis for this admission?: Yes (4) History of hepatitis C Is this a current diagnosis for this admission?: Yes (5) History of intravenous drug abuse Is this a current diagnosis for this admission?: Yes (6) History of substance abuse Is this a current diagnosis for this admission?: Yes (7) Tobacco abuse Is this a current diagnosis for this admission?: Yes (8) Leukocytosis Qualifiers: Leukocytosis type: bandemia Qualified Code(s): D72.825 - Bandemia Is this a current diagnosis for this admission?: Yes (9) Lactic acidosis Is this a current diagnosis for this admission?: Yes (10) Hypokalemia Is this a current diagnosis for this admission?: Yes - Plan Summary Summary: ADEOLA FUENTES is a 29 year old male with PMH of opioid dependence on Suboxone therapy, tobacco abuse (2 PPD), MRSA skin infection and 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 RUE Purulent Cellulitis: In the ED, CT of the arm was concerning for probable myositis and fasciitis but no drainable abscess was visualized. General surgery was consulted and performed a bedside ultrasound which was negative for DVT or SVT but did show small pockets of drainable fluid; the plan is for the patient to go to the OR tomorrow for I&D. He has no evidence of compartment syndrome at this time, but will monitor very closely for signs of increasing pain, paresthesias, tense/firm edema, pallor, decreased sensation, etc. - NPO after MN for surgery - BCx x2 obtained prior to antibiotics - start Vancomycin/Zosyn - Q4H neurovascular checks - Dilaudid 2 mg IV Q4H PRN Moderate-Severe Pain - Tylenol PRN mild pain or fever Lactic Acidosis: in the setting of infection/dehydration - trend lactate - IVF Mild LFT Elevation: likely due to recent HAV/HCV infections in 05/2020 - he's not sure when he was last checked for HIV, will order to be checked with AM labs - outpatient follow up for HCV treatment Hypokalemia - check Mg - replete with 40 mEq orally Opioid Dependence - hold home suboxone therapy given acute pain requiring opioid analgesia - of note, urine drug screen this admission was performed AFTER he received opioids in the ED Tobacco Abuse - cessation counseling provided - Nicotine patch DVT ppx: young, ambulatory patient who is low risk for VTE, so will hold off on starting Lovenox for now but consider starting if he is admitted for >48 hours and/or anticipated prolonged bed rest - Time Time Spent with patient: 35 or more minutes Anticipated Discharge Disposition: Home, Self Care Anticipated Discharge Timeframe: within 72 hours
[2020-07-04 00:11] LABS: URINE AMPHETAMINES SCREEN NEGATIVE; URINE BARBITURATES SCREEN NEGATIVE; URINE BENZODIAZEPINES SCREEN NEGATIVE; URINE METHADONE SCREEN NEGATIVE; URINE PHENCYCLIDINE SCREEN NEGATIVE
[2020-07-04 00:13] LABS: URINE COCAINE SCREEN UNCONFIRMED POSITIVE; URINE MARIJUANA (THC) SCREEN UNCONFIRMED POSITIVE
[2020-07-04] MEDS ORDERED: HYDROMORPHONE HCL INJ/PF 2 MG/ML AMPULE IV PRN ×4 (00:17→00:47)
[2020-07-04] MEDS: HYDROMORPHONE HCL INJ/PF 2 MG/ML AMPULE IV PRN ×6 (00:55→21:51)
[2020-07-04] MEDS ORDERED: PIPERACILLIN/TAZOBACTAM 4.5 GM VIAL IV ONE (01:06)
[2020-07-04] MEDS: PIPERACILLIN SODIUM/TAZOBACTAM 4.5 GM in NORMAL SALINE 100 ML IV SCH ×4 (01:16→20:16)
[2020-07-04] MEDS ORDERED: VANCOMYCIN HCL INJ 1000 MG VIAL ONE (04:32)
[2020-07-04] MEDS ORDERED: VANCOMYCIN HCL INJ 500 MG VIAL ONE (04:33)
[2020-07-04] MEDS ORDERED: VANCOMYCIN HCL 1,250 MG in DEXTROSE 5%-WATER 250 ML IV ONE (05:00)
[2020-07-04 07:15] LABS: ABSOLUTE LYMPHOCYTES (AUTO) 1.9 10^3/uL (0.5-4.7); ABSOLUTE MONOCYTES (AUTO) 1.7 10^3/uL (0.1-1.4); ABSOLUTE NEUT (AUTO) 10.4 10^3/uL (1.7-8.2); BASOPHILS % (AUTO) 0.3 % (0-2); EOSINOPHILS % (AUTO) 0.3 % (0-6); HEMATOCRIT 36.9 % (37.9-51.0); HEMOGLOBIN 12.7 g/dL (13.5-17.0); LYMPHOCYTES % (AUTO) 13.3 % (13-45); MEAN CORPUSCULAR HEMOGLOBIN 29.6 pg (27.0-33.4); MEAN CORPUSCULAR HGB CONC 34.4 g/dL (32.0-36.0); MEAN CORPUSCULAR VOLUME 86 fl (80-97); MONOCYTES % (AUTO) 12.2 % (3-13); PLATELET COUNT 329 10^3/uL (150-450); RED BLOOD COUNT 4.29 10^6/uL (4.35-5.55); RED CELL DISTRIBUTION WIDTH 13.8 % (11.5-14.0); SEGMENTED NEUTROPHILS % (AUTO) 73.9 % (42-78); TOTAL CELLS COUNTED % (AUTO) 100 %; WHITE BLOOD COUNT 14.1 10^3/uL (4.0-10.5)
--- NOTE | 2020-07-04 07:16 | EKG REPORT ---
SEVERITY:- BORDERLINE ECG - SINUS RHYTHM : Confirmed by: Jeffery Kirby MD 04-Jul-2020 07:16:25
[2020-07-04 07:17] LABS: INTERNATIONAL RATION (INR) 1.14; PROTHROMBIN TIME 14.8 SEC (11.4-15.4)
[2020-07-04 07:18] LABS: PARTIAL THROMBOPLASTIN TIME 44.3 SEC (23.5-35.8)
[2020-07-04 07:33] LABS: ALBUMIN 3.1 g/dL (3.5-5.0); ALKALINE PHOSPHATASE 172 U/L (38-126); ANION GAP 8 (5-19); ASPARTATE AMINO TRANSFERASE 58 U/L (17-59); BILIRUBIN,DIRECT 1.1 mg/dL (0.0-0.4); BILIRUBIN,TOTAL 2.3 mg/dL (0.2-1.3); BLOOD UREA NITROGEN 4 mg/dL (7-20); CALCIUM 8.8 mg/dL (8.4-10.2); CARBON DIOXIDE 25 mmol/L (22-30); CHLORIDE 101 mmol/L (98-107); CREATINE KINASE 52 U/L (55-170); GLUCOSE 111 mg/dL (75-110); POTASSIUM 3.6 mmol/L (3.6-5.0)
[2020-07-04 07:48] LABS: FREE T4 (FREE THYROXINE) 1.5 ng/dL (0.78-2.19)
[2020-07-04 08:02] LABS: THYROID STIMULATING HORMONE 1.31 uIU/mL (0.47-4.68)
[2020-07-04] MEDS ORDERED: PHARMACY COMMUNICATION ORDER MC ONE (08:45)
[2020-07-04] MEDS ORDERED: SUCCINYLCHOLINE CHLORIDE INJ 200 MG/10 ML VIAL ONE (08:56)
[2020-07-04] MEDS: VANCOMYCIN HCL 1,250 MG in DEXTROSE 5%-WATER 250 ML IV SCH ×2 (09:22→17:49)
[2020-07-04] MEDS ORDERED: LIDOCAINE 1% INJ-PF (10 MG/ML) 30 ML SDV ONE (12:08)
[2020-07-04] MEDS ORDERED: BUPIVACAINE HCL 0.25 % INJ/PF (2.5 MG/1 ML) 30 ML VIAL ONE (12:08)
[2020-07-04] MEDS ORDERED: MIDAZOLAM 2 MG/2 ML INJ ONE (12:09)
[2020-07-04] MEDS ORDERED: PROPOFOL INJ 200 MG/20 ML VIAL IV ONE (12:09)
[2020-07-04] MEDS ORDERED: FENTANYL CITRATE INJ/PF 100 MCG/2 ML AMPUL ONE (12:09)
[2020-07-04] MEDS ORDERED: ONDANSETRON HCL INJ/PF 4 MG/2 ML SDV ONE (12:09)
[2020-07-04] MEDS ORDERED: MEPERIDINE HCL/PF INJ 25 MG/1 ML DISP.SYRIN IV PRN (12:55)
[2020-07-04] MEDS ORDERED: DIPHENHYDRAMINE HCL 50 MG/ML VIAL IV PRN (12:55)
[2020-07-04] MEDS ORDERED: FENTANYL CITRATE INJ/PF 100 MCG/2 ML AMPUL IV PRN ×3 (12:55)
[2020-07-04] MEDS ORDERED: OXYCODONE-ACETAMINOPHEN 5-325 MG TABLET PO PRN ×2 (12:55)
[2020-07-04] MEDS ORDERED: MORPHINE SULFATE 10 MG/ML INJ IV PRN (12:55)
[2020-07-04] MEDS ORDERED: PROMETHAZINE HCL INJ 25 MG/1 ML VIAL IV PRN ×2 (12:55)
--- NOTE | 2020-07-04 13:59 | PDOC PROGRESS REPORT ---
Subjective Progress Note for:: 07/04/20 Subjective:: 29-year-old male with swelling, erythema, and now purulent drainage of the right upper extremity (at the antecubital fossa). The patient denies fevers, chills, chest pain, shortness of breath, abdominal pain, nausea, vomiting, melena, hematochezia, hematemesis, dizziness, blurry vision. He does report pain in the arm. He has pain with passive motion of his hand. Reason For Visit: CELLULITIS Physical Exam Vital Signs: Temp Pulse Resp BP Pulse Ox 98.5 F 80 14 121/74 100 07/04/20 13:35 07/04/20 13:50 07/04/20 13:50 07/04/20 13:50 07/04/20 13:50 Intake & Output 07/03/20 07/04/20 07/05/20 06:59 06:59 06:59 Intake Total 3640 1000 Balance 3640 1000 Weight 87.6 kg General appearance: PRESENT: cooperative, disheveled Head exam: PRESENT: atraumatic, normocephalic Eye exam: PRESENT: EOMI, PERRLA. ABSENT: scleral icterus Mouth exam: PRESENT: moist, neck supple Neck exam: ABSENT: meningismus, tenderness, thyromegaly, tracheal deviation Respiratory exam: PRESENT: unlabored. ABSENT: tachypnea, wheezes Cardiovascular exam: ABSENT: tachycardia Pulses: PRESENT: normal radial pulses GI/Abdominal exam: PRESENT: soft. ABSENT: distended, tenderness Rectal exam: PRESENT: deferred Extremities exam: PRESENT: other - Edema and erythema of the right upper extremity, distal to the antecubital fossa. Purulent drainage at the antecubital fossa. Musculoskeletal exam: ABSENT: deformity Neurological exam: PRESENT: alert, awake, oriented to person, oriented to place, oriented to time, oriented to situation, CN II-XII grossly intact Psychiatric exam: ABSENT: agitated, anxious, depressed Focused psych exam: ABSENT: delusional Skin exam: PRESENT: erythema. ABSENT: cyanosis, jaundice Results Laboratory Results: 07/04/20 06:52 07/04/20 06:52 07/03/20 07/03/20 07/03/20 18:02 18:02 18:02 WBC 15.3 H RBC 4.71 Hgb 14.0 Hct 41.5 MCV 88 MCH 29.7 MCHC 33.7 RDW 14.1 H Plt Count 412 Seg Neutrophils % 80.5 H Sodium 135.7 L Potassium 3.4 L Chloride 97 L Carbon Dioxide 26 Anion Gap 13 BUN 7 Creatinine 0.85 Est GFR ( Amer) > 60 Glucose 109 Lactic Acid 2.2 H Calcium 9.3 Magnesium Total Bilirubin 2.1 H AST 101 H Alkaline Phosphatase 235 H Total Protein 7.9 Albumin 4.2 TSH Free T4 07/04/20 07/04/20 07/04/20 01:00 04:27 06:52 WBC 14.1 H RBC 4.29 L Hgb 12.7 L Hct 36.9 L MCV 86 MCH 29.6 MCHC 34.4 RDW 13.8 Plt Count 329 Seg Neutrophils % 73.9 Sodium Potassium Chloride Carbon Dioxide Anion Gap BUN Creatinine Est GFR ( Amer) Glucose Lactic Acid 1.7 1.0 Calcium Magnesium Total Bilirubin AST Alkaline Phosphatase Total Protein Albumin TSH Free T4 07/04/20 07/04/20 06:52 06:52 WBC RBC Hgb Hct MCV MCH MCHC RDW Plt Count Seg Neutrophils % Sodium 134.2 L Potassium 3.6 Chloride 101 Carbon Dioxide 25 Anion Gap 8 BUN 4 L Creatinine 0.75 Est GFR ( Amer) > 60 Glucose 111 H Lactic Acid Calcium 8.8 Magnesium 1.8 Total Bilirubin 2.3 H AST 58 Alkaline Phosphatase 172 H Total Protein 6.0 L Albumin 3.1 L TSH 1.31 Free T4 1.50 07/04/20 06:52 Creatine Kinase 52 L Impressions: Elbow X-Ray 07/03/20 16:55 IMPRESSION: NO FRACTURE.No radiopaque foreign body. Upper Extremity CT 07/03/20 18:12 IMPRESSION: Diffuse soft tissue swelling about the upper arm extending to the elbow and forearm, as above described. Superimposed enlargement and hypodensity about the musculature along the medial aspect of the proximal to mid forearm is suspicious for underlying infectious myositis. No obvious drainable fluid collections identified on this exam. However, there is suspected superficial thrombophlebitis involving the antecubital vein. This could be confirmed with ultrasound. Additionally, inflammatory stranding/fluid appears to interdigitate the fascial planes of the deep musculature of the proximal to mid forearm. No superimposed foci of soft tissue gas. TECHNICAL DOCUMENTATION: Quality ID # [id number]: Final reports with documentation of one or more dose reduction techniques (e.g., Automated exposure control, adjustment of the mA and/or kV according to patient size, use of iterative reconstruction technique) copyright 2011 [employer]- All Rights Reserved Assessment & Plan - Diagnosis (1) Abscess of right arm Is this a current diagnosis for this admission?: Yes - Time Anticipated Discharge Disposition: Home with Home Health Anticipated Discharge Timeframe: unknwn - Plan Summary Plan Summary: 29-year-old male with a right upper extremity abscess, at the antecubital fossa. It is now draining purulent material. Plan for operative exploration and drainage of the abscess. Risks/benefits discussed, informed consent obtained, and all questions answered.
[2020-07-04] MEDS: NICOTINE 21 MG/24 HR PATCH.TD24 TD SCH (16:13)
--- NOTE | 2020-07-04 16:35 | PDOC PROGRESS REPORT ---
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 He states that about 3 days ago, he noticed a pustule in the right antecubital fossa. He frequently gets skin pustules that he is able to "pop" and drain himse lf. He tried to do the same thing with this particular pustule by using sharp tweezers to pull open the pustule to let it drain, but states that the area just kept getting more painful. Two days ago, he started noticing that his entire arm was becoming more red/swollen. Today, the arm was so painful and swollen that he could barely move his arm or fingers, so he decided to come to the ED. He notes that he previously struggled with IVDU but has been getting help through a local suboxone clinic. He does endorse having injected some of his prescribed suboxone "a couple weeks ago" but states that he uses a clean needle. Otherwise, he denies any other injection drug use in the last 2 weeks and states that he does not partake in skin-popping. He has a long history of skin pustules and a known prior history of MRSA skin infection. He lives with his and 3 kids; none of the rest of his family have such pustules. His only home medication is suboxone. He denies any fevers but does endorse chills. He had vomiting x1 today due to severe pain. Denies nausea, diarrhea, chest pain, SOB, GALINDO. He denies parasthesia/numbness/tingling of the right arm/hand but does endorse severe pain. 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 He states it is now starting to drain given the scab has popped off. General surgery is planning to take him to the OR as soon as his coronavirus test comes back negative. Patient denies any paresthesias, loss of sensation, pulselessness in his right arm. He states he is tolerating antibiotics well and he agrees to having an I&D. UDS positive for narcotics/cocaine/marijuana although patient adamantly denies any recent drug abuse. Otherwise patient has no new complaints today. Reason For Visit: CELLULITIS Physical Exam Vital Signs: Temp Pulse Resp BP Pulse Ox 97.2 F 84 16 112/66 99 07/04/20 14:21 07/04/20 14:21 07/04/20 14:21 07/04/20 14:21 07/04/20 14:21 Intake & Output 07/03/20 07/04/20 07/05/20 06:59 06:59 06:59 Intake Total 3640 1050 Balance 3640 1050 Weight 87.6 kg General appearance: PRESENT: no acute distress, well-developed, well-nourished Head exam: PRESENT: atraumatic, normocephalic Eye exam: PRESENT: conjunctiva pink. ABSENT: scleral icterus Mouth exam: PRESENT: moist Respiratory exam: PRESENT: clear to auscultation emily. ABSENT: rales, rhonchi, wheezes Cardiovascular exam: PRESENT: RRR. ABSENT: diastolic murmur, rubs, systolic murmur GI/Abdominal exam: PRESENT: normal bowel sounds, soft. ABSENT: distended, guarding, mass, organolmegaly, rebound, tenderness Extremities exam: PRESENT: +2 edema, other - Right upper extremity with severe edema/erythema/tenderness. ABSENT: pedal edema Neurological exam: PRESENT: alert, awake, oriented to person, oriented to place, oriented to time, oriented to situation Psychiatric exam: PRESENT: appropriate affect, normal mood Skin exam: PRESENT: dry, intact, warm Results Laboratory Results: 07/04/20 06:52 07/04/20 06:52 07/03/20 07/03/20 07/03/20 18:02 18:02 18:02 WBC 15.3 H RBC 4.71 Hgb 14.0 Hct 41.5 MCV 88 MCH 29.7 MCHC 33.7 RDW 14.1 H Plt Count 412 Seg Neutrophils % 80.5 H Sodium 135.7 L Potassium 3.4 L Chloride 97 L Carbon Dioxide 26 Anion Gap 13 BUN 7 Creatinine 0.85 Est GFR ( Amer) > 60 Glucose 109 Lactic Acid 2.2 H Calcium 9.3 Magnesium Total Bilirubin 2.1 H AST 101 H Alkaline Phosphatase 235 H Total Protein 7.9 Albumin 4.2 TSH Free T4 07/04/20 07/04/20 07/04/20 01:00 04:27 06:52 WBC 14.1 H RBC 4.29 L Hgb 12.7 L Hct 36.9 L MCV 86 MCH 29.6 MCHC 34.4 RDW 13.8 Plt Count 329 Seg Neutrophils % 73.9 Sodium Potassium Chloride Carbon Dioxide Anion Gap BUN Creatinine Est GFR ( Amer) Glucose Lactic Acid 1.7 1.0 Calcium Magnesium Total Bilirubin AST Alkaline Phosphatase Total Protein Albumin TSH Free T4 07/04/20 07/04/20 07/04/20 06:52 06:52 10:00 WBC RBC Hgb Hct MCV MCH MCHC RDW Plt Count Seg Neutrophils % Sodium 134.2 L Potassium 3.6 Chloride 101 Carbon Dioxide 25 Anion Gap 8 BUN 4 L Creatinine 0.75 Est GFR ( Amer) > 60 Glucose 111 H Lactic Acid 1.3 Calcium 8.8 Magnesium 1.8 Total Bilirubin 2.3 H AST 58 Alkaline Phosphatase 172 H Total Protein 6.0 L Albumin 3.1 L TSH 1.31 Free T4 1.50 07/04/20 06:52 Creatine Kinase 52 L Impressions: Elbow X-Ray 07/03/20 16:55 IMPRESSION: NO FRACTURE.No radiopaque foreign body. Upper Extremity CT 07/03/20 18:12 IMPRESSION: Diffuse soft tissue swelling about the upper arm extending to the elbow and forearm, as above described. Superimposed enlargement and hypodensity about the musculature along the medial aspect of the proximal to mid forearm is suspicious for underlying infectious myositis. No obvious drainable fluid collections identified on this exam. However, there is suspected superficial thrombophlebitis involving the antecubital vein. This could be confirmed with ultrasound. Additionally, inflammatory stranding/fluid appears to interdigitate the fascial planes of the deep musculature of the proximal to mid forearm. No superimposed foci of soft tissue gas. TECHNICAL DOCUMENTATION: Quality ID # 436: Final reports with documentation of one or more dose reduction techniques (e.g., Automated exposure control, adjustment of the mA and/or kV according to patient size, use of iterative reconstruction technique) copyright 2011 [employer]- All Rights Reserved Assessment and Plan - Diagnosis (1) Abscess of right arm Is this a current diagnosis for this admission?: Yes Plan: Per Previous Physician: "In the ED, CT of the arm was concerning for probable myositis and fasciitis but no drainable abscess was visualized. General surgery was consulted and performed a bedside ultrasound which was negative for DVT or SVT but did show small pockets of drainable fluid; the plan is for the patient to go to the OR tomorrow for I&D. He has no evidence of compartment syndrome at this time, but will monitor very closely for signs of increasing pain, paresthesias, tense/firm edema, pallor, decreased sensation, etc. - NPO after MN for surgery - BCx x2 obtained prior to antibiotics - start Vancomycin/Zosyn - Q4H neurovascular checks - Dilaudid 2 mg IV Q4H PRN Moderate-Severe Pain - Tylenol PRN mild pain or fever " 06/26/2020 Antibiotics continued, tolerated well per patient General surgery consulted: I&D planned Coronavirus test for OR pending Vancomycin/Zosyn Blood cultures pending (2) Cellulitis Qualifiers: Site of cellulitis: extremity Site of cellulitis of extremity: upper extremity Laterality: right Qualified Code(s): L03.113 - Cellulitis of right upper limb Is this a current diagnosis for this admission?: Yes Plan: As above (3) History of intravenous drug abuse Is this a current diagnosis for this admission?: Yes (4) Hypokalemia Is this a current diagnosis for this admission?: Yes Plan: Replete Trend BMP (5) Tobacco abuse Is this a current diagnosis for this admission?: Yes (6) History of substance abuse Is this a current diagnosis for this admission?: Yes (7) History of hepatitis C Is this a current diagnosis for this admission?: Yes (8) History of hepatitis A Is this a current diagnosis for this admission?: Yes - Plan Summary Summary: ADEOLA FUENTES is a 29 year old male with PMH of opioid dependence on Suboxone therapy, tobacco abuse (2 PPD), MRSA skin infection and 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 RUE Purulent Cellulitis: In the ED, CT of the arm was concerning for probable myositis and fasciitis but no drainable abscess was visualized. General surgery was consulted and performed a bedside ultrasound which was negative for DVT or SVT but did show small pockets of drainable fluid; the plan is for the patient to go to the OR tomorrow for I&D. He has no evidence of compartment syndrome at this time, but will monitor very closely for signs of increasing pain, paresthesias, tense/firm edema, pallor, decreased sensation, etc. - NPO after MN for surgery - BCx x2 obtained prior to antibiotics - start Vancomycin/Zosyn - Q4H neurovascular checks - Dilaudid 2 mg IV Q4H PRN Moderate-Severe Pain - Tylenol PRN mild pain or fever Lactic Acidosis: in the setting of infection/dehydration - trend lactate - IVF Mild LFT Elevation: likely due to recent HAV/HCV infections in 05/2020 - he's not sure when he was last checked for HIV, will order to be checked with AM labs - outpatient follow up for HCV treatment Hypokalemia - check Mg - replete with 40 mEq orally Opioid Dependence - hold home suboxone therapy given acute pain requiring opioid analgesia - of note, urine drug screen this admission was performed AFTER he received opioids in the ED Tobacco Abuse - cessation counseling provided - Nicotine patch DVT ppx: young, ambulatory patient who is low risk for VTE, so will hold off on starting Lovenox for now but consider starting if he is admitted for >48 hours and/or anticipated prolonged bed rest - Time Time Spent with patient: 25-34 minutes Medications reviewed and adjusted accordingly: Yes Anticipated Discharge Disposition: Home, Self Care Anticipated Discharge Timeframe: within 72 hours - Inpatient Certification Based on my medical assessment, after consideration of the patient's comorbidities, presenting symptoms, or acuity I expect that the services needed warrant INPATIENT care.: Yes I certify that my determination is in accordance with my understanding of Medicare's requirements for reasonable and necessary INPATIENT services [42 CFR 412.3e].: Yes Medical Necessity: Significant Comorbidiites Make Outpatient Treatment Too R isky, Need Close Monitoring Due to Risk of Patient Decompensation, Need for IV Antibiotics, Need for Surgery, Risk of Complication if Not Cared For in Hospital, Risk of Diagnosis Which Will Require Inpatient Eval/Care/Monitoring
--- NOTE | 2020-07-04 19:39 | Operative Report ---
Nonrecallable Operative Report DATE OF SURGERY: 07/04/20 PREOPERATIVE DIAGNOSIS: Right arm abscess POSTOPERATIVE DIAGNOSIS: Septic thrombophlebitis of the right antecubital vein OPERATION: 1. Excision of 4 cm segment of right antecubital vein. 2. Drainage of small subcutaneous abscess of the forearm. SURGEON: ARIEL JANSEN ANESTHESIA: GA TISSUE REMOVED OR ALTERED: 1. Wound culture. 2. 4 cm segment of right antecubital vein COMPLICATIONS: Septic thrombophlebitis, requiring excision of the antecubital vein ESTIMATED BLOOD LOSS: Minimal PROCEDURE: Drains/implants: 4 x 4's soaked in Betadine. Procedure in detail: After informed consent was obtained, the patient was brought into the operating room and laid in the supine position. The area of the right upper extremity was prepped and draped in a normal sterile fashion. There was a pustule within the antecubital fossa. This was probed. A small amount of purulent material came from the pustule. The skin was then opened very carefully, to reveal a thrombosed vein immediately beneath the antecubital fossa. The skin was opened proximally, to reveal a small abscess cavity. Wound cultures were taken. This was irrigated and suctioned. Digital inspection was then performed. Upon digital inspection, pus was seen emanating from the antecubital vein. The antecubital vein was opened, and purulent material was readily evident. The antecubital vein was opened proximally and distally. It was thrombosed with purulent material inside. Multiple tributaries to the antecubital vein were ligated, and then divided. The area of gross purulence extended approximately 4 cm. This entire segment was excised. Once a more healthy appearing vein was identified proximally and distally, it was suture ligated using 2-0 Vicryl. The infected portion of vein was then excised and removed from the patient and sent to pathology. Wound was then packed with 4 x 4's soaked in Betadine. A dressing was placed, and the procedure was concluded. All sponge, instrument, and needle counts were correct x2. Condition: Fair.
[2020-07-04] MEDS: ACETAMINOPHEN 325 MG TABLET PO PRN (20:15)
[2020-07-05] MEDS: PIPERACILLIN SODIUM/TAZOBACTAM 4.5 GM in NORMAL SALINE 100 ML IV SCH ×3 (00:51→19:38)
[2020-07-05] MEDS: HYDROMORPHONE HCL INJ/PF 2 MG/ML AMPULE IV PRN ×5 (00:52→23:00)
[2020-07-05] MEDS: VANCOMYCIN HCL 1,250 MG in DEXTROSE 5%-WATER 250 ML IV SCH ×2 (01:40→09:24)
[2020-07-05] MEDS: ACETAMINOPHEN 325 MG TABLET PO PRN ×3 (03:19→20:30)
[2020-07-05] MEDS: NORMAL SALINE 1000 ML 1,000 ML IV PRN ×2 (05:42→20:30)
--- NOTE | 2020-07-05 10:18 | PDOC PROGRESS REPORT ---
Subjective Progress Note for:: 07/05/20 Subjective:: c/o pain Reason For Visit: CELLULITIS Physical Exam Vital Signs: Temp Pulse Resp BP Pulse Ox 98.1 F 73 16 117/71 99 07/05/20 08:40 07/05/20 08:15 07/05/20 08:15 07/05/20 08:15 07/05/20 08:15 Intake & Output 07/04/20 07/05/20 07/06/20 06:59 06:59 06:59 Intake Total 3640 3400 Balance 3640 3400 Weight 87.6 kg 85.4 kg General appearance: PRESENT: mild distress Head exam: PRESENT: normocephalic Eye exam: PRESENT: EOMI Ear exam: PRESENT: normal external ear exam Mouth exam: PRESENT: dry mucosa Neck exam: PRESENT: full ROM Respiratory exam: PRESENT: clear to auscultation emily Cardiovascular exam: PRESENT: RRR Pulses: PRESENT: normal radial pulses, normal femoral pulses, normal dorsalis pedis pul Breast: PRESENT: Normal GI/Abdominal exam: PRESENT: soft Rectal exam: PRESENT: deferred Extremities exam: PRESENT: other - rt arm swollen wound clean no cellluitis Neurological exam: PRESENT: alert, awake, oriented to person, oriented to place Psychiatric exam: PRESENT: appropriate affect Skin exam: PRESENT: dry Results Laboratory Results: 07/04/20 06:52 07/04/20 06:52 07/04/20 10:00 Lactic Acid 1.3 07/04/20 06:52 Creatine Kinase 52 L Impressions: Elbow X-Ray 07/03/20 16:55 IMPRESSION: NO FRACTURE.No radiopaque foreign body. Upper Extremity CT 07/03/20 18:12 IMPRESSION: Diffuse soft tissue swelling about the upper arm extending to the elbow and forearm, as above described. Superimposed enlargement and hypodensity about the musculature along the medial aspect of the proximal to mid forearm is suspicious for underlying infectious myositis. No obvious drainable fluid collections identified on this exam. However, there is suspected superficial thrombophlebitis involving the antecubital vein. This could be confirmed with ultrasound. Additionally, inflammatory stranding/fluid appears to interdigitate the fascial planes of the deep musculature of the proximal to mid forearm. No superimposed foci of soft tissue gas. TECHNICAL DOCUMENTATION: Quality ID # 436: Final reports with documentation of one or more dose reduction techniques (e.g., Automated exposure control, adjustment of the mA and/or kV according to patient size, use of iterative reconstruction technique) copyright 2011 [employer]- All Rights Reserved Assessment & Plan - Time Anticipated Discharge Disposition: Home, Self Care Anticipated Discharge Timeframe: unk - Plan Summary Plan Summary: s/p excision of thrombophlititis rt upper arm dresing removed will start wet to dry dressing changes.
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
[2020-07-05] MEDS: NICOTINE 21 MG/24 HR PATCH.TD24 TD SCH (13:50)
[2020-07-05] MEDS: PIPERACILLIN SODIUM/TAZOBACTAM 3.375 GM in NORMAL SALINE 100 ML IV SCH ×2 (14:02→18:14)
[2020-07-05] MEDS: VANCOMYCIN HCL 1,500 MG in DEXTROSE 5%-WATER 250 ML IV SCH ×2 (14:50→23:00)
--- NOTE | 2020-07-05 22:45 | XCELERA REPORT ---
[address] [address] Transthoracic Echocardiogram Report Name: ADEOLA FUENTES Age: 29 yrs Gender: Male : 1990 Patient Status: Inpatient Patient Location: [address] [place] [address] Study Date: 07/05/2020 01:16 PM Height: 75 in Weight: 188 lb BSA: 2.1 m2 Procedure: A two-dimensional transthoracic echocardiogram with color flow and Doppler was performed. Reason For Study: IV drug abuse, endocarditis History: IV drug abuse, endocarditis. Ordering Physician: ROMINA ARNOLD Performed By: Jennifer Hidalgo Interpretation Summary No vegetations or endocarditis.Recommend MADELIN if clinical suspicion is high. The left ventricle is normal in size. Left ventricular systolic function is normal. LV EF is 55% to 60% Doppler measurements suggest normal left ventricular diastolic function The left ventricular wall motion is normal. There is no thrombus. No ASD,VSD,or PFO seen. The right atrium is normal. The left atrial size is normal. There is no evidence of mitral valve prolapse. There is no vegetation seen on the mitral valve. There is no mitral valve stenosis. There is a trace amount of mitral regurgitation There is no aortic valvular vegetation. There is no aortic valve stenosis No aortic regurgitation is present. There is no tricuspid valve prolapse. There is no tricuspid valve vegetation. There is no tricuspid stenosis. There is a trace amount of tricuspid regurgitation Upper normal to mildly elevated RVSP.RVSP is 28 to 33 mm of HG with RA mean of 5 to 10. There is no pulmonic valvular stenosis. There is a trace amount of pulmonic regurgitation The aortic root is normal size. The inferior vena cava appeared normal and decreased > 50% with respiration (RAP 5-10 mmHg) There is no pericardial effusion. No vegetations or endocarditis.Recommend MADELIN if clinical suspicion is high. MMode/2D Measurements & Calculations RVDd: 1.9 cm LVIDd: 5.7 cm FS: 30.6 % Ao root diam: 2.6 cm IVSd: 0.69 cm LVIDs: 4.0 cm EDV(Teich): 160.8 ml Ao root area: 5.3 cm2 LVPWd: 1.1 cm ESV(Teich): 68.4 ml EF(Teich): 57.5 % Doppler Measurements & Calculations MV E max amie: MV dec slope: Ao V2 max: LV V1 max P.2 cm/sec 471.7 cm/sec2 158.7 cm/sec 4.1 mmHg MV A max amie: MV dec time: 0.18 secAo max PG: LV V1 max: 66.9 cm/sec 10.1 mmHg 101.0 cm/sec MV E/A: 1.2 PA V2 max: PI end-d amie: TR max amie: 108.3 cm/sec 71.1 cm/sec 239.6 cm/sec PA max P.7 mmHg TR max P.1 mmHg Left Ventricle The left ventricle is normal in size. There is normal left ventricular wall thickness. Left ventricular systolic function is normal. LV EF is 55% to 60%. Doppler measurements suggest normal left ventricular diastolic function. The left ventricular wall motion is normal. There is no thrombus. No ASD,VSD,or PFO seen. Right Ventricle The right ventricle is normal in size and function. Atria The right atrium is normal. The left atrial size is normal. Mitral Valve There is no evidence of mitral valve prolapse. There is no vegetation seen on the mitral valve. There is no mitral valve stenosis. There is a trace amount of mitral regurgitation. Aortic Valve There is no aortic valvular vegetation. There is no aortic valve stenosis. There is no LVOT obstruction. No aortic regurgitation is present. Tricuspid Valve There is no tricuspid valve prolapse. There is no tricuspid valve vegetation. There is no tricuspid stenosis. There is a trace amount of tricuspid regurgitation. Upper normal to mildly elevated RVSP.RVSP is 28 to 33 mm of HG with RA mean of 5 to 10. Pulmonic Valve There is no pulmonic valvular stenosis. There is a trace amount of pulmonic regurgitation. Great Vessels The aortic root is normal size. The inferior vena cava appeared normal and decreased > 50% with respiration (RAP 5-10 mmHg). Effusions There is no pericardial effusion. : ROMINA ARNOLD Lakshmi
[2020-07-06] MEDS: PIPERACILLIN SODIUM/TAZOBACTAM 3.375 GM in NORMAL SALINE 100 ML IV SCH ×5 (00:59→23:56)
[2020-07-06] MEDS: ACETAMINOPHEN 325 MG TABLET PO PRN ×2 (01:05→09:11)
[2020-07-06] MEDS ORDERED: NICOTINE 21 MG/24 HR PATCH.TD24 TD ONE (02:00)
[2020-07-06] MEDS: HYDROMORPHONE HCL INJ/PF 2 MG/ML AMPULE IV PRN ×4 (02:53→12:14)
[2020-07-06] MEDS: NORMAL SALINE 1000 ML 1,000 ML IV PRN ×2 (02:57→12:18)
[2020-07-06] MEDS: VANCOMYCIN HCL 1,500 MG in DEXTROSE 5%-WATER 250 ML IV SCH ×3 (06:14→21:39)
[2020-07-06] MEDS: NICOTINE 21 MG/24 HR PATCH.TD24 TD SCH (09:12)
[2020-07-06 09:33] LABS: ANION GAP 9 (5-19); BLOOD UREA NITROGEN 7 mg/dL (7-20); CALCIUM 8.4 mg/dL (8.4-10.2); CARBON DIOXIDE 24 mmol/L (22-30); CHLORIDE 104 mmol/L (98-107); GLUCOSE 159 mg/dL (75-110); POTASSIUM 3.4 mmol/L (3.6-5.0)
--- NOTE | 2020-07-06 13:01 | PDOC PROGRESS REPORT ---
Subjective Progress Note for:: 07/06/20 Reason For Visit: CELLULITIS Physical Exam Vital Signs: Temp Pulse Resp BP Pulse Ox 97.7 F 76 16 118/67 99 07/06/20 10:53 07/06/20 10:53 07/06/20 10:53 07/06/20 10:53 07/06/20 10:53 Intake & Output 07/05/20 07/06/20 07/07/20 06:59 06:59 06:59 Intake Total 3400 3075 1250 Output Total 600 Balance 3400 3075 650 Weight 85.4 kg 85.7 kg Results Laboratory Results: 07/04/20 06:52 07/06/20 09:01 07/06/20 09:01 Sodium 137.4 Potassium 3.4 L Chloride 104 Carbon Dioxide 24 Anion Gap 9 BUN 7 Creatinine 0.74 Est GFR ( Amer) > 60 Glucose 159 H Calcium 8.4 07/03/20 18:02 Arm - Right Gram Stain - Final 07/03/20 18:02 Arm - Right Wound Culture - Final Mrsa (Meth Resis Staph Aureus) 07/03/20 21:56 Nasophary (Mrsa Only) MRSA Culture - Final MRSA RECOVERED 07/04/20 06:52 Creatine Kinase 52 L Impressions: Elbow X-Ray 07/03/20 16:55 IMPRESSION: NO FRACTURE.No radiopaque foreign body. Upper Extremity CT 07/03/20 18:12 IMPRESSION: Diffuse soft tissue swelling about the upper arm extending to the elbow and forearm, as above described. Superimposed enlargement and hypodensity about the musculature along the medial aspect of the proximal to mid forearm is suspicious for underlying infectious myositis. No obvious drainable fluid collections identified on this exam. However, there is suspected superficial thrombophlebitis involving the antecubital vein. This could be confirmed with ultrasound. Additionally, inflammatory stranding/fluid appears to interdigitate the fascial planes of the deep musculature of the proximal to mid forearm. No superimposed foci of soft tissue gas. TECHNICAL DOCUMENTATION: Quality ID # 436: Final reports with documentation of one or more dose reduction techniques (e.g., Automated exposure control, adjustment of the mA and/or kV according to patient size, use of iterative reconstruction technique) copyright 2011 [employer]- All Rights Reserved Assessment & Plan - Diagnosis (1) Abscess of right arm Is this a current diagnosis for this admission?: Yes (2) Septic thrombophlebitis of upper extremities Is this a current diagnosis for this admission?: Yes - Time Anticipated Discharge Disposition: unknown Anticipated Discharge Timeframe: unknown - Plan Summary Plan Summary: 29-year-old male status post excision of the antecubital vein for septic thrombophlebitis of the right upper extremity. His swelling is improving today. I have wrapped his hand with a compressive Rgeyson wrap. I have changed his packing in his right upper extremity wound. The wound is clean, without signs of purulence. I will order damp to dry dressing changes twice daily. As far as his surgical care is concerned, he is fit for discharge, however he is still undergoing work-up for endocarditis. Please keep the right upper extremity elevated. Wear Greyson wrap to hand, wrist, and forearm until swelling is gone. Surgery service will sign off at this time. We are always available if needed. Please renotify with any questions or concerns.
--- NOTE | 2020-07-06 13:52 | PDOC PROGRESS REPORT ---
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 He states that about 3 days ago, he noticed a pustule in the right antecubital fossa. He frequently gets skin pustules that he is able to "pop" and drain himse lf. He tried to do the same thing with this particular pustule by using sharp tweezers to pull open the pustule to let it drain, but states that the area just kept getting more painful. Two days ago, he started noticing that his entire arm was becoming more red/swollen. Today, the arm was so painful and swollen that he could barely move his arm or fingers, so he decided to come to the ED. He notes that he previously struggled with IVDU but has been getting help through a local suboxone clinic. He does endorse having injected some of his prescribed suboxone "a couple weeks ago" but states that he uses a clean needle. Otherwise, he denies any other injection drug use in the last 2 weeks and states that he does not partake in skin-popping. He has a long history of skin pustules and a known prior history of MRSA skin infection. He lives with his and 3 kids; none of the rest of his family have such pustules. His only home medication is suboxone. He denies any fevers but does endorse chills. He had vomiting x1 today due to severe pain. Denies nausea, diarrhea, chest pain, SOB, GALINDO. He denies parasthesia/numbness/tingling of the right arm/hand but does endorse severe pain. 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 He states it is now starting to drain given the scab has popped off. General surgery is planning to take him to the OR as soon as his coronavirus test comes back negative. Patient denies any paresthesias, loss of sensation, pulselessness in his right arm. He states he is tolerating antibiotics well and he agrees to having an I&D. UDS positive for narcotics/cocaine/marijuana although patient adamantly denies any recent drug abuse. Otherwise patient has no new complaints today. 07/05/2020 Patient doing better today and he seems to have much healthier looking color in his right hand. He underwent I&D with washout of his right forearm and was found to have septic thrombophlebitis of his antecubital veins and these were ligated and washed out. Pus was sent for wound culture. General surgery is following. Patient continued on antibiotics. Patient has no new complaints today. I did ask him about his positive UDS and he admitted to using marijuana and his prescribed Suboxone but he denies injecting narcotics and also denies using any methamphetamines other than taking Adderall that was given to him by 1 of his friends. 07/06/2020 Discussed the case with Dr. Ziegler who stated the patient is very likely injecting illicit drugs given what he saw during the surgery. Patient still adamantly denies injecting drugs recently. TTE did not show vegetation although this test has rather low sensitivity for endocarditis. We will proceed with MADELIN assuming we have a olive knocker available to do this here. Patient does have a murmur on exam and given his drug history and MRSA in his arm and veins, it is highly likely that he has endocarditis. Reason For Visit: CELLULITIS Physical Exam Vital Signs: Temp Pulse Resp BP Pulse Ox 97.7 F 76 16 118/67 99 07/06/20 10:53 07/06/20 10:53 07/06/20 10:53 07/06/20 10:53 07/06/20 10:53 Intake & Output 07/05/20 07/06/20 07/07/20 06:59 06:59 06:59 Intake Total 3400 3075 1250 Output Total 600 Balance 3400 3075 650 Weight 85.4 kg 85.7 kg Exam: General appearance: PRESENT: no acute distress, well-developed, well-nourished, states his arm is less swollen today Head exam: PRESENT: atraumatic, normocephalic Eye exam: PRESENT: conjunctiva pink. ABSENT: scleral icterus Mouth exam: PRESENT: moist Respiratory exam: PRESENT: clear to auscultation emily. ABSENT: rales, rhonchi, wheezes Cardiovascular exam: PRESENT: RRR. ABSENT: diastolic murmur, rubs, systolic murmur GI/Abdominal exam: PRESENT: normal bowel sounds, soft. ABSENT: distended, guarding, mass, organolmegaly, rebound, tenderness Extremities exam: PRESENT: +2 edema, other - Right upper extremity forearm surgical wound with moderate edema/tenderness, gradually improving ABSENT: pedal edema Neurological exam: PRESENT: alert, awake, oriented to person, oriented to place, oriented to time, oriented to situation Psychiatric exam: PRESENT: appropriate affect, normal mood Skin exam: PRESENT: dry, intact, warm Results Laboratory Results: 07/04/20 06:52 07/06/20 09:01 07/06/20 09:01 Sodium 137.4 Potassium 3.4 L Chloride 104 Carbon Dioxide 24 Anion Gap 9 BUN 7 Creatinine 0.74 Est GFR ( Amer) > 60 Glucose 159 H Calcium 8.4 07/03/20 18:02 Arm - Right Gram Stain - Final 07/03/20 18:02 Arm - Right Wound Culture - Final Mrsa (Meth Resis Staph Aureus) 07/03/20 21:56 Nasophary (Mrsa Only) MRSA Culture - Final MRSA RECOVERED 07/04/20 06:52 Creatine Kinase 52 L Impressions: Elbow X-Ray 07/03/20 16:55 IMPRESSION: NO FRACTURE.No radiopaque foreign body. Upper Extremity CT 07/03/20 18:12 IMPRESSION: Diffuse soft tissue swelling about the upper arm extending to the elbow and forearm, as above described. Superimposed enlargement and hypodensity about the musculature along the medial aspect of the proximal to mid forearm is suspicious for underlying infectious myositis. No obvious drainable fluid collections identified on this exam. However, there is suspected superficial thrombophlebitis involving the antecubital vein. This could be confirmed with ultrasound. Additionally, inflammatory stranding/fluid appears to interdigitate the fascial planes of the deep musculature of the proximal to mid forearm. No superimposed foci of soft tissue gas. TECHNICAL DOCUMENTATION: Quality ID # 436: Final reports with documentation of one or more dose reduction techniques (e.g., Automated exposure control, adjustment of the mA and/or kV according to patient size, use of iterative reconstruction technique) copyright 2011 [employer]- All Rights Reserved Assessment and Plan - Diagnosis (1) Abscess of right arm Is this a current diagnosis for this admission?: Yes Plan: Per Previous Physician: "In the ED, CT of the arm was concerning for probable myositis and fasciitis but no drainable abscess was visualized. General surgery was consulted and performed a bedside ultrasound which was negative for DVT or SVT but did show small pockets of drainable fluid; the plan is for the patient to go to the OR tomorrow for I&D. He has no evidence of compartment syndrome at this time, but will monitor very closely for signs of increasing pain, paresthesias, tense/firm edema, pallor, decreased sensation, etc. - NPO after MN for surgery - BCx x2 obtained prior to antibiotics - start Vancomycin/Zosyn - Q4H neurovascular checks - Dilaudid 2 mg IV Q4H PRN Moderate-Severe Pain - Tylenol PRN mild pain or fever " 07/04/2020 Antibiotics continued, tolerated well per patient General surgery consulted: I&D planned Coronavirus test for OR pending Vancomycin/Zosyn Blood cultures pending 07/05/2020 Status post I&D by general surgery where patient was seen to have purulent material tracking to his right forearm and he also had septic thrombophlebitis of his antecubital veins which were washed out Wound culture pending Antibiotics continued 07/06/2020 Wound culture growing MRSA Blood culture growing 1/2 bottles of strep species (2) Cellulitis Qualifiers: Site of cellulitis: extremity Site of cellulitis of extremity: upper extremity Laterality: right Qualified Code(s): L03.113 - Cellulitis of right upper limb Is this a current diagnosis for this admission?: Yes Plan: As above (3) History of intravenous drug abuse Is this a current diagnosis for this admission?: Yes Plan: UDS positive for cannabis/cocaine/narcotics: Patient admits to using marijuana, illicit Adderall, and Suboxone; still denies injecting drugs prior to admission TTE did not show vegetation MADELIN ordered to rule out endocarditis (4) Hypokalemia Is this a current diagnosis for this admission?: Yes (5) Tobacco abuse Is this a current diagnosis for this admission?: Yes (6) History of substance abuse Is this a current diagnosis for this admission?: Yes (7) History of hepatitis C Is this a current diagnosis for this admission?: Yes (8) History of hepatitis A Is this a current diagnosis for this admission?: Yes - Plan Summary Summary: ADEOLA FUENTES is a 29 year old male with PMH of opioid dependence on Suboxone therapy, tobacco abuse (2 PPD), MRSA skin infection and 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 RUE Purulent Cellulitis: In the ED, CT of the arm was concerning for probable myositis and fasciitis but no drainable abscess was visualized. General surgery was consulted and performed a bedside ultrasound which was negative for DVT or SVT but did show small pockets of drainable fluid; the plan is for the patient to go to the OR tomorrow for I&D. He has no evidence of compartment syndrome at this time, but will monitor very closely for signs of increasing pain, paresthesias, tense/firm edema, pallor, decreased sensation, etc. - NPO after MN for surgery - BCx x2 obtained prior to antibiotics - start Vancomycin/Zosyn - Q4H neurovascular checks - Dilaudid 2 mg IV Q4H PRN Moderate-Severe Pain - Tylenol PRN mild pain or fever Lactic Acidosis: in the setting of infection/dehydration - trend lactate - IVF Mild LFT Elevation: likely due to recent HAV/HCV infections in 05/2020 - he's not sure when he was last checked for HIV, will order to be checked with AM labs - outpatient follow up for HCV treatment Hypokalemia - check Mg - replete with 40 mEq orally Opioid Dependence - hold home suboxone therapy given acute pain requiring opioid analgesia - of note, urine drug screen this admission was performed AFTER he received op ioids in the ED Tobacco Abuse - cessation counseling provided - Nicotine patch DVT ppx: young, ambulatory patient who is low risk for VTE, so will hold off on starting Lovenox for now but consider starting if he is admitted for >48 hours and/or anticipated prolonged bed rest - Time Time Spent with patient: 25-34 minutes Medications reviewed and adjusted accordingly: Yes Anticipated Discharge Disposition: Home, Self Care Anticipated Discharge Timeframe: within 72 hours - Inpatient Certification Based on my medical assessment, after consideration of the patient's comorbidities, presenting symptoms, or acuity I expect that the services needed warrant INPATIENT care.: Yes I certify that my determination is in accordance with my understanding of Medicare's requirements for reasonable and necessary INPATIENT services [42 CFR 412.3e].: Yes Medical Necessity: Significant Comorbidiites Make Outpatient Treatment Too Risky, Need Close Monitoring Due to Risk of Patient Decompensation, Need for IV Antibiotics, Risk of Complication if Not Cared For in Hospital, Risk of Diagnosis Which Will Require Inpatient Eval/Care/Monitoring
[2020-07-06] MEDS: HYDROCODONE/ACETAMINOPHEN 10-325 MG TABLET PO PRN ×2 (15:46→20:00)
--- NOTE | 2020-07-06 18:09 | EKG REPORT ---
SEVERITY:- NORMAL ECG - SINUS RHYTHM : Confirmed by: Jeffery Kirby MD 06-Jul-2020 18:09:20
[2020-07-06 21:53] LABS: VANCOMYCIN,TROUGH 13.8 ug/mL (5.0-20.0)
[2020-07-07] MEDS: HYDROCODONE/ACETAMINOPHEN 10-325 MG TABLET PO PRN ×3 (00:51→13:23)
[2020-07-07 05:16] LABS: ABSOLUTE BASOPHILS # (AUTO) 0.1 10^3/uL (0.0-0.2); ABSOLUTE EOSINOPHILS # (AUTO) 0.4 10^3/uL (0.0-0.6); ABSOLUTE LYMPHOCYTES (AUTO) 2.2 10^3/uL (0.5-4.7); ABSOLUTE NEUT (AUTO) 3.9 10^3/uL (1.7-8.2); BASOPHILS % (AUTO) 0.7 % (0-2); EOSINOPHILS % (AUTO) 4.7 % (0-6); HEMATOCRIT 33.5 % (37.9-51.0); HEMOGLOBIN 11.8 g/dL (13.5-17.0); LYMPHOCYTES % (AUTO) 29.4 % (13-45); MEAN CORPUSCULAR HEMOGLOBIN 30.3 pg (27.0-33.4); MEAN CORPUSCULAR HGB CONC 35.2 g/dL (32.0-36.0); MEAN CORPUSCULAR VOLUME 86 fl (80-97); PLATELET COUNT 394 10^3/uL (150-450); SEGMENTED NEUTROPHILS % (AUTO) 52.2 % (42-78); TOTAL CELLS COUNTED % (AUTO) 100 %; WHITE BLOOD COUNT 7.4 10^3/uL (4.0-10.5)
[2020-07-07] MEDS: PIPERACILLIN SODIUM/TAZOBACTAM 3.375 GM in NORMAL SALINE 100 ML IV SCH (05:16)
[2020-07-07 05:32] LABS: ANION GAP 10 (5-19); BLOOD UREA NITROGEN 11 mg/dL (7-20); CALCIUM 8.7 mg/dL (8.4-10.2); CARBON DIOXIDE 24 mmol/L (22-30); CHLORIDE 104 mmol/L (98-107); GLUCOSE 86 mg/dL (75-110); POTASSIUM 3.9 mmol/L (3.6-5.0)
[2020-07-07] MEDS: VANCOMYCIN HCL 1,500 MG in DEXTROSE 5%-WATER 250 ML IV SCH ×2 (06:22→13:23)
[2020-07-07 08:35] VITALS: BP 121/77
--- NOTE | 2020-07-07 11:15 | PDOC PROGRESS REPORT ---
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 He states that about 3 days ago, he noticed a pustule in the right antecubital fossa. He frequently gets skin pustules that he is able to "pop" and drain himse lf. He tried to do the same thing with this particular pustule by using sharp tweezers to pull open the pustule to let it drain, but states that the area just kept getting more painful. Two days ago, he started noticing that his entire arm was becoming more red/swollen. Today, the arm was so painful and swollen that he could barely move his arm or fingers, so he decided to come to the ED. He notes that he previously struggled with IVDU but has been getting help through a local suboxone clinic. He does endorse having injected some of his prescribed suboxone "a couple weeks ago" but states that he uses a clean needle. Otherwise, he denies any other injection drug use in the last 2 weeks and states that he does not partake in skin-popping. He has a long history of skin pustules and a known prior history of MRSA skin infection. He lives with his and 3 kids; none of the rest of his family have such pustules. His only home medication is suboxone. He denies any fevers but does endorse chills. He had vomiting x1 today due to severe pain. Denies nausea, diarrhea, chest pain, SOB, GALINDO. He denies parasthesia/numbness/tingling of the right arm/hand but does endorse severe pain. 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 He states it is now starting to drain given the scab has popped off. General surgery is planning to take him to the OR as soon as his coronavirus test comes back negative. Patient denies any paresthesias, loss of sensation, pulselessness in his right arm. He states he is tolerating antibiotics well and he agrees to having an I&D. UDS positive for narcotics/cocaine/marijuana although patient adamantly denies any recent drug abuse. Otherwise patient has no new complaints today. 07/05/2020 Patient doing better today and he seems to have much healthier looking color in his right hand. He underwent I&D with washout of his right forearm and was found to have septic thrombophlebitis of his antecubital veins and these were ligated and washed out. Pus was sent for wound culture. General surgery is following. Patient continued on antibiotics. Patient has no new complaints today. I did ask him about his positive UDS and he admitted to using marijuana and his prescribed Suboxone but he denies injecting narcotics and also denies using any methamphetamines other than taking Adderall that was given to him by 1 of his friends. 07/06/2020 Discussed the case with Dr. Ziegler who stated the patient is very likely injecting illicit drugs given what he saw during the surgery. Patient still adamantly denies injecting drugs recently. TTE did not show vegetation although this test has rather low sensitivity for endocarditis. We will proceed with MADELIN assuming we have a principal developer available to do this here. Patient does have a murmur on exam and given his drug history and MRSA in his arm and veins, it is highly likely that he has endocarditis. 07/07/2020 Arm continues to look improved each day. Patient will have a MADELIN today to rule out endocarditis as the TTE did not show a vegetation but has rather low sensitivity. Infectious disease consult placed. Wound cultures growing MRSA and patient is already on vancomycin. Strep species is growing in blood cultures. Patient has no new complaints. Reason For Visit: CELLULITIS Physical Exam Vital Signs: Temp Pulse Resp BP Pulse Ox 97.9 F 75 17 121/77 100 07/07/20 08:42 07/07/20 08:00 07/07/20 08:00 07/07/20 08:00 07/07/20 08:00 Intake & Output 07/06/20 07/07/20 07/08/20 06:59 06:59 06:59 Intake Total 3075 4572 250 Output Total 600 Balance 3075 3972 250 Weight 85.7 kg 85.7 kg Exam: General appearance: PRESENT: no acute distress, well-developed, well-nourished, states he is in agreement with MADELIN today Head exam: PRESENT: atraumatic, normocephalic Eye exam: PRESENT: conjunctiva pink. ABSENT: scleral icterus Mouth exam: PRESENT: moist Respiratory exam: PRESENT: clear to auscultation emily. ABSENT: rales, rhonchi, wheezes Cardiovascular exam: PRESENT: RRR. ABSENT: diastolic murmur, rubs, systolic murmur GI/Abdominal exam: PRESENT: normal bowel sounds, soft. ABSENT: distended, guarding, mass, organolmegaly, rebound, tenderness Extremities exam: PRESENT: +2 edema, other - Right upper extremity forearm surgical wound with moderate edema/tenderness, improved. ABSENT: pedal edema Neurological exam: PRESENT: alert, awake, oriented to person, oriented to place, oriented to time, oriented to situation Psychiatric exam: PRESENT: appropriate affect, normal mood Skin exam: PRESENT: dry, intact, warm Results Laboratory Results: 07/07/20 04:16 07/07/20 04:16 07/07/20 07/07/20 04:16 04:16 WBC 7.4 RBC 3.90 L Hgb 11.8 L Hct 33.5 L MCV 86 MCH 30.3 MCHC 35.2 RDW 14.0 Plt Count 394 Seg Neutrophils % 52.2 Sodium 138.4 Potassium 3.9 Chloride 104 Carbon Dioxide 24 Anion Gap 10 BUN 11 Creatinine 0.87 Est GFR ( Amer) > 60 Glucose 86 Calcium 8.7 07/03/20 17:58 Blood Blood Culture (PCR) - Final Streptococcus Species 07/03/20 18:02 Arm - Right Gram Stain - Final 07/03/20 18:02 Arm - Right Wound Culture - Final Mrsa (Meth Resis Staph Aureus) 07/04/20 06:52 Creatine Kinase 52 L Impressions: Elbow X-Ray 07/03/20 16:55 IMPRESSION: NO FRACTURE.No radiopaque foreign body. Upper Extremity CT 07/03/20 18:12 IMPRESSION: Diffuse soft tissue swelling about the upper arm extending to the elbow and forearm, as above described. Superimposed enlargement and hypodensity about the musculature along the medial aspect of the proximal to mid forearm is suspicious for underlying infectious myositis. No obvious drainable fluid collections identified on this exam. However, there is suspected superficial thrombophlebitis involving the antecubital vein. This could be confirmed with ultrasound. Additionally, inflammatory stranding/fluid appears to interdigitate the fascial planes of the deep musculature of the proximal to mid forearm. No superimposed foci of soft tissue gas. TECHNICAL DOCUMENTATION: Quality ID # 436: Final reports with documentation of one or more dose reduction techniques (e.g., Automated exposure control, adjustment of the mA and/or kV according to patient size, use of iterative reconstruction technique) copyright 2011 [employer]- All Rights Reserved Assessment and Plan - Diagnosis (1) Abscess of right arm Is this a current diagnosis for this admission?: Yes Plan: Per Previous Physician: "In the ED, CT of the arm was concerning for probable myositis and fasciitis but no drainable abscess was visualized. General surgery was consulted and performed a bedside ultrasound which was negative for DVT or SVT but did show small pockets of drainable fluid; the plan is for the patient to go to the OR tomorrow for I&D. He has no evidence of compartment syndrome at this time, but will monitor very closely for signs of increasing pain, paresthesias, tense/firm edema, pallor, decreased sensation, etc. - NPO after MN for surgery - BCx x2 obtained prior to antibiotics - start Vancomycin/Zosyn - Q4H neurovascular checks - Dilaudid 2 mg IV Q4H PRN Moderate-Severe Pain - Tylenol PRN mild pain or fever " 07/04/2020 Antibiotics continued, tolerated well per patient General surgery consulted: I&D planned Coronavirus test for OR pending Vancomycin/Zosyn Blood cultures pending 07/05/2020 Status post I&D by general surgery where patient was seen to have purulent material tracking to his right forearm and he also had septic thrombophlebitis of his antecubital veins which were washed out Wound culture pending Antibiotics continued 07/06/2020 Wound culture growing MRSA Blood culture growing 1/2 bottles of strep species 07/07/2020 Blood cultures now growing strep species which is not fully resulted Infectious disease consult placed Continue on vancomycin, stopped Zosyn as there are no gram-negative's or anaerobes growing in cultures If patient has infectious endocarditis will need long-term IV antibiotics and PICC line (2) Cellulitis Qualifiers: Site of cellulitis: extremity Site of cellulitis of extremity: upper extremity Laterality: right Qualified Code(s): L03.113 - Cellulitis of right upper limb Is this a current diagnosis for this admission?: Yes (3) History of intravenous drug abuse Is this a current diagnosis for this admission?: Yes Plan: UDS positive for cannabis/cocaine/narcotics: Patient admits to using marijuana, illicit Adderall, and Suboxone; still denies injecting drugs prior to admission TTE did not show vegetation MADELIN 07/07 (4) Hypokalemia Is this a current diagnosis for this admission?: Yes (5) Tobacco abuse Is this a current diagnosis for this admission?: Yes (6) History of substance abuse Is this a current diagnosis for this admission?: Yes (7) History of hepatitis C Is this a current diagnosis for this admission?: Yes (8) History of hepatitis A Is this a current diagnosis for this admission?: Yes - Plan Summary Summary: ADEOLA FUENTES is a 29 year old male with PMH of opioid dependence on Suboxone therapy, tobacco abuse (2 PPD), MRSA skin infection and 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 RUE Purulent Cellulitis: In the ED, CT of the arm was concerning for probable myositis and fasciitis but no drainable abscess was visualized. General surgery was consulted and performed a bedside ultrasound which was negative for DVT or SVT but did show small pockets of drainable fluid; the plan is for the patient to go to the OR tomorrow for I&D. He has no evidence of compartment syndrome at this time, but will monitor very closely for signs of increasing pain, paresthesias, tense/firm edema, pallor, decreased sensation, etc. - NPO after MN for surgery - BCx x2 obtained prior to antibiotics - start Vancomycin/Zosyn - Q4H neurovascular checks - Dilaudid 2 mg IV Q4H PRN Moderate-Severe Pain - Tylenol PRN mild pain or fever Lactic Acidosis: in the setting of infection/dehydration - trend lactate - IVF Mild LFT Elevation: likely due to recent HAV/HCV infections in 05/2020 - he's not sure when he was last checked for HIV, will order to be checked with AM labs - outpatient follow up for HCV treatment Hypokalemia - check Mg - replete with 40 mEq orally Opioid Dependence - hold home suboxone therapy given acute pain requiring opioid analgesia - of note, urine drug screen this admission was performed AFTER he received opioids in the ED Tobacco Abuse - cessation counseling provided - Nicotine patch DVT ppx: young, ambulatory patient who is low risk for VTE, so will hold off on starting Lovenox for now but consider starting if he is admitted for >48 hours and/or anticipated prolonged bed rest - Time Time Spent with patient: 15-24 minutes Medications reviewed and adjusted accordingly: Yes Anticipated Discharge Disposition: Home, Self Care Anticipated Discharge Timeframe: within 72 hours - Inpatient Certification Based on my medical assessment, after consideration of the patient's comorbidities, presenting symptoms, or acuity I expect that the services needed warrant INPATIENT care.: Yes I certify that my determination is in accordance with my understanding of Medicare's requirements for reasonable and necessary INPATIENT services [42 CFR 412.3e].: Yes Medical Necessity: Significant Comorbidiites Make Outpatient Treatment Too Risky, Need Close Monitoring Due to Risk of Patient Decompensation, Need for IV Antibiotics, Risk of Complication if Not Cared For in Hospital, Risk of Diagnosi s Which Will Require Inpatient Eval/Care/Monitoring
[2020-07-07] MEDS: NICOTINE 21 MG/24 HR PATCH.TD24 TD SCH (11:48)
--- NOTE | 2020-07-07 15:22 | Left Against Medical Advice ---
Against Medical Advice Admission Date/Time: 07/03/20 22:11 Primary Care Provider: Date of Patient Emigration: 07/07/20 - Diagnosis: (1) Abscess of right arm Is this a current diagnosis for this admission?: Yes (2) Cellulitis Is this a current diagnosis for this admission?: Yes (3) History of intravenous drug abuse Is this a current diagnosis for this admission?: Yes (4) Hypokalemia Is this a current diagnosis for this admission?: Yes (5) Tobacco abuse Is this a current diagnosis for this admission?: Yes (6) History of substance abuse Is this a current diagnosis for this admission?: Yes (7) History of hepatitis C Is this a current diagnosis for this admission?: Yes (8) History of hepatitis A Is this a current diagnosis for this admission?: Yes - Summary: Summary: Please see Admission and Progress Notes as well. ADEOLA FUENTES is a 29 M, who LEFT AGAINST MEDICAL ADVICE. He refused to have his MADELIN prior to leaving and did not want to wait for any prescriptions or antibiotics. He is aware that he can return to the hospital at any time and we will be glad to continue his care. The Patient was admitted on 07/03/20 22:11.
== END 2020-07-07 14:50 | disposition left against medical advice (07) | DRG 253 ==
LOC: ER 16:18 → EH 22:11 → 4N 23:57
PROVIDERS: ADMIT Hospitalist; ATTEND Internal Medicine
PROC: B54MZZZ Ultrasonography of Right Upper Extremity Veins (ICD-10-PCS; 2020-07-03)
PROC: 0J9G0ZX Drainage of Right Lower Arm Subcutaneous Tissue and Fascia, Open Approach, Diagnostic (ICD-10-PCS; 2020-07-04)
PROC: 05BY0ZZ Excision of Upper Vein, Open Approach (ICD-10-PCS; principal; 2020-07-04 11:45)
DX: I80.8 Phlebitis and thrombophlebitis of other sites (principal); L02.413 Cutaneous abscess of right upper limb; F11.20 Opioid dependence, uncomplicated; L03.113 Cellulitis of right upper limb; B15.9 Hepatitis A without hepatic coma; B18.2 Chronic viral hepatitis C; D72.825 Bandemia; F17.210 Nicotine dependence, cigarettes, uncomplicated; Z86.14 Personal history of Methicillin resistant Staphylococcus aureus infection; E87.6 Hypokalemia; Z90.49 Acquired absence of other specified parts of digestive tract; Z83.3 Family history of diabetes mellitus; Z82.3 Family history of stroke; Z82.61 Family history of arthritis
CPT/HCPCS: 00400; 36415; 80048; 80053; 80202; 80307; 82550; 82565; 83605; 83735; 84439; 84443; 85025; 85610; 85730; 86701; 87040; 87070; 87075; 87077; 87150; 87186; 87205; 87635; 88305; 93005; 93010; 93306; 96361; 96365; 96367; 96375; 99285; C9803; J0330; J0692; J1170; J2060; J2250; J2270; J2405; J2543; J2704; J3010; J3370; J3490; J7030; J7050; J7060